=== PATIENT | male | born 1980 | race African-American/Black ===

== ENCOUNTER 2019-04-01 15:55 | Emergency (ER) | payer SELFPAY ==
[2019-04-01] MEDS ORDERED: DIPHENHYDRAMINE 50 MG/ML VIAL ONE (16:33)
[2019-04-01] MEDS ORDERED: NA CHLORIDE 0.9% 100 ML IV ONE (16:33)
[2019-04-01] MEDS ORDERED: KETOROLAC 30 MG/ML INJ ONE (16:33)
[2019-04-01] MEDS ORDERED: METOCLOPRAMIDE 10 MG/2mL INJ ONE (16:33)
[2019-04-01] MEDS ORDERED: NA CHLORIDE 0.9% 1,000 ML ONE (16:34)
--- NOTE | 2019-04-01 17:10 | RAD REPORT ---
EXAM DESCRIPTION: CT - Head Brain Wo Cont - 04/01/2019 5:02 pm CLINICAL HISTORY: HEADACHE Headache, drowsiness. COMPARISON: No comparisonsNo comparisons TECHNIQUE: All CT scans are performed using dose optimization technique as appropriate and may inclu de automated exposure control or mA/KV adjustment according to patient size. FINDINGS: The lateral ventricles, third ventricle and fourth ventricle appears enlarged with dilatat ion of the temporal horns compatible with moderate hydrocephalus.No acute hemorrhage or extra-axial f luid collection.No midline shift is evident. The paranasal sinuses and mastoids are clear. The calvarium is intact. IMPRESSION: Moderate hydrocephalus is suspected.
--- NOTE | 2019-04-01 17:37 | ER ---
Nurse's Notes [facility] Name: Gurpreet Davis Age: 38 yrs Sex: Male : 1980 Arrival Date: 04/01/2019 Time: 15:59 Bed 15 Private MD: Diagnosis: Hydrocephalus Presentation: 04/01 16:03 Presenting complaint: Presenting complaint: Patient states: Headache in frontal area ph and top of head this morning, also reports N/V and sweating while working outdoors in cold temp, reports taking Aleve which usually relieves his headaches but did not work today. 16:08 Transition of care: patient was not received from another setting of care. Onset of ph symptoms was April 01, 2019. Risk Assessment: Do you want to hurt yourself or someone else? Patient reports no desire to harm self or others. Initial Sepsis Screen: Does the patient meet any 2 criteria? No. Patient's initial sepsis screen is negative. Does the patient have a suspected source of infection? No. Patient's initial sepsis screen is negative. Care prior to arrival: Medication(s) given: Aleve at 1400. 16:08 Method Of Arrival: Ambulatory ph 16:08 Acuity: YURY 3 ph Historical: - Allergies: 16:11 No Known Allergies; ph - Home Meds: 16:11 None [Active]; ph - PMHx: 16:11 None; ph - PSHx: 16:11 None; ph - Immunization history:: Adult Immunizations unknown. - Social history:: Smoking status: Patient/guardian denies using tobacco. - Ebola Screening: : No symptoms or risks identified at this time. Screenin:40 Abuse screen: Denies threats or abuse. Denies injuries from another. Nutritional sg screening: No deficits noted. Tuberculosis screening: No symptoms or risk factors identified. Never had TB. Fall Risk None identified. Assessment: 16:40 General: Appears in no apparent distress. well groomed, well developed, well nourished, sg Behavior is calm, cooperative, appropriate for age. Pain: Complains of pain in forehead Quality of pain is described as aching, throbbing. Neuro: Level of Consciousness is awake, alert, obeys commands, Oriented to person, place, time, situation, Manager Of Corporate are equal bilaterally Moves all extremities. Full function Speech is normal, Facial symmetry appears normal, Reports headache in entire frontal area. Cardiovascular: Heart tones S1 S2 present Chest pain is denied. Respiratory: Airway is patent Respiratory effort is even, unlabored, Respiratory pattern is regular, symmetrical. GI: No signs and/or symptoms were reported involving the gastrointestinal system. : No signs and/or symptoms were reported regarding the genitourinary system. EENT: No signs and/or symptoms were reported regarding the EENT system. Derm: Skin is pink, warm \T\ dry. Musculoskeletal: Circulation, motion, and sensation intact. Range of motion: intact in all extremities. 17:59 Reassessment: Patient appears in no apparent distress at this time. Patient and/or sg family updated on plan of care and expected duration. Pain level reassessed. Patient is alert, oriented x 3, equal unlabored respirations, skin warm/dry/pink. Vital Signs: 16:10 BP 135 / 92; Pulse 88; Resp 18; Temp 98.3; Pulse Ox 97% on R/A; Weight 151.95 kg; Pain ph 4/10; ED Course: 15:59 Patient arrived in ED. mr 16:08 Mesfin Short, HALLEY is PHCP. pm1 16:08 Steve Garnica MD is Attending Physician. pm1 16:10 Triage completed. ph 16:11 Arm band placed on Patient placed in an exam room, on a stretcher. ph 16:13 Gee Salcedo, RN is Primary Nurse. sg 16:30 Patient has correct armband on for positive identification. Bed in low position. Call sg light in reach. Side rails up X2. deck hand on. Pulse ox on. NIBP on. Warm blanket given. Head of bed elevated. 16:38 Inserted saline lock: 20 gauge in right antecubital area, using aseptic technique. dh3 16:40 No provider procedures requiring assistance completed. sg 17:03 CT Head Brain wo Cont In Process Unspecified. EDMS 17:41 Chetan Shaffer MD is Referral Physician. pm1 18:00 IV discontinued, intact, bleeding controlled, No redness/swelling at site. Pressure sg dressing applied. Administered Medications: 16:40 Drug: Reglan 10 mg Route: IVP; Site: right antecubital; sg 17:42 Follow up: Response: No adverse reaction sg 16:40 Drug: TORadol - Ketorolac 15 mg Route: IVP; Site: right antecubital; sg 17:50 Follow up: Response: No adverse reaction sg 16:40 Drug: Benadryl 12.5 mg Route: IVP; Site: right antecubital; sg 18:05 Follow up: Response: No adverse reaction sg 16:40 Drug: NS 0.9% 1000 ml Route: IV; Rate: 1000 ml; Site: right antecubital; sg 17:45 Follow up: Response: No adverse reaction; IV Status: Completed infusion; IV Intake: sg 990ml 17:56 Drug: Diamox Sequels 500 mg Route: PO; jl7 18:15 Follow up: Response: No adverse reaction; Pain is unchanged, physician notified sg Intake: 17:45 IV: 990ml; Total: 990ml. sg Outcome: 17:36 Discharge ordered by MD. pm1 17:59 Discharged to home ambulatory, with friend. sg 17:59 Condition: good 17:59 Discharge instructions given to patient, Instructed on discharge instructions, follow up and referral plans. medication usage, safety practices, Demonstrated understanding of instructions, follow-up care, medications, Prescriptions given X 2. 18:27 Patient left the ED. sg Signatures: Dispatcher [employer] EDMS Gee Salcedo RN RN Cheikh, Sharmaine Ramos RN RN Mesfin Short, HALLEY ASSOCIATE DIRECTOR QA pm1 Diaz Holguin RN RN jl7 Nadege Verdin 3 Corrections: (The following items were deleted from the chart) 16:10 16:03 Presenting complaint: ph ph
--- NOTE | 2019-04-01 17:37 | EDPHYS ---
Physician Documentation [facility] Name: Gurpreet Davis Age: 38 yrs Sex: Male : 1980 Arrival Date: 04/01/2019 Time: 15:59 Bed 15 Private MD: ED Physician Steve Garnica HPI: 04/01 16:28 This 38 yrs old Black Male presents to ER via Ambulatory with complaints of Headache, pm1 Nausea. 16:28 The patient complains of pain to the forehead. The patient describes the headache as pm1 aching, constant. Onset: The symptoms/episode began/occurred this morning. Associated signs and symptoms: Pertinent positives: nausea, vomiting, Pertinent negatives: dizziness, fever, neck stiffness, Photophobia rash, sinus congestion, sinus tenderness, vision changes. Severity of symptoms: in the emergency department the pain has improved, mildly, a " 4" out of "10". Headache History: The patient has had previous headaches and this one is similar to previous episodes. The symptoms are alleviated by nothing. the symptoms are aggravated by nothing. The patient has experienced similar episodes in the past, a few times. The patient has not recently seen a physician. OTC NSAIDs typically work well for his headaches. Historical: - Allergies: 16:11 No Known Allergies; ph - Home Meds: 16:11 None [Active]; ph - PMHx: 16:11 None; ph - PSHx: 16:11 None; ph - Immunization history:: Adult Immunizations unknown. - Social history:: Smoking status: Patient/guardian denies using tobacco. - Ebola Screening: : No symptoms or risks identified at this time. ROS: 16:28 Constitutional: Negative for fever, chills, and weight loss, Eyes: Negative for injury, pm1 pain, redness, and discharge, ENT: Negative for injury, pain, and discharge, Neck: Negative for injury, pain, and swelling, Cardiovascular: Negative for chest pain, palpitations, and edema, Respiratory: Negative for shortness of breath, cough, wheezing, and pleuritic chest pain, Abdomen/GI: Negative for abdominal pain, nausea, vomiting, diarrhea, and constipation, Back: Negative for injury and pain, MS/Extremity: Negative for injury and deformity, Skin: Negative for injury, rash, and discoloration. 16:28 Neuro: Positive for headache, Negative for dizziness, numbness, tingling, weakness. Exam: 16:28 Constitutional: This is a well developed, well nourished patient who is awake, alert, pm1 and in no acute distress. Head/Face: Normocephalic, atraumatic. Eyes: Pupils equal round and reactive to light, extra-ocular motions intact. Lids and lashes normal. Conjunctiva and sclera are non-icteric and not injected. Cornea within normal limits. Periorbital areas with no swelling, redness, or edema. ENT: Nares patent. No nasal discharge, no septal abnormalities noted. Tympanic membranes are normal and external auditory canals are clear. Oropharynx with no redness, swelling, or masses, exudates, or evidence of obstruction, uvula midline. Mucous membranes moist. Neck: Trachea midline, no thyromegaly or masses palpated, and no cervical lymphadenopathy. Supple, full range of motion without nuchal rigidity, or vertebral point tenderness. No Meningismus. Chest/axilla: Normal chest wall appearance and motion. Nontender with no deformity. No lesions are appreciated. Cardiovascular: Regular rate and rhythm with a normal S1 and S2. No gallops, murmurs, or rubs. No pulse deficits. Respiratory: Lungs have equal breath sounds bilaterally, clear to auscultation and percussion. No rales, rhonchi or wheezes noted. No increased work of breathing, no retractions or nasal flaring. Abdomen/GI: Soft, non-tender, with normal bowel sounds. No distension or tympany. No guarding or rebound. No evidence of tenderness throughout. Back: No spinal tenderness. No costovertebral tenderness. Full range of motion. Skin: Warm, dry with normal turgor. Normal color with no rashes, no lesions, and no evidence of cellulitis. MS/ Extremity: Pulses equal, no cyanosis. Neurovascular intact. Full, normal range of motion. 16:28 Neuro: Orientation: is normal, Mentation: is normal, Cerebellar function: normal finger to nose testing, Motor: is normal, moves all fours, strength is normal, strength is 5/5 in all extremities, Sensation: is normal. Vital Signs: 16:10 BP 135 / 92; Pulse 88; Resp 18; Temp 98.3; Pulse Ox 97% on R/A; Weight 151.95 kg; Pain ph 4/10; MDM: 16:08 Patient medically screened. pm1 16:38 Data reviewed: vital signs. Data interpreted: Pulse oximetry: on room air is 97 %. pm1 Interpretation: normal. 17:25 Physician consultation: Stefan Schultz MD was called at 17:25, was contacted at 17:25, pm1 regarding consult, patient's condition, Patient needs a LAUNDRETTE OWNER Shunt but does not need it immediately or require transfer to hospital with neurosurgery. Will need to follow up with neurosurgery on outpatient basis. May discharge the patient home with Diamox 250-500 mg PO BID. Recommends contacting [facility] for patient follow up. 17:28 Physician consultation: Chetan Shaffer MD was contacted at 17:28, He is currently pm1 scrubbing up for surgery. Briefly discussed case with him and he said that he would call Dr. Schultz back. 17:31 Counseling: I had a detailed discussion with the patient and/or guardian regarding: the pm1 historical points, exam findings, and any diagnostic results supporting the discharge/admit diagnosis, radiology results, the need for outpatient follow up, for definitive care, a neurosurgeon, to return to the emergency department if symptoms worsen or persist or if there are any questions or concerns that arise at home. 18:35 Physician consultation: Chetan Shaffer MD Called back and informed me that he does not pm1 perform LAUNDRETTE OWNER shunts anymore. He refers the patient to other neurosurgeons in the [facility] or [facility]. 18:43 ED course: Gave the patient information for neurosurgeons at [facility] pm1 and [facility]. 04/01 16:27 Order name: CT Head Brain wo Cont; Complete Time: 17:14 pm1 Administered Medications: 16:40 Drug: Reglan 10 mg Route: IVP; Site: right antecubital; sg 17:42 Follow up: Response: No adverse reaction sg 16:40 Drug: TORadol - Ketorolac 15 mg Route: IVP; Site: right antecubital; sg 17:50 Follow up: Response: No adverse reaction sg 16:40 Drug: Benadryl 12.5 mg Route: IVP; Site: right antecubital; sg 18:05 Follow up: Response: No adverse reaction sg 16:40 Drug: NS 0.9% 1000 ml Route: IV; Rate: 1000 ml; Site: right antecubital; sg 17:45 Follow up: Response: No adverse reaction; IV Status: Completed infusion; IV Intake: sg 990ml 17:56 Drug: Diamox Sequels 500 mg Route: PO; jl7 18:15 Follow up: Response: No adverse reaction; Pain is unchanged, physician notified sg Disposition: 04/02 07:32 Co-signature as Attending Physician, Steve Garnica MD I agree with the assessment and kdr plan of care. Disposition: 04/01/19 17:36 Discharged to Home. Impression: Hydrocephalus. - Condition is Stable. - Discharge Instructions: General Headache Without Cause, Hydrocephalus, Pediatric. - Prescriptions for Diamox Sequels 500 mg Oral capsule, extended release - take 1 capsule by ORAL route 2 times per day; 30 capsule. Zofran 4 mg Oral Tablet - take 1 tablet by ORAL route every 12 hours As needed; 20 tablet. - Work release form, Medication Reconciliation Form, Thank You Letter, Antibiotic Education, Prescription Opioid Use form. - Follow up: Emergency Department; When: As needed; Reason: Worsening of condition. Follow up: Chetan Shaffer MD; When: 1 - 2 days; Reason: Recheck today's complaints, Continuance of care, Re-evaluation by your physician. - Problem is new. - Symptoms have improved. Signatures: Dispatcher [employer] EDMS Gee Salcedo, RN Steve Rodriguez MD MD [facility] Sharmaine Pacheco RN RN Mesfin Short, BEADING MACHINE OPERATOR BEADING MACHINE OPERATOR pm1 Diaz Holguin RN RN jl7 Corrections: (The following items were deleted from the chart) 04/01 17:41 17:36 04/01/2019 17:36 Discharged to Home. Impression: Hydrocephalus. Condition is pm1 Stable. Forms are Medication Reconciliation Form, Thank You Letter, Antibiotic Education, Prescription Opioid Use. Follow up: Emergency Department; When: As needed; Reason: Worsening of condition. Follow up: Private Physician; When: 2 - 3 days; Reason: Recheck today's complaints, Continuance of care, Re-evaluation by your physician. Problem is new. Symptoms have improved. pm1 18:27 17:41 04/01/2019 17:36 Discharged to Home. Impression: Hydrocephalus. Condition is sg Stable. Discharge Instructions: Hydrocephalus, Pediatric, General Headache Without Cause. Prescriptions for Diamox Sequels 500 mg Oral capsule, extended release - take 1 capsule by ORAL route 2 times per day; 30 capsule, Zofran 4 mg Oral Tablet - take 1 tablet by ORAL route every 12 hours As needed; 20 tablet. and Forms are Medication Reconciliation Form, Thank You Letter, Antibiotic Education, Prescription Opioid Use. Follow up: Emergency Department; When: As needed; Reason: Worsening of condition. Follow up: Chetan Shaffer; When: 1 - 2 days; Reason: Recheck today's complaints, Continuance of care, Re-evaluation by your physician. Problem is new. Symptoms have improved. pm1
[2019-04-01] MEDS ORDERED: acetaZOLAMIDE 250 MG TAB PO ONE (18:00)
[2019-04-01 18:58] VITALS: BP 135/92; TEMP 98.3; O2SAT 97
== END 2019-04-01 18:27 | disposition home or self-care (01) ==
LOC: ER 15:55
DX: G91.9 Hydrocephalus, unspecified (principal)
CPT/HCPCS: 70450; 96361; 96374; 96375; 99284; J1200; J2765; J7030

== ENCOUNTER 2020-03-22 13:27 | Emergency (ER) | payer OTHER, SELFPAY ==
[2020-03-22] MEDS ORDERED: CYCLOBENZAPRINE 10 MG TAB ONE (15:02)
--- NOTE | 2020-03-22 15:30 | RAD REPORT ---
EXAM DESCRIPTION: CT - Stone Protocol - 03/22/2020 3:15 pm CLINICAL HISTORY: Flank pain. ABD PAIN COMPARISON: No comparisons TECHNIQUE: Axial images were obtained without oral or IV contrast. Lack of contrast limits solid org an and vascular assessment. The [id number] spans the entirety of the system partially obscuring uppermost abdomen and lung bases. Coronal reformatted images were obtained and reviewed. All CT scans are performed using dose optimization technique as appropriate and may include automated exposure control or mA/KV adjustment according to patient size. FINDINGS: The lower lung [place] are clear. Imaged portions of the liver and spleen show no suspicious findings on non-contrast imaging. The panc reas and adrenal glands are normal. No pathologic lymphadenopathy in the abdomen or pelvis. No urinary tract stones or obstructive uropathy. No bowel obstruction, free air, free fluid or abscess. Normal appendix noted. No significant bony abnormality. IMPRESSION: No urinary tract stones or obstructive uropathy.
--- NOTE | 2020-03-22 15:39 | EDPHYS ---
Physician Documentation [facility] Name: Gurpreet Davis Age: 39 yrs Sex: Male : 1980 Arrival Date: 03/22/2020 Time: 13:33 Bed 14 Private MD: ED Physician Prateek Cast HPI: 03/22 15:36 This 39 yrs old Black Male presents to ER via Ambulatory with complaints of Abdominal kb Pain. 15:36 The patient presents with abdominal pain left lateral abd. Onset: The symptoms/episode kb began/occurred today. The symptoms do not radiate. Associated signs and symptoms: none. The symptoms are described as sore. Modifying factors: the symptoms are aggravated by movement. Severity of pain: At its worst the pain was mild in the emergency department the pain is unchanged. The patient has not experienced similar symptoms in the past. The patient has not recently seen a physician. Pt reports left lateral abd soreness, like he did crunches. States the pain is worse with stretching, twisted, lifting, moving.. Historical: - Allergies: 13:53 No Known Allergies; jd3 - Home Meds: 13:53 None [Active]; jd3 - PMHx: 13:53 None; jd3 - PSHx: 13:53 None; jd3 - Immunization history:: Adult Immunizations unknown. - Social history:: Smoking status: Patient denies any tobacco usage or history of. ROS: 15:36 Constitutional: Negative for fever, chills, and weight loss, Cardiovascular: Negative kb for chest pain, palpitations, and edema, Respiratory: Negative for shortness of breath, cough, wheezing, and pleuritic chest pain, Back: Negative for injury and pain, MS/Extremity: Negative for injury and deformity, Skin: Negative for injury, rash, and discoloration, Neuro: Negative for headache, weakness, numbness, tingling, and seizure. 15:36 Abdomen/GI: Positive for abdominal pain, Negative for nausea, vomiting, and diarrhea. Exam: 15:36 Constitutional: This is a well developed, well nourished patient who is awake, alert, kb and in no acute distress. Head/Face: Normocephalic, atraumatic. Chest/axilla: Normal chest wall appearance and motion. Nontender with no deformity. No lesions are appreciated. Cardiovascular: Regular rate and rhythm with a normal S1 and S2. No gallops, murmurs, or rubs. Normal PMI, no JVD. No pulse deficits. Respiratory: Lungs have equal breath sounds bilaterally, clear to auscultation and percussion. No rales, rhonchi or wheezes noted. No increased work of breathing, no retractions or nasal flaring. Abdomen/GI: Soft, non-tender, with normal bowel sounds. No distension or tympany. No guarding or rebound. No evidence of tenderness throughout. Back: No spinal tenderness. No costovertebral tenderness. Full range of motion. Skin: Warm, dry with normal turgor. Normal color with no rashes, no lesions, and no evidence of cellulitis. MS/ Extremity: Pulses equal, no cyanosis. Neurovascular intact. Full, normal range of motion. Neuro: Awake and alert, GCS 15, oriented to person, place, time, and situation. Cranial nerves II-XII grossly intact. Motor strength 5/5 in all extremities. Sensory grossly intact. Cerebellar exam normal. Normal gait. Vital Signs: 13:53 BP 153 / 95; Pulse 83; Resp 17 S; Temp 97.3(TE); Pulse Ox 97% on R/A; Weight 158.76 kg jd3 (R); Height 5 ft. 7 in. (170.18 cm) (R); Pain 10/10; 15:45 BP 139 / 77; Pulse 81; Resp 16 S; Pulse Ox 98% on R/A; ca1 13:53 Body Mass Index 54.82 (158.76 kg, 170.18 cm) jd3 MDM: 14:33 Patient medically screened. kb 15:35 Data reviewed: vital signs, nurses notes. Data interpreted: Pulse oximetry: on room air kb is 97 %. Interpretation: normal. Counseling: I had a detailed discussion with the patient and/or guardian regarding: the historical points, exam findings, and any diagnostic results supporting the discharge/admit diagnosis, radiology results, the need for outpatient follow up, a family practitioner, to return to the emergency department if symptoms worsen or persist or if there are any questions or concerns that arise at home. 03/22 14:42 Order name: CT Stone Protocol; Complete Time: 15:35 kb Administered Medications: 14:50 Drug: Flexeril 10 mg Route: PO; ca1 Disposition: 16:32 Co-signature as Attending Physician, Prateek Cast MD. rn Disposition: 03/22/20 15:38 Discharged to Home. Impression: Strain of muscle, fascia and tendon of abdomen. - Condition is Stable. - Discharge Instructions: Muscle Strain, [id number]. - Prescriptions for Ibuprofen 800 mg Oral Tablet - take 1 tablet by ORAL route every 8 hours As needed take with food; 30 tablet. Cyclobenzaprine 10 mg Oral Tablet - take 1 tablet by ORAL route every 8 hours As needed; 21 tablet. - Medication Reconciliation Form, Thank You Letter, Antibiotic Education, Prescription Opioid Use form. - Follow up: Emergency Department; When: As needed; Reason: Worsening of condition. Follow up: Private Physician; When: 2 - 3 days; Reason: Recheck today's complaints, Continuance of care, Re-evaluation by your physician. Signatures: Dispatcher [employer] EDMS Denisse Mota, PAINTER ROUGH-C PAINTER ROUGH-Ckb Prateek Cast MD MD rn Davies, Jonathon, RN RN jd3 Andra Maciel RN RN ca1 Corrections: (The following items were deleted from the chart) 16:12 15:38 03/22/2020 15:38 Discharged to Home. Impression: Strain of muscle, fascia and ca1 tendon of abdomen. Condition is Stable. Forms are Medication Reconciliation Form, Thank You Letter, Antibiotic Education, Prescription Opioid Use. Follow up: Emergency Department; When: As needed; Reason: Worsening of condition. Follow up: Private Physician; When: 2 - 3 days; Reason: Recheck today's complaints, Continuance of care, Re-evaluation by your physician. kb
--- NOTE | 2020-03-22 15:39 | ER ---
Nurse's Notes [facility] Name: Gurpreet Davis Age: 39 yrs Sex: Male : 1980 Arrival Date: 03/22/2020 Time: 13:33 Bed 14 Private MD: Diagnosis: Strain of muscle, fascia and tendon of abdomen Presentation: 03/22 13:52 Chief complaint: Patient states: "I got to work and I sneezed and seance then I feel jd3 like i have been doing crunches, but i haven't done anything.". Coronavirus screen: At this time, the client does not indicate any symptoms associated with coronavirus-19. Ebola Screen: Patient negative for fever greater than or equal to 101.5 degrees Fahrenheit, and additional compatible Ebola Virus Disease symptoms. Initial Sepsis Screen: Does the patient meet any 2 criteria? No. Patient's initial sepsis screen is negative. Does the patient have a suspected source of infection? No. Patient's initial sepsis screen is negative. Risk Assessment: Do you want to hurt yourself or someone else? Patient reports no desire to harm self or others. Onset of symptoms was March 22, 2020. 13:52 Method Of Arrival: Ambulatory jd3 13:52 Acuity: YURY 3 jd3 Historical: - Allergies: 13:53 No Known Allergies; jd3 - Home Meds: 13:53 None [Active]; jd3 - PMHx: 13:53 None; jd3 - PSHx: 13:53 None; jd3 - Immunization history:: Adult Immunizations unknown. - Social history:: Smoking status: Patient denies any tobacco usage or history of. Screenin:35 Abuse screen: Denies threats or abuse. Denies injuries from another. Nutritional ca1 screening: No deficits noted. Tuberculosis screening: No symptoms or risk factors identified. Fall Risk None identified. Assessment: 14:35 General: Appears in no apparent distress. uncomfortable, Behavior is calm, cooperative, ca1 appropriate for age. Pain: Complains of pain in anterior aspect of right lateral abdomen and left upper quadrant Pain does not radiate. Pain currently is 8 out of 10 on a pain scale. Pain began 4 hours ago. Neuro: Level of Consciousness is awake, alert, obeys commands, Oriented to person, place, time, situation. Cardiovascular: Heart tones S1 S2 present Capillary refill < 3 seconds Patient's skin is warm and dry. Respiratory: Airway is patent Respiratory effort is even, unlabored, Respiratory pattern is regular, symmetrical, Breath sounds are clear bilaterally. GI: Abdomen is round non-distended, Bowel sounds present X 4 quads. Abd is soft and non tender X 4 quads. : No signs and/or symptoms were reported regarding the genitourinary system. EENT: No signs and/or symptoms were reported regarding the EENT system. Derm: Skin is intact, is healthy with good turgor, Skin is pink, warm \\T\\ dry. Musculoskeletal: Circulation, motion, and sensation intact. Capillary refill < 3 seconds. 15:45 Reassessment: Patient appears in no apparent distress at this time. Patient and/or ca1 family updated on plan of care and expected duration. Pain level reassessed. Patient is alert, oriented x 3, equal unlabored respirations, skin warm/dry/pink. Vital Signs: 13:53 BP 153 / 95; Pulse 83; Resp 17 S; Temp 97.3(TE); Pulse Ox 97% on R/A; Weight 158.76 kg jd3 (R); Height 5 ft. 7 in. (170.18 cm) (R); Pain 10/10; 15:45 BP 139 / 77; Pulse 81; Resp 16 S; Pulse Ox 98% on R/A; ca1 13:53 Body Mass Index 54.82 (158.76 kg, 170.18 cm) jd3 ED Course: 13:33 Patient arrived in ED. ag5 13:53 Triage completed. jd3 13:55 Arm band placed on. jd3 13:58 Denisse Mota FNP-C is PHCP. kb 13:58 Prateek Cast MD is Attending Physician. kb 14:35 Patient has correct armband on for positive identification. Bed in low position. Call ca1 light in reach. Side rails up X 1. Pulse ox on. NIBP on. Warm blanket given. 14:47 Andra Maciel, RN is Primary Nurse. ca1 15:16 CT Stone Protocol In Process Unspecified. EDMS 16:12 No provider procedures requiring assistance completed. Patient did not have IV access ca1 during this emergency room visit. Administered Medications: 14:50 Drug: Flexeril 10 mg Route: PO; ca1 Outcome: 15:38 Discharge ordered by . jaxson 16:12 Discharged to home ambulatory, with significant other. ca1 16:12 Condition: stable 16:12 Discharge instructions given to patient, Instructed on discharge instructions, follow up and referral plans. medication usage, Demonstrated understanding of instructions, follow-up care, medications, Prescriptions given X 2. 16:12 Patient left the ED. ca1 Signatures: Dispatcher [employer] EDCO Denisse Mota, ALFREDO-C ALFREDO-Cj Gonzales RN RN jd3 Andra Maciel RN RN ca1 Florin Webster ag5
[2020-03-22 16:53] VITALS: TEMP 97.3
[2020-03-22 16:54] VITALS: BP 139/77; O2SAT 98
== END 2020-03-22 16:12 | disposition home or self-care (01) ==
LOC: ER 13:27
DX: S39.011A Strain of muscle, fascia and tendon of abdomen, initial encounter (principal); Y93.A9 Activity, other involving cardiorespiratory exercise; Y93.B2 Activity, push-ups, pull-ups, sit-ups; Y92.9 Unspecified place or not applicable
CPT/HCPCS: 74176; 76377; 99284

== ENCOUNTER 2022-12-22 11:38 | Emergency (ER) | payer OTHER ==
--- NOTE | 2022-12-22 12:27 | ER ---
Nurse's Notes [facility] Name: Gurpreet Davis Age: 42 yrs Sex: Male : 1980 Arrival Date: 12/22/2022 Time: 11:38 Bed IW1 Private MD: Diagnosis: Other conjunctivitis Presentation: 12/22 12:17 Chief complaint: Patient states: woke up and his right eye was itchy then he realized iw his vision was blurry, like there is a film over it , there was small amount of drainage but it;s gone now and the itching is gone. Coronavirus screen: At this time, the client does not indicate any symptoms associated with coronavirus-19. Ebola Screen: Patient negative for fever greater than or equal to 101.5 degrees Fahrenheit, and additional compatible Ebola Virus Disease symptoms Patient denies exposure to infectious person. Patient denies travel to an Ebola-affected area in the 21 days before illness onset. No symptoms or risks identified at this time. Initial Sepsis Screen: Does the patient meet any 2 criteria? No. Patient's initial sepsis screen is negative. Does the patient have a suspected source of infection? No. Patient's initial sepsis screen is negative. Risk Assessment: Do you want to hurt yourself or someone else? Patient reports no desire to harm self or others. Onset of symptoms was December 22, 2022. 12:17 Method Of Arrival: Ambulatory iw 12:17 Acuity: YURY 3 iw Historical: - Allergies: 12:19 No Known Allergies; iw - PMHx: 12:19 Hypertensive disorder; iw - PSHx: 12:19 None; iw - Social history:: Smoking status: Patient denies any tobacco usage or history of. - Family history:: not pertinent. Vital Signs: 12:17 BP 162 / 92; Pulse 75; Resp 16; Temp 97.6; Pulse Ox 97% on R/A; Weight 158.76 kg; iw Height 5 ft. 7 in. ; 12:17 Body Mass Index 54.82 (158.76 kg, 170.18 cm) iw ED Course: 11:41 Patient arrived in ED. im 11:42 Erik Narvaez MD is Attending Physician. rt 12:19 Triage completed. iw 12:20 Arm band placed on. iw 13:05 Viky Edge, RN is Primary Nurse. iw Administered Medications: No medications were administered Outcome: 12:26 Discharge ordered by . rt 13:05 Patient left the ED. iw Signatures: Viky Edge RN RN iw Erik Narvaez MD MD rt Louann Andre
--- NOTE | 2022-12-22 12:27 | EDPHYS ---
Physician Documentation [facility] Name: Gurpreet Davis Age: 42 yrs Sex: Male : 1980 Arrival Date: 12/22/2022 Time: 11:38 Bed IW1 Private MD: ED Physician Erik Narvaez HPI: 12/22 19:08 This 42 yrs old Black Male presents to ER via Ambulatory with complaints of Blurred rt Vision. 19:08 Patient woke up this morning, noted that he had crusting and some discharge to his rt right eye. Reports that it was itchy but not painful. Reports having a mildly blurred vision since then. Denies injury, foreign body, other acute complaints. Symptoms are very mild in severity, no other aggravating elevating factors. Historical: - Allergies: 12:19 No Known Allergies; iw - PMHx: 12:19 Hypertensive disorder; iw - PSHx: 12:19 None; iw - Social history:: Smoking status: Patient denies any tobacco usage or history of. - Family history:: not pertinent. ROS: 19:08 Constitutional: Negative for fever, chills, and weight loss, ENT: Negative for injury, rt pain, and discharge, Cardiovascular: Negative for chest pain, palpitations, and edema, Respiratory: Negative for shortness of breath, cough, wheezing, and pleuritic chest pain, Abdomen/GI: Negative for abdominal pain, nausea, vomiting, diarrhea, and constipation, Skin: Negative for injury, rash, and discoloration, Neuro: Negative for headache, weakness, numbness, tingling, and seizure, Psych: Negative for depression, anxiety, suicide ideation, homicidal ideation, and hallucinations. 19:08 Eyes: Positive for blurry vision, discharge. Exam: 19:08 Constitutional: This is a well developed, well nourished patient who is awake, alert, rt and in no acute distress. Head/Face: Normocephalic, atraumatic. Chest/axilla: Normal chest wall appearance and motion. Nontender with no deformity. No lesions are appreciated. Cardiovascular: Regular rate and rhythm with a normal S1 and S2. No gallops, murmurs, or rubs. Normal PMI, no JVD. No pulse deficits. Respiratory: Lungs have equal breath sounds bilaterally, clear to auscultation and percussion. No rales, rhonchi or wheezes noted. No increased work of breathing, no retractions or nasal flaring. Abdomen/GI: Soft, non-tender, with normal bowel sounds. No distension or tympany. No guarding or rebound. No evidence of tenderness throughout. 19:08 Eyes: Mild conjunctival injection on the right, no discharge noted, extraocular muscles are intact, pupils equal round and reactive to light. Vital Signs: 12:17 BP 162 / 92; Pulse 75; Resp 16; Temp 97.6; Pulse Ox 97% on R/A; Weight 158.76 kg; iw Height 5 ft. 7 in. ; 12:17 Body Mass Index 54.82 (158.76 kg, 170.18 cm) iw MDM: 12:26 Patient medically screened. rt 19:08 Differential diagnosis: Conjunctivitis, iritis. Data reviewed: vital signs, nurses rt notes. Test considered but Not performed: CT: No headache, with itchiness and discharge, was consistent with conjunctivitis, CT scan of the head not indicated. Counseling: I had a detailed discussion with the patient and/or guardian regarding: the historical points, exam findings, and any diagnostic results supporting the discharge/admit diagnosis, the need for outpatient follow up, to return to the emergency department if symptoms worsen or persist or if there are any questions or concerns that arise at home. Administered Medications: No medications were administered Disposition Summary: 12/22/22 12:26 Discharge Ordered Location: Home rt Problem: new rt Symptoms: have improved rt Condition: Stable rt Diagnosis - Other conjunctivitis rt Followup: rt - With: Private Physician - When: 2 - 3 days - Reason: Discharge Instructions: - Discharge Summary Sheet rt - Viral Conjunctivitis, Adult rt Forms: - Medication Reconciliation Form rt - Thank You Letter rt - Antibiotic Education rt - Prescription Opioid Use rt - Patient Portal Instructions rt Prescriptions: - Erythromycin 5 mg/gram (0.5 %) Ophthalmic Ointment - apply 1 ribbon by OPHTHALMIC route every 8 hours; 1 Each; Refills: 0, Product rt Selection Permitted Signatures: Viky Edge RN RN iw Erik Narvaez MD MD rt
[2022-12-22 13:08] VITALS: BP 162/92; TEMP 97.6; O2SAT 97
== END 2022-12-22 13:05 | disposition home or self-care (01) ==
LOC: ER 11:38
DX: H10.89 Other conjunctivitis (principal)
CPT/HCPCS: 99281

== ENCOUNTER 2022-12-25 13:05 | Emergency (ER) | payer OTHER ==
--- NOTE | 2022-12-25 14:20 | RAD REPORT ---
EXAM DESCRIPTION: CT - Head Brain Wo Cont - 12/25/2022 2:02 pm CLINICAL HISTORY: Hypertensive urgency headache COMPARISON: Head Brain Wo Cont dated 04/01/2019 TECHNIQUE: All CT scans are performed using dose optimization technique as appropriate and may inclu de automated exposure control or mA/KV adjustment according to patient size. FINDINGS: No acute intracranial hemorrhage. Ventriculomegaly which was also present on the prior CT. The severity of the ventriculomegaly is unchanged. The sulci are partially effaced.No areas of brain edema or evidence of midline shift. Mucous retention cyst left maxillary sinus. The calvarium is intact. IMPRESSION: Ventriculomegaly which is similar to 04/01/2019. No new acute intracranial process ident ified.
[2022-12-25] MEDS ORDERED: HYDROMORPHONE HCL 1 MG/ML INJ ONE (14:28)
[2022-12-25] MEDS ORDERED: ONDANSETRON 4 MG/2 ML VIAL ONE (14:28)
--- NOTE | 2022-12-25 14:33 | RAD REPORT ---
EXAM DESCRIPTION: RAD - Chest Single View - 12/25/2022 2:08 pm CLINICAL HISTORY: HTN urgency COMPARISON: No comparisons FINDINGS: Lines: None. Lungs: No evidence of edema or pneumonia. Pleural: No significant pleural effusions or pneumothorax. Cardiac: Cardiomegaly Mediastinum: Within normal limits. Bones: No acute fractures. Other: None IMPRESSION: No acute cardiopulmonary disease.
[2022-12-25 15:04] LABS: Absolute Lymphocytes (CBC) 0.8 K/uL (0.7-4.9); Hematocrit 43.2 % (39.6-49.0); Lymphocytes % 7.9 % (15.3-44.8); MCV 90.8 fL (80-100); MPV 9.9 fL (7.6-11.3); Platelets 254 thou/uL (152-406); RBC Red Blood Cell Count 4.77 M/uL (4.33-5.43)
[2022-12-25 15:21] LABS: Potassium 4.1 mEq/L (3.5-5.1)
--- NOTE | 2022-12-25 15:48 | ER ---
Nurse's Notes [facility] Name: Gurpreet Davis Age: 42 yrs Sex: Male : 1980 Arrival Date: 12/25/2022 Time: 13:05 Bed 4 Private MD: Diagnosis: Hypertensive urgency Presentation: 12/25 13:33 Chief complaint: Patient states: headache and high blood pressure onset this morning. cm10 Pt states that they took his BP at work and it was 181/126 and was told to come to the ED. Pt states vomiting X1. Coronavirus screen: Vaccine status: Patient reports receiving the 2nd dose of the covid vaccine. Ebola Screen: Patient denies travel to an Ebola-affected area in the 21 days before illness onset. No symptoms or risks identified at this time. Initial Sepsis Screen: Does the patient meet any 2 criteria? No. Patient's initial sepsis screen is negative. Does the patient have a suspected source of infection? No. Patient's initial sepsis screen is negative. Risk Assessment: Do you want to hurt yourself or someone else? Patient reports no desire to harm self or others. Onset of symptoms was December 25, 2022. 13:33 Method Of Arrival: Ambulatory cm10 13:33 Acuity: YURY 3 cm10 Triage Assessment: 14:35 General: Appears in no apparent distress. comfortable, Behavior is calm, cooperative. db Pain: Complains of pain in head. Neuro: Level of Consciousness is awake, alert, obeys commands, Oriented to person, place, time, situation. Cardiovascular: Reports diaphoresis, Denies chest pain, Capillary refill < 3 seconds Patient's skin is warm and dry. Respiratory: Airway is patent Respiratory effort is even, unlabored, Respiratory pattern is regular, symmetrical. GI: Abdomen is flat, non-distended, Reports nausea, vomiting. Historical: - Allergies: 13:35 No Known Allergies; cm10 - PMHx: 13:35 Hypertensive disorder; cm10 - Immunization history:: Adult Immunizations unknown. - Social history:: Smoking status: Patient denies any tobacco usage or history of. Screenin:35 [facility] ED Fall Risk Assessment (Adult) History of falling in the last 3 months, db including since admission No falls in past 3 months (0 pts) Confusion or Disorientation No (0 pts) Intoxicated or Sedated No (0 pts) Impaired Gait No (0 pts) Mobility Assist Device Used No (0 pt) Altered Elimination No (0 pt) Score/Fall Risk Level 0 - 2 = Low Risk Oriented to surroundings, Maintained a safe environment. Abuse screen: Denies threats or abuse. Denies injuries from another. Nutritional screening: No deficits noted. Tuberculosis screening: No symptoms or risk factors identified. Assessment: 14:05 Reassessment: PATIENT RETURNED TO ROOM FROM RADIOLOGY. ss 14:20 Reassessment: PATIENT AMBULATORY TO RESTROOM. ss 15:51 GI: No deficits noted. ko1 15:56 GI: Reports nausea, vomiting. ko1 15:56 GI: Abdomen is obese. ko1 Vital Signs: 13:33 BP 171 / 102; Pulse 91; Resp 18 S; Temp 98.4; Pulse Ox 100% on R/A; Weight 158.76 kg; cm10 Height 5 ft. 7 in. ; Pain 6/10; 13:53 BP 166 / 129; Pulse 88; Resp 20; Pulse Ox 99% ; ko1 14:35 BP 141 / 78; Pulse 82; Resp 18; Pulse Ox 99% on R/A; db 15:40 BP 135 / 75; Pulse 81; Resp 18; Pulse Ox 99% ; ko1 13:33 Body Mass Index 54.82 (158.76 kg, 170.18 cm) cm10 13:33 Pain Scale: Adult cm10 ED Course: 13:07 Patient arrived in ED. mg5 13:29 Reyes Fernandez MD is Attending Physician. sp3 13:35 Triage completed. cm10 13:36 Arm band placed on. cm10 13:45 Rosetta Pierce, RN is Primary Nurse. ko1 14:02 CT Head Brain wo Cont In Process Unspecified. EDMS 14:08 XRAY Chest (1 view) In Process Unspecified. EDMS 14:35 Patient has correct armband on for positive identification. Placed in gown. Bed in low db position. Call light in reach. Side rails up X 1. Client placed on continuous cardiac and pulse oximetry monitoring. NIBP monitoring applied. 14:35 Inserted saline lock: 20 gauge in right antecubital area, using aseptic technique. db Blood collected. 15:51 Provided Education on: NA. ko1 15:51 No provider procedures requiring assistance completed. IV discontinued, intact, ko1 bleeding controlled, No redness/swelling at site. Pressure dressing applied. Administered Medications: 14:35 Drug: HYDROmorphone IVP 1 mg Route: IVP; Site: right antecubital; db 14:35 Drug: Ondansetron IVP 4 mg Route: IVP; Site: right antecubital; db Medication: 14:35 VIS not applicable for this client. db Outcome: 15:47 Discharge ordered by . sp3 15:56 Discharged to home ambulatory, with family. ko1 15:56 Condition: good 15:56 Discharge instructions given to patient, family, Instructed on discharge instructions, follow up and referral plans. Demonstrated understanding of instructions, follow-up care. 15:58 Patient left the ED. ko1 Signatures: Dispatcher [employer] EDMeliza Orona RN RN Reyes Cope MD MD sp3 Rosetta Pierce RN RN ko1 Annika Spears RN RN db Martinez, Clarissa, RN RN 10 Feli Monterroso 5
--- NOTE | 2022-12-25 15:48 | EDPHYS ---
Physician Documentation [facility] Name: Gurpreet Davis Age: 42 yrs Sex: Male : 1980 Arrival Date: 12/25/2022 Time: 13:05 Bed 4 Private MD: ED Physician Reyes Fernandez HPI: 12/25 13:47 This 42 yrs old Black Male presents to ER via Ambulatory with complaints of High Blood sp3 Pressure, Vomiting, Headache. 13:47 42-year-old male with history of hypertension on longstanding medications presents to [facility] the ED with chief complaint headache and hypertension. 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 He went to the safety office and was found to have an elevated blood pressure in the 200 range systolically and was then referred here for further evaluation. Patient currently still has a headache approximately 5/10. Patient denies thunderclap headache any other associated symptoms including syncope, focal neurological deficit, neck pain, back pain, chest pain, shortness of breath, abdominal pain, vomiting, continued nausea, diarrhea, rash, known sick contacts, travel history, or any other signs or symptoms on ROS at this time.. Historical: - Allergies: 13:35 No Known Allergies; cm10 - PMHx: 13:35 Hypertensive disorder; cm10 - Immunization history:: Adult Immunizations unknown. - Social history:: Smoking status: Patient denies any tobacco usage or history of. ROS: 13:48 Constitutional: Negative for fever, chills, and weight loss, Eyes: Negative for injury, sp3 pain, redness, and discharge, ENT: Negative for injury, pain, and discharge, Neck: Negative for injury, pain, and swelling, Cardiovascular: Negative for chest pain, palpitations, and edema, Respiratory: Negative for shortness of breath, cough, wheezing, and pleuritic chest pain, Abdomen/GI: Negative for abdominal pain, nausea, vomiting, diarrhea, and constipation, Back: Negative for injury and pain, MS/Extremity: Negative for injury and deformity, Skin: Negative for injury, rash, and discoloration, Allergy/Immunology: Negative for hives, rash, and allergies, Endocrine: Negative for neck swelling, polydipsia, polyuria, polyphagia, and marked weight changes, Hematologic/Lymphatic: Negative for swollen nodes, abnormal bleeding, and unusual bruising. 13:48 All other systems are negative. Exam: 13:48 Constitutional: This is a well developed, well nourished patient who is awake, alert, sp3 and in no acute distress. Head/Face: Normocephalic, atraumatic. ENT: Nares patent. No nasal discharge, no septal abnormalities noted. External auditory canals are clear. Oropharynx with no redness, swelling, or masses, exudates, or evidence of obstruction, uvula midline. Mucous membranes moist. Neck: Trachea midline, no thyromegaly or masses palpated, and no cervical lymphadenopathy. Supple, full range of motion without nuchal rigidity, or vertebral point tenderness. No Meningismus. Chest/axilla: Normal chest wall appearance and motion. Nontender with no deformity. No lesions are appreciated. Cardiovascular: Regular rate and rhythm with a normal S1 and S2. No gallops, murmurs, or rubs. Normal PMI, no JVD. No pulse deficits. Respiratory: Lungs have equal breath sounds bilaterally, clear to auscultation and percussion. No rales, rhonchi or wheezes noted. No increased work of breathing, no retractions or nasal flaring. Abdomen/GI: Soft, non-tender, with normal bowel sounds. No distension or tympany. No guarding or rebound. No evidence of tenderness throughout. Back: No spinal tenderness. No costovertebral tenderness. Full range of motion. Skin: Warm, dry with normal turgor. Normal color with no rashes, no lesions, and no evidence of cellulitis. MS/ Extremity: Pulses equal, no cyanosis. Neurovascular intact. Full, normal range of motion. Neuro: Awake and alert, GCS 15, oriented to person, place, time, and situation. Cranial nerves II-XII grossly intact. Motor strength 5/5 in all extremities. Sensory grossly intact. Cerebellar exam normal. Normal gait. Psych: Awake, alert, with orientation to person, place and time. Behavior, mood, and affect are within normal limits. 15:02 ECG was reviewed by the Attending Physician. EKG demonstrates normal sinus rhythm at 81 sp3 bpm with normal intervals, normal QRS, normal axis, nonspecific diffuse ST/T changes no evidence of acute ischemia. Vital Signs: 13:33 BP 171 / 102; Pulse 91; Resp 18 S; Temp 98.4; Pulse Ox 100% on R/A; Weight 158.76 kg; cm10 Height 5 ft. 7 in. ; Pain 6/10; 13:53 BP 166 / 129; Pulse 88; Resp 20; Pulse Ox 99% ; ko1 14:35 BP 141 / 78; Pulse 82; Resp 18; Pulse Ox 99% on R/A; db 15:40 BP 135 / 75; Pulse 81; Resp 18; Pulse Ox 99% ; ko1 13:33 Body Mass Index 54.82 (158.76 kg, 170.18 cm) cm10 13:33 Pain Scale: Adult cm10 MDM: 13:40 Patient medically screened. sp3 13:49 Data reviewed: vital signs, nurses notes, lab test result(s), EKG, radiologic studies. sp3 ED course: 42-year-old male with hypertension and possible heat related illness. Will workup as hypertensive urgency looking for endorgan damage. Workup will include CT scan of the head, laboratory values including troponin and creatinine, and any antihypertensive medications as needed. Will treat pain with Dilaudid and Zofran IV.. 15:46 ED course: Blood pressure is down to 135/83. Patient has no further headache and is sp3 feeling much better. CT scan is normal and laboratory values are all normal with exception of creatinine at 1.4. No old creatinine values were found so I told patient that it is imperative that he follows up with his PCP regarding repeating this and ensuring that it is resolved. Blood pressure was resolved after pain medication and no antihypertensive tensive medication was needed. Will discharge patient home at this time and he understands that he needs to follow-up with his primary doctor in the [facility].. 12/25 13:46 Order name: Basic Metabolic Panel; Complete Time: 15:27 3 12/25 13:46 Order name: CBC with Diff; Complete Time: 15:27 3 12/25 13:46 Order name: Troponin HS; Complete Time: 15:27 3 12/25 13:46 Order name: XRAY Chest (1 view); Complete Time: 15:02 3 12/25 13:46 Order name: CT Head Brain wo Cont; Complete Time: 15:02 3 12/25 13:46 Order name: EKG; Complete Time: 13:46 sp3 12/25 13:46 Order name: Cardiac monitoring; Complete Time: 13:52 sp3 12/25 13:46 Order name: EKG - Nurse/Tech; Complete Time: 14:43 sp3 12/25 13:46 Order name: IV Saline Lock; Complete Time: 14:43 sp3 12/25 13:46 Order name: Labs collected and sent; Complete Time: 14:43 sp3 12/25 13:46 Order name: O2 Sat Monitoring; Complete Time: 13:51 sp3 Administered Medications: 14:35 Drug: HYDROmorphone IVP 1 mg Route: IVP; Site: right antecubital; db 14:35 Drug: Ondansetron IVP 4 mg Route: IVP; Site: right antecubital; db Disposition Summary: 12/25/22 15:47 Discharge Ordered Location: Home sp3 Condition: Stable sp3 Diagnosis - Hypertensive urgency sp3 Followup: sp3 - With: Private Physician - When: Upon discharge from the Emergency Department - Reason: Continuance of care Discharge Instructions: - Discharge Summary Sheet sp3 - Hypertension, Adult sp3 Forms: - Medication Reconciliation Form sp3 - Thank You Letter sp3 - Antibiotic Education sp3 - Prescription Opioid Use sp3 - Patient Portal Instructions sp3 Signatures: Dispatcher [employer] Reyes Bunch MD MD sp3 Annika Separs, RN RN db Cristina Stephens RN RN cm10
[2022-12-25 17:02] VITALS: TEMP 98.4
[2022-12-25 17:04] VITALS: O2SAT 99
[2022-12-25 17:07] VITALS: BP 135/75
== END 2022-12-25 15:58 | disposition home or self-care (01) ==
LOC: ER 13:05
DX: I16.0 Hypertensive urgency (principal); I10 Essential (primary) hypertension
CPT/HCPCS: 85025; 80048; 36415; 84484; 70450; 71045; J1170; J2405; 93005

== ENCOUNTER 2023-01-05 07:09 | Emergency (ER) | payer OTHER ==
--- OUTSIDE RECORDS SUMMARY | 2023-01-05 07:13 | XMS REPORT | Continuity of Care Document ---
:1980 Author Organization [facility] t Address [address] [place] [address] Care Team Providers Name Role Phone Pcp, Patient Does Not Have A Primary Care Physician [id number] GRISEL GILLETTE Attending Clinician Unavailable Grisel Camara Attending Clinician Pob, Adc Lab Main Attending Clinician Unavailable 2, Adc Lab Attending Clinician Unavailable Doctor Unassigned, [place] Attending Clinician Unavailable PAULA GONSALES Attending Clinician Unavailable Paula Gonsales DO Attending Clinician Carol FIELD, Mariza Arias Attending Clinician Unavailable Payers Payer Name Policy Type Policy Number Effective Date Expiration Date S elisabeth bitFlyer [id number] 2021 NON-CONTRACT 00:00:00 GENERIC Problems Condition Condition Condition Status Onset Resolution Last Treating Co mments Source Name Details Category Date Date Treatment Clinician Date No known No known Disease Unive rs active active ity of problems problems [facility] Allergies, Adverse Reactions, Alerts Allergy Allergy Status Severity Reaction(s) Onset Inactive Treating Comm ents Source Name Type Date Date Clinician NO KNOWN Drug Active Univers ALLERGIE Class ity of S [facility] Social History Social Habit Start Date Stop Date Quantity Comments Source Gender identity Universit y [facility] to 2022-06-17 2022-06-27 Not sure [facility]-CoV-2 (event) 00:00:00 14:15:00 [facility] Alcohol intake 2022-06-27 2022-06-27 Lifetime University of 00:00:00 00:00:00 non-drinker [facility] (finding) Branch History of Social 2022-06-27 2022-06-27 Univers ity of function 00:00:00 00:00:00 [facility] Sex Assigned At [birth year] Universit y of 00:00:00 00:00:00 [facility] Smoking Status Start Date Stop Date Source Tobacco smoking consumption Univ ersity of [facility] unknown Branch Medications Ordered Filled Start Stop Current Ordering Indication Dosage Frequency Signature Comments Components Source Medication Medication Date Date Medication? Clinician (SIG) Name Name carvediloL 0 Yes [id number] 6.25mg Take 1 Univers (COREG) 8-18 tablet by ity of 6.25 mg 00:00: mouth in [place] tablet 00 the Medical morning Branch and 1 tablet in the evening. Take with meals. amLODIPine 2022-0 Yes [id number] 10mg Take 1 Univers (NORVASC) 8-11 tablet by ity o f 10 mg 00:00: mouth in [place] tablet 00 the Medical morning. Branch hydroCHLORO 2022-0 Yes [id number] 25mg Take 1 Univers thiazide 25 8-11 tablet by [place] Branch amLODIPine 2022-0 Yes [id number] 10mg Take 1 Univers (NORVASC) 8-11 tablet by ity o f 10 mg 00:00: mouth in [place] tablet 00 the Medical morning. Branch hydroCHLORO 2022-0 Yes [id number] 25mg Take 1 Univers thiazide 25 8-11 tablet by [place] of mg [place] the [place] Branch amLODIPine 2022-0 Yes [id number] 10mg Take 1 Univers (NORVASC) 8-11 tablet by ity o f 10 mg 00:00: mouth in [place] tablet 00 the Medical morning. Branch hydroCHLORO 3-0 Yes [id number] 25mg Take 1 Univers thiazide 25 8-11 tablet by [place]y of mg [place] the [place] Branch amLODIPine 2022-0 Yes [id number] 10mg Take 1 Univers (NORVASC) 8-11 tablet by ity o f 10 mg 00:00: mouth in [place] tablet 00 the Medical morning. Branch hydroCHLORO 2022-0 Yes [id number] 25mg Take 1 Univers thiazide 25 8-11 tablet by [place]y of mg [place] the [place] Branch amLODIPine 2023-0 Yes [id number] 10mg Take 1 Univers (NORVASC) 8-11 tablet by ity o f 10 mg 00:00: mouth in [place] tablet 00 the Medical morning. Branch hydroCHLORO 2023-0 Yes [id number] 25mg Take 1 Univers thiazide 25 8-11 tablet by [place]y of mg tablet [place] the [place] Branch amLODIPine 2023-0 Yes [id number] 5mg Take 1 U nivers (NORVASC) 5 2-09 tablet by [place]y of mg tablet [place] the [place] Branch amLODIPine 2023-0 Yes [id number] 5mg Take 1 U nivers (NORVASC) 5 2-09 tablet by [place]y of mg tablet [place] the [place] Branch amLODIPine 2023-0 Yes [id number] 5mg Take 1 U nivers (NORVASC) 5 2-09 tablet by [place]y of mg tablet [place] the [place] Branch amLODIPine 2023-0 Yes [id number] 5mg Take 1 U nivers (NORVASC) 5 2-09 tablet by [place] of mg tablet [place] the [place] Branch amLODIPine 2023-0 Yes [id number] 5mg Take 1 U nivers (NORVASC) 5 2-09 tablet by [place] of mg [place] the [place] Branch amLODIPine 2023-0 2023- No [id number] 5mg Take 1 Univers (NORVASC) 5 2- 08-11 tablet by it y of mg tablet 00:00: 00:00 mouth in [place] 00 :00 the Medical morning. Branch amLODIPine 2023-0 2023- No [id number] 5mg Take 1 Univers (NORVASC) 5 2- 08-11 tablet by it y of mg tablet 00:00: 00:00 mouth in [place] 00 :00 the Medical morning. Branch amLODIPine 2023-0 2023- No 5mg 5 mg, Unive rs (NORVASC) -02 16-10 Oral, ity of tablet 5 mg 13:00: 12[place]20 [place], On Medical Tue Branch 05/28/22 at 0700, Routine amLODIPine 3-0 Yes [id number] 5mg Take 1 U nivers (NORVASC) 5 1-10 tablet by [place] of mg [place] the [place]. Branch amLODIPine 3-0 Yes [id number] 5mg Take 1 U nivers (NORVASC) 5 1-10 tablet by [place] of mg tablet [place] the [place] Branch amLODIPine 3-0 Yes [id number] 5mg Take 1 U nivers (NORVASC) 5 1-10 tablet by [place] of mg [place] Branch amLODIPine 3-0 2023- No [id number] 5mg Take 1 Univers (NORVASC) 5 -02 17- tablet by it y of mg tablet 00:00: 00:00 mouth in [place] 00 :00 the Medical morning. Branch amLODIPine 3-0 2023- No [id number] 5mg Take 1 Univers (NORVASC) 5 -02 17- tablet by it y of mg tablet 00:00: 00:00 mouth in [place] 00 :00 the Medical morning. Branch amLODIPine 3-0 2023- No [id number] 5mg Take 1 Univers (NORVASC) 5 -02 17- tablet by it y of mg tablet 00:00: 00:00 mouth in [place] 00 :00 the Medical morning. Branch Vital Signs Vital Name Observation Time Observation Value Comments Source Systolic blood 2022-12-27 21:21:00 141 mm[Hg] Univer sity of pressure [facility] Diastolic blood 2022-12-27 21:21:00 91 mm[Hg] Unive rsity [facility] Heart rate 2022-12-27 21:19:00 87 /min [facility] Body temperature 2022-12-27 21:19:00 36.44 Zenaida [facility] Respiratory rate 2022-12-27 21:19:00 16 /min [facility] Body weight 2022-12-27 21:19:00 176.767 kg [facility] [place] [facility] BMI 2022-12-27 21:19:00 62.90 kg/m2 [facility] Oxygen saturation in 2022-12-27 21:19:00 97 /min University of Arterial blood by [place] [employer] Pulse oximetry Branch Systolic blood 2022-06-27 20:36:00 130 mm[Hg] Univer sity of pressure [facility] Diastolic blood 2022-06-27 20:36:00 78 mm[Hg] Unive rsity of pressure [facility] Heart rate 2022-06-27 20:36:00 82 /min [facility] Body height 2022-06-27 20:36:00 167.6 cm [facility] Body weight 2022-06-27 20:36:00 175.542 kg [facility] BMI 2022-06-27 20:36:00 62.46 kg/m2 [facility] Oxygen saturation in 2022-06-27 20:36:00 97 /min University of Arterial blood by [place] [employer] alexa Pulse oximetry Branch Systolic blood 2022-05-28 12:10:00 166 mm[Hg] Univer sity of pressure [facility] Diastolic blood 2022-05-28 12:10:00 104 mm[Hg] Unive rsity of pressure [facility] Heart rate 2022-05-28 12:10:00 67 /min [facility] Body temperature 2022-05-28 12:10:00 36.5 Zenaida [facility] [place] [facility] Respiratory rate 2022-05-28 12:10:00 22 /min [facility] [place] [facility] Body height 2022-05-28 12:10:00 167.6 cm [facility] Body weight 2022-05-28 12:10:00 174.635 kg [facility] [place] [facility] BMI 2022-05-28 12:10:00 62.14 kg/m2 [facility] Oxygen saturation in 2022-05-28 12:10:00 99 /min University of Arterial blood by [employer] alexa Pulse oximetry Branch Procedures Procedure Date / Time Performing Clinician Source Performed FREE T4 2022-12-27 22:07:00 Nain Grisel [facility] THYROID STIMULATING 2022-12-27 22:07:00 Grisel Gillette [facility] HORMONE [facility] COMP. METABOLIC PANEL 2022-12-27 22:07:00 Grisel Gillette [facility] ([id number]) Medical [place] CBC WITH DIFF 2022-12-27 22:07:00 Nain Grisel [facility] GLYCOSYLATED HEMOGLOBIN 2022-12-27 22:07:00 Nain Grisel [facility] (A1C) [facility] URINALYSIS 2022-12-27 22:07:00 [place] [facility] ASSIGNMENT OF BENEFITS 2022-06-27 20:16:49 Doctor Unassigned, No [facility] NOTICE OF PRIVACY 2022-05-28 12:04:25 Doctor Unassigned, No [facility] PRACTICES Name Medical Branch CONSENT/REFUSAL FOR 2022-05-28 12:00:20 Doctor Unassigned, No [facility] DIAGNOSIS AND TREATMENT [facility] Encounters Start End Encounter Admission Attending Care Care Encounter Source Date/Time Date/Time Type Type Clinicians Facility Department ID 2023-01-10 2023-01-10 Outpatient R NAIN [facility] [id number] Univers 13:00:00 13:00:[address] [facility] 2023-01-03 2023-01-03 Telephone Nain [facility] [id number] Univers 00:00:00 00:00:00 Grisel PASCUAL 350.1.13.10 i ty [facility] [place] [phone] Ar dical NAL 044 [facility] 2023-01-02 2023-01-02 Water Inspector Gabriel Rodriguez Lab Main [facility] 1.2.8 [id number] [id number] Univers 09:15:00 09:30:00 Visit Grisel Gillette 350.1.13.10 ity [facility] [place] [phone] Ar dical NAL 353 [facility] 2023-01-02 2023-01-02 [id number] Univers 09:15:00 09:15:[address] [facility] 2022-12-27 2022-12-27 Water Inspector Jennifer, Adc Lab Main [facility] 1.2.8 [id number] [id number] Univers 17:00:00 17:15:00 Visit Grisel Gillette ANKUR 350.1.13.10 ity [facility] [place] [id number] Ar dical [facility] 353 [facility] 2022-12-27 2022-12-27 [facility] [id number] Univers 16:00:00 16:31:[address] [facility] 2022-12-27 2022-12-27 [facility] [id number] Univers 16:00:00 16:31:18 Visit Grisel PASCUAL 350.1.13.10 i ty of [place] 4[place] [id number] Ar dical NAL 044 [facility] 2022-09-24 2022-09-24 [facility] [id number] Univers 15:00:00 15:00:[address] [facility] 2022-06-27 2022-06-27 Water Inspector 2, Adc Lab [facility] [id number] Univers 15:30:00 15:45:00 Visit Grisel Gillette ANKUR 350.1.13.10 ity of [place] [phone] Ar dical NAL [address] [place] [address] 2022-06-27 2022-06-27 [facility] [id number] Univers 14:30:00 15:17:[address] [facility] 2022-06-27 2022-06-27 Office [facility] [id number] Univers 14:30:00 15:17:17 Visit Grisel PASCUAL 350.1.13.10 i ty of [facility] [place] [id number] Ar dicca NAL 044 [facility] 2022-06-27 2022-06-27 Orders Doctor MIKAYLA 1.2.840.114 [id number] Univers 00:00:00 00:00:00 Only Unassigned, ALBERT 350.1.13.10 ity of [place] [facility] 4.2.7.2.686 [place] [id number] [facility] [address] [place] 2022-06-27 2022-06-27 [facility] 1.2.840.114 [id number] Univers 00:00:00 00:00:00 (Out) Grisel PASCUAL 350.1.13.10 i ty [place] [phone] [address] 2022-05-28 2022-05-28 Emergency X [facility] ERT [id number] Univers 06:16:00 06:27:00 [facility] 2022-05-28 2022-05-28 Emergency [facility] [id number] Univers 06:16:00 06:27:00 Paula PASCUAL 350.1.13.10 ity of [place] [facility] [id number] [facility] [address] [place] 2022-05-28 2022-05-28 Letter MIKAYLA [place] 1.2.840.114 [id number] Univers 00:00:00 00:00:00 (Out) Mariza PRICE 350.1.13.10 it y of [facility] 4.2.7.2.686 [place] [id number] [facility] 019 Branch 2006-01-21 2006-01-21 Outpatient [facility] [id number] Univers 00:00:00 14:20:11 9 [facility] Results Test Description Test Time Test Comments Results Result Comments Source GLYCOSYLATED HEMOGLOBIN (A1C) 2022-12-28 00:47:03 Test Item Value Reference Range Interpretation Comme nts HGB A1C (test code = 4548-4) 6.1 % 4.0-5.7 H CARLOS (test code = CARLOS) Reference RangesNormal: <5.7%Prediabetes: 5.7 - 6.4%Diabetes: > 6.5% Lab Interpretation (test code = Abnormal 15744-4) [facility]2022-12-28 00:47:03 Test Item Value Reference Range Interpretation Comments HGB A1C (test code = 6.1 % 4.0-5.7 H 4548-4) CARLOS (test code = CARLOS) Reference RangesNormal: <5.7%Prediabetes: 5.7 - 6.4%Diabetes: > 6.5% Lab Interpretation (test Abnormal code = 28269-0) [facility] [id number] 00:45:22 Test Item Value Reference Range Interpretation Comments TSH (test code = 5.01 See_Comment H [Automated message] [id number]) The system zerobound generated this result transmitted ref erence range: 0.45 - 4 .70 mIU/L. The refe rence range was not u sed to interpret this result as normal/abnor mal. Lab Interpretation (test Abnormal code = 94659-6) [facility] [id number] 00:45:22 Test Item Value Reference Range Interpretation Comments TSH (test code = 5.01 See_Comment H [Automated message] [id number]) The system zerobound generated this result transmitted ref erence range: 0.45 - 4 .70 mIU/L. The refe rence range was not u sed to interpret this result as normal/abnor mal. Lab Interpretation (test Abnormal code = 75163-8) [facility] [id number] 00:31:42 Test Item Value Reference Range Interpretation Comments FREE T4 (test code = 0.83 See_Comment [Autom ated message] [id number]) The system zerobound generated this result transmitted ref erence range: 0.78 - 2 .20 ng/dL:. The ref erence range was not u sed to interpret this result as normal/abnor mal. Lab Interpretation (test Normal code = 81686-7) [facility] [id number] 00:31:42 Test Item Value Reference Range Interpretation Comments FREE T4 (test code = 0.83 See_Comment [Autom ated message] [id number]) The system zerobound generated this result transmitted ref erence range: 0.78 - 2 .20 ng/dL:. The ref erence range was not u sed to interpret this result as normal/abnor mal. Lab Interpretation (test Normal code = 79215-4) [facility]. METABOLIC PANEL ([id number])2022-12-28 00:15:44 Test Item Value Reference Range Interpretation Comments NA (test code = 144 mmol/L 135-145 3776914590) K (test code = 4.9 mmol/L 3.5-5.0 5537010432) CL (test code = 101 mmol/L 98-108 7184498309) CO2 TOTAL (test code = 32 mmol/L 23-31 H 9795422566) AGAP (test code = 11 2-16 4952611731) BUN (test code = 14 mg/dL 7-23 1866570313) GLUCOSE (test code = 94 mg/dL 70-110 2554274063) CREATININE (test code = 1.16 mg/dL 0.60-1.25 7112623744) TOTAL BILI (test code = 0.4 mg/dL 0.1-1.5 0434422551) CALCIUM (test code = 9.4 mg/dL 8.6-10.6 3634973739) T PROTEIN (test code = 7.7 g/dL 6.3-8.2 8945000676) ALBUMIN (test code = 4.5 g/dL 3.5-5.0 6829976231) ALK PHOS (test code = 105 U/L 34-122 9283173260) ALTv (test code = 44 U/L 5-50 1742-6) AST(SGOT) (test code = 48 U/L 13-40 H 9213405986) eGFR (test code = 69.0 mL/min/1.73m2 7807359297) CARLOS (test code = CARLOS) Association of Glomerular Filtration Rate (GFR) and Staging of Kidney Disease* + --+ --+ ------+| GFR (mL/min/1.73 m2) ?| With Kidney Damage ?| ?Without Kidney Damage+ --------+ --------+ +| ?>90 ?| ?Stage one ?| ? Normal ?+ ---+ ---+ -------+| ?60-89 ?| ?Stage two ?| ? Decreased GFR ? + --+ --+ ------+| ?30-59 ?| ?Stage three ?| ? Stage three ? + --+ --+ ------+| ?15-29 ?| ?Stage four ? | ? Stage four ?+ ---+ ---+ -------+| ?<15 (or dialysis) ? ?| ?Stage five ? | ? Stage five ?+ ---+ ---+ -------+ *Each stage assumes the associated GFR level has been in effect for at least three months. ?Stages 1 to 5, with or without kidney disease, indicate chronic kidney disease. Notes: Determination of stages one and two (with eGFR >59mL/min/1.73 m2) requires estimation of kidney damage for at least three months as defined by structural or functional abnormalities of the kidney, manifested by either:Pathological abnormalities or Markers of kidney damage (including abnormalities in the composition of the blood or urine or abnormalities in imaging tests). Lab Interpretation Abnormal (test code = 77253-8) [facility]. METABOLIC PANEL ([id number])2022-12-28 00:15:44 Test Item Value Reference Range Interpretation Comments NA (test code = 144 mmol/L 135-145 8870211128) K (test code = 4.9 mmol/L 3.5-5.0 0277517472) CL (test code = 101 mmol/L 98-108 2683568648) CO2 TOTAL (test code = 32 mmol/L 23-31 H 5821193759) AGAP (test code = 11 2-16 4557748020) BUN (test code = 14 mg/dL 7-23 3606518882) GLUCOSE (test code = 94 mg/dL 70-110 3643264616) CREATININE (test code = 1.16 mg/dL 0.60-1.25 8717486147) TOTAL BILI (test code = 0.4 mg/dL 0.1-1.8 0883953864) CALCIUM (test code = 9.4 mg/dL 8.6-10.6 7759827023) T PROTEIN (test code = 7.7 g/dL 6.3-8.2 5321889418) ALBUMIN (test code = 4.5 g/dL 3.5-5.0 8304534757) ALK PHOS (test code = 105 U/L 34-122 9845801025) ALTv (test code = 44 U/L 5-50 2-6) AST(SGOT) (test code = 48 U/L 13-40 H 9637713817) eGFR (test code = 69.0 mL/min/1.73m2 6131452365) CARLOS (test code = CARLOS) Association of Glomerular Filtration Rate (GFR) and Staging of Kidney Disease* + --+ --+ ------+| GFR (mL/min/1.73 m2) ?| With Kidney Damage ?| ?Without Kidney Damage+ --------+ --------+ +| ?>90 ?| ?Stage one ?| ? Normal ?+ ---+ ---+ -------+| ?60-89 ?| ?Stage two ?| ? Decreased GFR ? + --+ --+ ------+| ?30-59 ?| ?Stage three ?| ? Stage three ? + --+ --+ ------+| ?15-29 ?| ?Stage four ? | ? Stage four ?+ ---+ ---+ -------+| ?<15 (or dialysis) ? ?| ?Stage five ? | ? Stage five ?+ ---+ ---+ -------+ *Each stage assumes the associated GFR level has been in effect for at least three months. ?Stages 1 to 5, with or without kidney disease, indicate chronic kidney disease. Notes: Determination of stages one and two (with eGFR >59mL/min/1.73 m2) requires estimation of kidney damage for at least three months as defined by structural or functional abnormalities of the kidney, manifested by either:Pathological abnormalities or Markers of kidney damage (including abnormalities in the composition of the blood or urine or abnormalities in imaging tests). Lab Interpretation Abnormal (test code = 54783-1) [facility] WITH [id number] 22:30:50 Test Item Value Reference Range Interpretation Comments WBC (test code = 8.71 See_Comment [Automated message] 2390-2) The system zerobound generated this result transmitted ref erence range: 4.20 - 1 0.70 10*3/?L. The re ference range was not u sed to interpret this result as normal/abnor mal. RBC (test code = 4.61 See_Comment [Automated message] 929-8) The system zerobound generated this result transmitted ref erence range: 4.26 - 5 .52 10*6/?L. The re ference range was not u sed to interpret this result as normal/abnor mal. HGB (test code = 13.8 g/dL 12.2-16.4 718-7) HCT (test code = 43.0 % 38.4-49.3 4544-3) MCV (test code = 93.3 fL 81.7-95.6 787-2) MCH (test code = 29.9 pg 26.1-32.7 785-6) MCHC (test code = 32.1 g/dL 31.2-35.0 786-4) RDW-SD (test code 42.8 fL 38.5-51.6 = 73861-1) RDW-CV (test code 12.4 % 12.1-15.4 = 788-0) PLT (test code = 254 See_Comment [Automated message] 357-3) The system zerobound generated this result transmitted ref erence range: 150 - 32 8 10*3/?L. The re ference range was not u sed to interpret this result as normal/abnor mal. MPV (test code = 11.5 fL 9.8-13.0 30265-2) NRBC/100 WBC (test 0.0 See_Comment [Automat ed message] code = 0568088975) The syste m which generated this result transmitted ref erence range: 0.0 - 10 .0 /100 WBCs. The refer ence range was not u sed to interpret this result as normal/abnor mal. NRBC x10^3 (test See_Comment [Automated message] code = 4732924527) The syste m which generated this result transmitted ref erence range: 10*3/?L. The reference range was not used to interpr et this result as normal/abnormal . GRAN MAT (NEUT) % 58.7 % (test code = 770-8) IMM GRAN % (test 0.50 % code = 3514785606) LYMPH % (test code 27.9 % = 736-9) MONO % (test code 10.0 % = 5905-5) EOS % (test code = 2.2 % 713-8) BASO % (test code 0.7 % = 706-2) GRAN MAT 5.12 10*3/uL 1.99-6.95 x10^3(ANC) (test code = 5061961733) IMM GRAN x10^3 0.04 10*3/uL 0.00-0.06 (test code = 3700284115) LYMPH x10^3 (test 2.43 10*3/uL 1.09-3.23 code = 731-0) MONO x10^3 (test 0.87 10*3/uL 0.36-1.02 code = 742-7) EOS x10^3 (test 0.19 10*3/uL 0.06-0.53 code = 711-2) BASO x10^3 (test 0.06 10*3/uL 0.01-0.09 code = 704-7) [facility] WITH [id number] 22:30:50 Test Item Value Reference Range Interpretation Comments WBC (test code = 8.71 See_Comment [Automated message] 5102-2) The system zerobound generated this result transmitted ref erence range: 4.20 - 1 0.70 10*3/?L. The re ference range was not u sed to interpret this result as normal/abnor mal. RBC (test code = 4.61 See_Comment [Automated message] 619-8) The system zerobound generated this result transmitted ref erence range: 4.26 - 5 .52 10*6/?L. The re ference range was not u sed to interpret this result as normal/abnor mal. HGB (test code = 13.8 g/dL 12.2-16.4 658-7) HCT (test code = 43.0 % 38.4-49.3 4544-3) MCV (test code = 93.3 fL 81.7-95.6 787-2) MCH (test code = 29.9 pg 26.1-32.7 785-6) MCHC (test code = 32.1 g/dL 31.2-35.0 786-4) RDW-SD (test code 42.8 fL 38.5-51.6 = 50412-7) RDW-CV (test code 12.4 % 12.1-15.4 = 788-0) PLT (test code = 254 See_Comment [Automated message] 777-3) The system whic h generated this result transmitted ref erence range: 150 - 32 8 10*3/?L. The re ference range was not u sed to interpret this result as normal/abnor mal. MPV (test code = 11.5 fL 9.8-13.0 41738-7) NRBC/100 WBC (test 0.0 See_Comment [Automat ed message] code = 1083922411) The syste m which generated this result transmitted ref erence range: 0.0 - 10 .0 /100 WBCs. The refer ence range was not u sed to interpret this result as normal/abnor mal. NRBC x10^3 (test See_Comment [Automated message] code = 5650985863) The syste m which generated this result transmitted ref erence range: 10*3/?L. The reference range was not used to interpr et this result as normal/abnormal . GRAN MAT (NEUT) % 58.7 % (test code = 770-8) IMM GRAN % (test 0.50 % code = 1123633967) LYMPH % (test code 27.9 % = 736-9) MONO % (test code 10.0 % = 5905-5) EOS % (test code = 2.2 % 713-8) BASO % (test code 0.7 % = 706-2) GRAN MAT 5.12 10*3/uL 1.99-6.95 x10^3(ANC) (test code = 3554460223) IMM GRAN x10^3 0.04 10*3/uL 0.00-0.06 (test code = 5313400523) LYMPH x10^3 (test 2.43 10*3/uL 1.09-3.23 code = 731-0) MONO x10^3 (test 0.87 10*3/uL 0.36-1.02 code = 742-7) EOS x10^3 (test 0.19 10*3/uL 0.06-0.53 code = 711-2) BASO x10^3 (test 0.06 10*3/uL 0.01-0.09 code = 704-7) [facility] Notes Date/Time Note Provider Source 2023-01-03 [facility] 12:57:43-00:00 Spoke with patient He denies any chest pain, weakness, shortness of breath Given ER warnings to go if he does experience th consuelo symptoms Will start Coreg twice a day To continue other medications Keep BP log and keep follow up to review Patient verbalizes understanding 2023-01-03 Formatting of this note might be differe nt from the original. Zunilda Bass [facility] 12:46:40-00:00 Patient states he checked hi s blood pressure 3 times. It was 169/105, 179/115 and the last time at 1244 pm it was 144/91. He is feeling dizzy and light headed. Nurse notified. Electronically signed by Zunilda Bass at 0 01/03/2023 12:50 PM CDT 2023-01-02 Formatting of this note is different from the or iginal. [facility] 09:15:00-00:00 Images from the original note were not included. Per pt he is here to complet e orders by Grisel Glilette FNP .Efren Liriano 01/02/2023 9:22 AM Venipuncture collection perf ormed by clean technique on the left anticubitus. Total of 2 attempts were made. Slight pressure and a bandage/dressing were applied to the site(s). The patient experienced n o complications. The followi ng specimens were processed according to instructions and sent to [facility] laboratories per lab order on 01/02/2023 : LT BLUE SST 1 RED LAV PPT DK GREEN (LiHep) DK GREEN (SodH) HERRERA DK BLUE (K2) DK BLUE (S) ACD Blood Culture NIPT/NTD Electronically signed by Efren Liriano at 9:33 AM CDT 2022-12-27 Formatting of this note is different from the or iginal. [facility] 17:00:00-00:00 Images from the original note were not included. Pt will be returning for his Lipid Blood Draw. He would like to continue with all other labs. Efren Liriano 12/27/2022 4:56 PM Venipuncture collection perf ormed by clean technique on the right anticubitus. Total of 2 attempts were made (Efren 1-no collection )(Shelly 2-blood draw collected). Slight pressure and a bandage/dres sing were applied to the sit e(s). The patient experienced no complications. The following specimens were processed according to instructions and sent to [facility] laboratories per lab order on 12/27/2022 : LT BLUE SST 1 RED LAV 2 PPT DK GREEN (LiHep) DK GREEN (SodH) HERRERA DK BLUE (K2) DK BLUE (S) ACD Blood Culture NIPT/NTD Patient has been identified by and name and was provided with cup, antiseptic towelette, and clean catch instructions. 1 urine specimen(s) sent. Unpreserved 1 Urine Culture Aptima tube Other urine Electronically signed by Efren Liriano at 5:12 PM CDT"
--- NOTE | 2023-01-05 07:32 | EDPHYS ---
Physician Documentation [facility] Name: Gurpreet Davis Age: 42 yrs Sex: Male : 1980 Arrival Date: 01/05/2023 Time: 07:09 Bed 6 Private MD: ED Physician Reyes Fernandez HPI: 01/05 07:29 This 42 yrs old Black Male presents to ER via Ambulatory with complaints of High Blood sp3 Pressure. 07:29 42-year-old male with history of hypertension presents to the ED with chief complaint sp3 high-pressure bleeding this morning. Patient is known to me as I have seen him before with similar symptoms. Last time his creatinine was 1.3 and he states he followed up with his PCP who altered his medications and also told he was prediabetic. His creatinine had returned to normal values. Today he currently has no complaints and denies headache, neck pain, chest pain, shortness of breath, abdominal pain, syncope, near syncope, weakness, any other signs or symptoms on ROS at this time. He came in solely for the hyper pressure reading.. Historical: - Allergies: 07:26 No Known Allergies; hb - Home Meds: 07:26 unknown HTN med [Active]; hb - PMHx: 07:26 Hypertensive disorder; hb - PSHx: 07:26 None; hb - Immunization history:: Adult Immunizations up to date. - Social history:: Smoking status: Patient denies any tobacco usage or history of. ROS: 07:31 Constitutional: Negative for fever, chills, and weight loss, Eyes: Negative for injury, sp3 pain, redness, and discharge, ENT: Negative for injury, pain, and discharge, Neck: Negative for injury, pain, and swelling, Cardiovascular: Negative for chest pain, palpitations, and edema, Respiratory: Negative for shortness of breath, cough, wheezing, and pleuritic chest pain, Abdomen/GI: Negative for abdominal pain, nausea, vomiting, diarrhea, and constipation, Back: Negative for injury and pain, MS/Extremity: Negative for injury and deformity, Skin: Negative for injury, rash, and discoloration, Neuro: Negative for headache, weakness, numbness, tingling, and seizure, Psych: Negative for depression, anxiety, suicide ideation, homicidal ideation, and hallucinations, Allergy/Immunology: Negative for hives, rash, and allergies, Endocrine: Negative for neck swelling, polydipsia, polyuria, polyphagia, and marked weight changes, Hematologic/Lymphatic: Negative for swollen nodes, abnormal bleeding, and unusual bruising. 07:31 All other systems are negative. Exam: 07:31 Constitutional: This is a well developed, well nourished patient who is awake, alert, sp3 and in no acute distress. Head/Face: Normocephalic, atraumatic. Eyes: Pupils equal round and reactive to light, extra-ocular motions intact. Lids and lashes normal. Conjunctiva and sclera are non-icteric and not injected. Cornea within normal limits. Periorbital areas with no swelling, redness, or edema. ENT: Nares patent. No nasal discharge, no septal abnormalities noted. External auditory canals are clear. Oropharynx with no redness, swelling, or masses, exudates, or evidence of obstruction, uvula midline. Mucous membranes moist. Neck: Trachea midline, no thyromegaly or masses palpated, and no cervical lymphadenopathy. Supple, full range of motion without nuchal rigidity, or vertebral point tenderness. No Meningismus. Chest/axilla: Normal chest wall appearance and motion. Nontender with no deformity. No lesions are appreciated. Cardiovascular: Regular rate and rhythm with a normal S1 and S2. No gallops, murmurs, or rubs. Normal PMI, no JVD. No pulse deficits. Respiratory: Lungs have equal breath sounds bilaterally, clear to auscultation and percussion. No rales, rhonchi or wheezes noted. No increased work of breathing, no retractions or nasal flaring. Abdomen/GI: Soft, non-tender, with normal bowel sounds. No distension or tympany. No guarding or rebound. No evidence of tenderness throughout. Back: No spinal tenderness. No costovertebral tenderness. Full range of motion. Skin: Warm, dry with normal turgor. Normal color with no rashes, no lesions, and no evidence of cellulitis. MS/ Extremity: Pulses equal, no cyanosis. Neurovascular intact. Full, normal range of motion. Neuro: Awake and alert, GCS 15, oriented to person, place, time, and situation. Cranial nerves II-XII grossly intact. Motor strength 5/5 in all extremities. Sensory grossly intact. Cerebellar exam normal. Normal gait. Psych: Awake, alert, with orientation to person, place and time. Behavior, mood, and affect are within normal limits. Vital Signs: 07:25 BP 131 / 84; Pulse 66; Resp 18; Temp 98.2(O); Pulse Ox 100% on R/A; Weight 158.76 kg; hb Height 5 ft. 8 in. ; Pain 0/10; 07:40 BP 132 / 81; Pulse 72; Resp 18; Pulse Ox 99% ; ko1 07:25 Body Mass Index 53.22 (158.76 kg, 172.72 cm) hb 07:25 Pain Scale: Adult hb MDM: 07:29 Patient medically screened. sp3 07:31 Data reviewed: vital signs, nurses notes, old medical records. ED course: Multiple sp3 readings of blood pressure normal here in the ED. He has no symptoms and does not want any further work-up. I have counseled him extensively on blood pressure readings and use of the appropriate cuff. He will follow back up with his PCP at the scheduled date and will return here for any further symptoms or concerns or significant elevated blood pressure readings.. Administered Medications: No medications were administered Disposition Summary: 01/05/23 07:32 Discharge Ordered Location: Home sp3 Condition: Stable sp3 Diagnosis - Hypertension sp3 Followup: sp3 - With: Private Physician - When: Upon discharge from the Emergency Department - Reason: Continuance of care Discharge Instructions: - Discharge Summary Sheet sp3 - Hypertension, Adult sp3 Forms: - Medication Reconciliation Form sp3 - Thank You Letter sp3 - Antibiotic Education sp3 - Prescription Opioid Use sp3 - Patient Portal Instructions sp3 - Leadership Thank You Letter sp3 Signatures: nIgris Parish, RN RN Reyes Fernandez MD MD sp3
--- NOTE | 2023-01-05 07:32 | ER ---
Nurse's Notes [facility] Name: Gurpreet Davis Age: 42 yrs Sex: Male : 1980 Arrival Date: 01/05/2023 Time: 07:09 Bed 6 Private MD: Diagnosis: Hypertension Presentation: 01/05 07:25 Chief complaint: BP 175-115 upon walking today, took unknown blood pressure med at hb 0500. Denies headache/dizziness/chest pain. Coronavirus screen: At this time, the client does not indicate any symptoms associated with coronavirus-19. Ebola Screen: No symptoms or risks identified at this time. Initial Sepsis Screen: Does the patient meet any 2 criteria? No. Patient's initial sepsis screen is negative. Does the patient have a suspected source of infection? No. Patient's initial sepsis screen is negative. Risk Assessment: Do you want to hurt yourself or someone else? Patient reports no desire to harm self or others. Onset of symptoms was January 05, 2023. 07:25 Method Of Arrival: Ambulatory hb 07:25 Acuity: YURY 4 hb Historical: - Allergies: 07:26 No Known Allergies; hb - Home Meds: 07:26 unknown HTN med [Active]; hb - PMHx: 07:26 Hypertensive disorder; hb - PSHx: 07:26 None; hb - Immunization history:: Adult Immunizations up to date. - Social history:: Smoking status: Patient denies any tobacco usage or history of. Screenin:40 [facility] ED Fall Risk Assessment (Adult) History of falling in the last 3 months, ko1 including since admission No falls in past 3 months (0 pts) Confusion or Disorientation No (0 pts) Intoxicated or Sedated No (0 pts) Impaired Gait No (0 pts) Mobility Assist Device Used No (0 pt) Altered Elimination No (0 pt) Score/Fall Risk Level 0 - 2 = Low Risk Oriented to surroundings, Maintained a safe environment, Educated pt \T\ family on fall prevention, incl call for assistance when getting out of bed, Assessed \T\ reinforced patient's understanding of fall precautions, Provided non-skid footwear, Hourly rounding (assess needs \T\ fall precautionary measures) done, Used ambulatory aids as needed (educated on \T\ assisted with), Used gait belt as appropriate. Abuse screen: Denies threats or abuse. Denies injuries from another. Nutritional screening: No deficits noted. Tuberculosis screening: No symptoms or risk factors identified. Assessment: 07:35 General: Appears in no apparent distress. comfortable, Behavior is calm, cooperative, ko1 appropriate for age. Pain: Denies pain. Neuro: No deficits noted. Cardiovascular: No deficits noted. Respiratory: No deficits noted. GI: No deficits noted. : No deficits noted. EENT: No deficits noted. Derm: No deficits noted. Musculoskeletal: No deficits noted. Vital Signs: 07:25 BP 131 / 84; Pulse 66; Resp 18; Temp 98.2(O); Pulse Ox 100% on R/A; Weight 158.76 kg; hb Height 5 ft. 8 in. ; Pain 0/10; 07:40 BP 132 / 81; Pulse 72; Resp 18; Pulse Ox 99% ; ko1 07:25 Body Mass Index 53.22 (158.76 kg, 172.72 cm) hb 07:25 Pain Scale: Adult hb ED Course: 07:15 Patient arrived in ED. im 07:20 Reyes Fernandez MD is Attending Physician. sp3 07:26 Triage completed. hb 07:26 Arm band placed on. hb 07:40 Rosetta Pierce, RN is Primary Nurse. ko1 07:40 Patient has correct armband on for positive identification. Bed in low position. Call ko1 light in reach. Provided Education on: NA. Pulse ox on. NIBP on. Door closed. Noise minimized. 07:40 No provider procedures requiring assistance completed. Patient did not have IV access ko1 during this emergency room visit. Administered Medications: No medications were administered Medication: 07:42 VIS not applicable for this client. ko1 Outcome: 07:32 Discharge ordered by . sp3 07:46 Patient left the ED. ko1 Signatures: Ingris Parish RN RN Reyes Fernandez MD MD sp3 Rosetta Pierce, RN RN ko1 Louann Andre im
[2023-01-05 07:50] VITALS: TEMP 98.2
[2023-01-05 07:52] VITALS: BP 132/81; O2SAT 99
== END 2023-01-05 07:46 | disposition home or self-care (01) ==
LOC: ER 07:09
DX: I10 Essential (primary) hypertension (principal)
CPT/HCPCS: 99282

== ENCOUNTER 2023-03-07 22:44 | Emergency (ER) | payer OTHER ==
--- OUTSIDE RECORDS SUMMARY | 2023-03-07 22:47 | XMS REPORT | Continuity of Care Document ---
:1980 Author Organization [facility] t Address [address] [place] [id number] Care Team Providers Name Role Phone GRISEL GILLETTE Primary Care Physician Unavailable GRISEL GILLETTE Attending Clinician Unavailable MONIQUE GUILLEN Attending Clinician Unavailable 2, [facility] Attending Clinician Unavailable Grisel Camara Attending Clinician Doctor Unassigned, [place] Attending Clinician Unavailable Pob, [facility] Main Attending Clinician Unavailable PAULA GONSALES Attending Clinician Unavailable Paula Gonsales DO Attending Clinician Carol RN, Mariza Arias Attending Clinician Unavailable Payers Payer Name Policy Type Policy Number Effective Date Expiration Date S elisabeth YouScribe [id number] 2021 2023 NON-CONTRACT 00:00:00 00:00:00 GENERIC Problems Condition Condition Condition Status Onset Resolution Last Treating Co mments Source Name Details Category Date Date Treatment Clinician Date No known No known Disease Unive rs active active ity of problems problems [facility] Allergies, Adverse Reactions, Alerts Allergy Allergy Status Severity Reaction(s) Onset Inactive Treating Comm ents Source Name Type Date Date Clinician NO KNOWN Drug Active Univers ALLERGIE Class ity of [facility] Social History Social Habit Start Date Stop Date Quantity Comments Source Gender identity Universit y [facility] Sexual [facility] [place] Exposure to 2022-06-17 2022-06-27 Not sure [facility]-CoV-2 (event) 00:00:00 14:15:00 [facility] Alcohol intake 2022-06-27 2022-06-27 Lifetime University of 00:00:00 00:00:00 non-drinker [facility] (finding) Branch History of Social 2022-06-27 2022-06-27 Univers ity of function 00:00:00 00:00:00 [facility] Sex Assigned At [birth year] Universit y of 00:00:00 00:00:00 [facility] Smoking Status Start Date Stop Date Source Tobacco smoking consumption Univ ersity of [facility] unknown Branch Medications Ordered Filled Start Stop Current Ordering Indication Dosage Frequency Signature Comments Components Source Medication Medication Date Date Medication? Clinician (SIG) Name Name carvediloL 2022-05 Yes [id number] 25mg Take 1 U nivers (COREG) 25 0-09 tablet by ity of [place] Branch and 1 tablet in the evening. Take with meals. amLODIPine 2022-05 Yes [id number] 10mg Take 1 Univers (NORVASC) 0-09 tablet by ity o f 10 mg 00:00: mouth in [place] tablet 00 the Medical morning. Branch hydroCHLORO 2022-05 Yes [id number] 25mg Take 1 Univers thiazide 25 0-09 tablet by ity of mg [place] Branch carvediloL 2022-05 Yes [id number] 25mg Take 1 U nivers (COREG) 25 0-09 tablet by ity of mg tablet [place] the [place] Branch and 1 tablet in the evening. Take with meals. amLODIPine 2022-05 Yes [id number] 10mg Take 1 Univers (NORVASC) 0-09 tablet by ity o f 10 mg 00:00: mouth in [place] tablet 00 the Medical morning. Branch hydroCHLORO 2022-05 Yes [id number] 25mg Take 1 Univers thiazide 25 0-09 tablet by ity of mg tablet 00:[place]: [place] the Medical morning. Branch carvediloL 2022-05 Yes [id number] 25mg Take 1 U nivers (COREG) 25 0-09 tablet by ity of mg tablet 00:[place]: [place] the Medical morning Branch and 1 tablet in the evening. Take with meals. amLODIPine 2022-05 Yes [id number] 10mg Take 1 Univers (NORVASC) 0-09 tablet by ity o f 10 mg 00:00: mouth in [place] tablet 00 the Medical morning. Branch hydroCHLORO 2022-05 Yes [id number] 25mg Take 1 Univers thiazide 25 0-09 tablet by ity of mg tablet 00:00: [place] the Medical morning. Branch carvediloL 2022-05 Yes [id number] 25mg Take 1 U nivers (COREG) 25 0-09 tablet by ity of mg tablet 00[place]00: [place] the [place] morning Branch and 1 tablet in the evening. Take with meals. amLODIPine 2022-05 Yes [id number] 10mg Take 1 Univers (NORVASC) 0-09 tablet by ity o f 10 mg 00:00: mouth in [place] tablet 00 the morning. Branch hydroCHLORO 2022-05 Yes [id number] 25mg Take 1 Univers thiazide 25 0-09 tablet by ity of mg tablet 00:00: [place] the Medical morning. Branch carvediloL Yes [id number] 12.5mg Take 1 Univers (COREG) 8-25 tablet by ity of 12.5 mg 00:00: mouth in [place] tablet 00 the Medical morning Branch and 1 tablet in the evening. Take with meals. carvediloL Yes [id number] 12.5mg Take 1 Univers (COREG) 8-25 tablet by ity of 12.5 mg 00:00: mouth in [place] tablet 00 the Medical morning Branch and 1 tablet in the evening. Take with meals. carvediloL 0 Yes [id number] 12.5mg Take 1 Univers (COREG) 8-25 tablet by ity of 12.5 mg 00:00: mouth in [place] tablet 00 the Medical morning Branch and 1 tablet in the evening. Take with meals. carvediloL 0 Yes [id number] 12.5mg Take 1 Univers (COREG) 8-25 tablet by ity of 12.5 mg 00:00: mouth in [place] tablet 00 the Medical morning Branch and 1 tablet in the evening. Take with meals. carvediloL 2022- No [id number] 12.5mg Take 1 Univers (COREG) 8-25 10-09 tablet by ity of 12.5 mg 00:00: 00:00 mouth in [place] tablet 00 :00 the Medical morning Branch and 1 tablet in the evening. Take with meals. carvediloL 2022-0 3- No [id number] 12.5mg Take 1 Univers (COREG) 8-25 10-09 tablet by ity of 12.5 mg 00:00: 00:00 mouth in [place] tablet 00 :00 the Medical morning Branch and 1 tablet in the evening. Take with meals. carvediloL 2022-0 Yes [id number] 6.25mg Take 1 Univers (COREG) 8-18 tablet by ity of 6.25 mg 00:00: mouth in [place] tablet 00 the Medical morning Branch and 1 tablet in the evening. Take with meals. carvediloL 2022-0 3- No [id number] 6.25mg Take 1 Univers (COREG) 8-18 08-25 tablet by ity of 6.25 mg 00:00: 00:00 mouth in [place] tablet 00 :00 the Medical morning Branch and 1 tablet in the evening. Take with meals. carvediloL 2022-0 2022- No [id number] 6.25mg Take 1 Univers (COREG) 8-18 08-25 tablet by ity of 6.25 mg 00:00: 00:00 mouth in [place] tablet 00 :00 the Medical morning Branch and 1 tablet in the evening. Take with meals. amLODIPine 3-0 Yes [id number] 10mg Take 1 Univers (NORVASC) 8-11 tablet by ity o f 10 mg 00:00: mouth in [place] tablet 00 the Medical morning. Branch hydroCHLORO 2023-0 Yes [id number] 25mg Take 1 Univers thiazide 25 8-11 tablet by ity of mg tablet 00:00: [place] 00 the Medical morning. Branch amLODIPine 3-0 Yes [id number] 10mg Take 1 Univers (NORVASC) 8-11 tablet by ity o f 10 mg 00:00: mouth in [place] tablet 00 the Medical morning. Branch hydroCHLORO 2023-0 Yes [id number] 25mg Take 1 Univers thiazide 25 8-11 tablet by ity of mg tablet 00:00: [place] 00 the Medical morning. Branch amLODIPine 2023-0 Yes [id number] 10mg Take 1 Univers (NORVASC) 8-11 tablet by ity o f 10 mg 00:00: mouth in [place] tablet 00 the Medical morning. Branch hydroCHLORO 2023-0 Yes [id number] 25mg Take 1 Univers thiazide 25 8-11 tablet by ity of mg tablet 00:00: [place] 00 the Medical morning. Branch amLODIPine 2023-0 Yes [id number] 10mg Take 1 Univers (NORVASC) 8-11 tablet by ity o f 10 mg 00:00: mouth in [place] tablet 00 the Medical morning. Branch hydroCHLORO 2023-0 Yes [id number] 25mg Take 1 Univers thiazide 25 8-11 tablet by ity of mg tablet 00:00: [place] 00 the Medical morning. Branch amLODIPine 2023-0 Yes [id number] 10mg Take 1 Univers (NORVASC) 8-11 tablet by ity o f 10 mg 00:00: mouth in [place] tablet 00 the Medical morning. Branch hydroCHLORO 2023-0 Yes [id number] 25mg Take 1 Univers thiazide 25 8-11 tablet by ity of mg tablet 00:00: [place] 00 the Medical morning. Branch amLODIPine 2023-0 Yes [id number] 10mg Take 1 Univers (NORVASC) 8-11 tablet by ity o f 10 mg 00:00: mouth in [place] tablet 00 the Medical morning. Branch hydroCHLORO 2023-0 Yes [id number] 25mg Take 1 Univers thiazide 25 8-11 tablet by ity of mg tablet 00:00: [place] 00 the Medical morning. Branch amLODIPine 2023-0 Yes [id number] 10mg Take 1 Univers (NORVASC) 8-11 tablet by ity o f 10 mg 00:00: mouth in [place] tablet 00 the Medical morning. Branch hydroCHLORO 2023-0 Yes [id number] 25mg Take 1 Univers thiazide 25 8-11 tablet by ity of mg tablet 00:00: [place] 00 the Medical morning. Branch amLODIPine 2023-0 Yes [id number] 10mg Take 1 Univers (NORVASC) 8-11 tablet by ity o f 10 mg 00:00: mouth in [place] tablet 00 the Medical morning. Branch hydroCHLORO 2023-0 Yes [id number] 25mg Take 1 Univers thiazide 25 8-11 tablet by ity of mg tablet 00:00: [place] 00 the Medical morning. Branch amLODIPine 2023-0 Yes [id number] 10mg Take 1 Univers (NORVASC) 8-11 tablet by ity o f 10 mg 00:00: mouth in [place] tablet 00 the Medical morning. Branch hydroCHLORO 2023-0 Yes [id number] 25mg Take 1 Univers thiazide 25 8-11 tablet by ity of mg tablet 00:00: [place] 00 the Medical morning. Branch amLODIPine 2023-0 2023- No [id number] 10mg Take 1 Univers (NORVASC) 8-11 10-09 tablet by ity of 10 mg 00:00: 00:00 mouth in [place] tablet 00 :00 the Medical morning. Branch hydroCHLORO 2023-0 2023- No [id number] 25mg Take 1 Univers thiazide 25 8-11 10-09 tablet by it y of mg tablet 00:00: 00:00 mouth in [place] 00 :00 the Medical morning. Branch amLODIPine 2023-0 3- No [id number] 10mg Take 1 Univers (NORVASC) 8-11 10-09 tablet by ity of 10 mg 00:00: 00:00 mouth in [place] tablet 00 :00 the Medical morning. Branch hydroCHLORO 2023-0 3- No [id number] 25mg Take 1 Univers thiazide 25 8-11 10-09 tablet by it y of mg tablet 00:00: 00:00 mouth in [place] 00 :00 the Medical morning. Branch amLODIPine 2023-0 Yes [id number] 5mg Take 1 U nivers (NORVASC) 5 2-09 tablet by ity of mg tablet 00:[place] the Medical morning. Branch amLODIPine 2023-0 Yes [id number] 5mg Take 1 U nivers (NORVASC) 5 2-09 tablet by ity of mg tablet 00:00: [place] 00 the Medical morning. Branch amLODIPine 2023-0 Yes [id number] 5mg Take 1 U nivers (NORVASC) 5 2-09 tablet by [place]y of mg tablet 00:00: [place] 00 the Medical morning. Branch amLODIPine 2023-0 Yes [id number] 5mg Take 1 U nivers (NORVASC) 5 2-09 tablet by ity of mg tablet 00:00: [place] 00 the Medical morning. Branch amLODIPine 2023-0 Yes [id number] 5mg Take 1 U nivers (NORVASC) 5 2-09 tablet by ity of mg tablet 00:[place]: [place] the [place] morning. Branch amLODIPine 2023-0 2023- No [id number] 5mg Take 1 Univers (NORVASC) 5 2-01 24- tablet by it y of mg tablet 00:00: 00:00 mouth in [place] 00 :00 the Medical morning. Branch amLODIPine 2023-0 2023- No [id number] 5mg Take 1 Univers (NORVASC) 5 06-27- tablet by it y of mg tablet 00:00: 00:00 mouth in [place] 00 :00 the Medical morning. Branch amLODIPine 3-0 3- No 5mg 5 mg, Unive rs (NORVASC) 1-02 16-10 Oral, ity of tablet 5 mg 13:00: 12:20 [place] dose, On Medical Tue Branch 05/28/22 at 0700, Routine amLODIPine 3-0 Yes [id number] 5mg Take 1 U nivers (NORVASC) 5 1-10 tablet by ity of mg tablet 00:[place]: [place] the Medical morning. Branch amLODIPine 2023-0 Yes [id number] 5mg Take 1 U nivers (NORVASC) 5 1-10 tablet by [place]y of mg tablet 00:00: [place] 00 the Medical morning. Branch amLODIPine 2023-0 Yes [id number] 5mg Take 1 U nivers (NORVASC) 5 1-10 tablet by ity of mg tablet 00:[place]: [place] 00 the Medical morning. Branch amLODIPine 2023-0 2023- No [id number] 5mg Take 1 Univers (NORVASC) 5 -02 17-09 tablet by it y of mg tablet 00:00: 00:00 mouth in [place] 00 :00 the Medical morning. Branch amLODIPine 2023-0 2023- No [id number] 5mg Take 1 Univers (NORVASC) 5 -02 17-09 tablet by it y of mg tablet 00:00: 00:00 mouth in [place] 00 :00 the Medical morning. Branch amLODIPine 2023-0 2023- No [id number] 5mg Take 1 Univers (NORVASC) 5 05-28 tablet by it y of mg tablet 00:00: 00:00 mouth in [place] 00 :00 the Medical morning. Branch Vital Signs Vital Name Observation Time Observation Value Comments Source Systolic blood 2023-02-24 13:22:00 171 mm[Hg] Univer sity of pressure [facility] Diastolic blood 2023-02-24 13:22:00 82 mm[Hg] Unive rsity of [facility] Heart rate 2023-02-24 13:22:00 71 /min Universi ty of [facility] Body height 2023-02-24 13:22:00 167.6 cm Universi ty of [facility] Body weight 2023-02-24 13:22:00 177.13 kg Universi ty of [facility] BMI 2023-02-24 13:22:00 63.03 kg/m2 Universi ty of [facility] Oxygen saturation in 2023-02-24 13:20:00 97 /min University of Arterial blood by [place] [facility] Pulse oximetry Branch Systolic blood 2023-01-10 18:18:00 136 mm[Hg] Univer sity of pressure [facility] Diastolic blood 2023-01-10 18:18:00 72 mm[Hg] Unive rsity of [facility] Heart rate 2023-01-10 18:17:00 72 /min Universi ty of [facility] Body temperature 2023-01-10 18:17:00 36.11 Zenaida [facility] ersity [facility] Respiratory rate 2023-01-10 18:17:00 18 /min [facility] ersity [facility] Body height 2023-01-10 18:17:00 170.2 cm Universi ty of [facility] Body weight 2023-01-10 18:17:00 178.899 kg Universi ty of [facility] BMI 2023-01-10 18:17:00 61.77 kg/m2 Universi ty of [facility] Oxygen saturation in 2023-01-10 18:17:00 96 /min University of Arterial blood by [email or web address] [facility] Pulse oximetry Branch Systolic blood 2022-12-27 21:21:00 141 mm[Hg] Univer sity of pressure [facility] Diastolic blood 2022-12-27 21:21:00 91 mm[Hg] Unive rsity of [facility] [place] [facility] Heart rate 2022-12-27 21:19:00 87 /min Universi ty of [place] [facility] Body temperature 2022-12-27 21:19:00 36.44 Zenaida Univ ersity of [place] [facility] Respiratory rate 2022-12-27 21:19:00 16 /min Univ ersity of [place] [facility] Body weight 2022-12-27 21:19:00 176.767 kg Universi ty of [place] [facility] BMI 2022-12-27 21:19:00 62.90 kg/m2 Universi ty of [place] [facility] Oxygen saturation in 2022-12-27 21:19:00 97 /min University of Arterial blood by [facility] Pulse oximetry Branch Systolic blood 2022-06-27 20:36:00 130 mm[Hg] Univer sity of pressure [facility] [place] [facility] Diastolic blood 2022-06-27 20:36:00 78 mm[Hg] Unive rsity of pressure [facility] [place] [facility] Heart rate 2022-06-27 20:36:00 82 /min Universi ty of [place] [facility] Body height 2022-06-27 20:36:00 167.6 cm Universi ty of [place] [facility] Body weight 2022-06-27 20:36:00 175.542 kg [facility]i ty [facility] [place] [facility] BMI 2022-06-27 20:36:00 62.46 kg/m2 Universi ty [facility] [place] [facility] Oxygen saturation in 2022-06-27 20:36:00 97 /min University of Arterial blood by [facility] Pulse oximetry Branch Systolic blood 2022-05-28 12:10:00 166 mm[Hg] Univer sity of pressure [facility] [place] [facility] Diastolic blood 2022-05-28 12:10:00 104 mm[Hg] Unive rsity of pressure [facility] [place] [facility] Heart rate 2022-05-28 12:10:00 67 /min Universi ty of [place] [facility] Body temperature 2022-05-28 12:10:00 36.5 Zenaida Univ ersity of [place] [facility] Respiratory rate 2022-05-28 12:10:00 22 /min Univ ersity of [place] [facility] Body height 2022-05-28 12:10:00 167.6 cm Universi ty of [place] [facility] Body weight 2022-05-28 12:10:00 174.635 kg [facility] BMI 2022-05-28 12:10:00 62.14 kg/m2 [facility] Oxygen saturation in 2022-05-28 12:10:00 99 /min University Arterial blood by [facility] Pulse oximetry Branch Procedures Procedure Date / Time Performing Clinician Source Performed PATIENT QUESTIONNAIRE 2023-02-18 05:01:00 Doctor Unassigned, No [facility] FREE T4 2022-12-27 22:07:00 [facility] THYROID STIMULATING 2022-12-27 22:07:00 Grisel Gillette [facility] COMP. METABOLIC PANEL 2022-12-27 22:07:00 Grisel Gillette [facility] ([id number]) [facility] CBC WITH DIFF 2022-12-27 22:07:00 [facility] GLYCOSYLATED HEMOGLOBIN 2022-12-27 22:07:00 Baker Grisel [facility] (A1C) [facility] URINALYSIS 2022-12-27 22:07:00 [facility] ASSIGNMENT OF BENEFITS 2022-06-27 20:16:49 Doctor Unassigned, No [facility] NOTICE OF PRIVACY 2022-05-28 12:04:25 Doctor Unassigned, No [facility] PRACTICES [facility] CONSENT/REFUSAL FOR 2022-05-28 12:00:20 Doctor Unassigned, No [facility] DIAGNOSIS AND TREATMENT [facility] Encounters Start End Encounter Admission Attending Care Care Encounter Source Date/Time Date/Time Type Type Clinicians Facility Department ID 2023-03-04 2023-03-04 Outpatient R MINDY, [facility] [id number] Univers 09:20:00 09:20:00 MONIQUE ryan [facility] 2023-02-24 2023-02-24 Rod Filler 2, Adc Lab [facility] 1.2.840.114 [id number] Univers 13:30:00 13:45:00 [facility] [place] [id number] Sc dical NAL 353 [facility] 2023-02-24 2023-02-24 [facility] [id number] Univers 13:30:00 12:57:30 GRISEL ity of [facility] 2023-02-24 2023-02-24 Office [facility] [id number] [id number] Univers 08:00:00 08:50:08 Visit Grisel PASCUAL 350.1.13.10 i ty of [place] [id number] Sc dicoralia NAL 044 [facility] 2023-02-24 2023-02-24 Telephone [facility] [id number] Univers 00:00:00 00:00:00 Grisel PASCUAL 350.1.13.10 i ty of [place] [id number] [facility] 2023-02-20 2023-02-20 Telephone [facility] [id number] Univers 00:00:00 00:00:00 [facility] 350.1.13.10 it y of [place] 4.2.7.2.686 [place] KAYE?BLEA [id number] [facility] SHAHRIAR [address] [place] [address] OFFICE [facility] 2023-02-18 2023-02-18 Orders Doctor MIKAYLA 1.2.840.114 [id number] Univers 00:00:00 00:00:00 Only Unassigned, ALBERT 350.1.13.10 ity of [place] [facility] 4.2.7.2.686 [place] [id number] [address] 2023-02-17 2023-02-17 Telephone [facility] [id number] Univers 00:00:00 00:00:00 Grisel PASCUAL 350.1.13.10 i ty [place] [id number] Sc dical N[place] 044 [facility] 2023-01-10 2023-01-10 [facility] [id number] Univers 13:00:00 13:30:35 GRISEL ryan of [facility] 2023-01-10 2023-01-10 Office [facility] [id number] [id number] Univers 13:00:00 13:30:35 Visit Grisel PASCUAL 350.1.13.10 i ty of [place] 4[place]2.[place] [id number] Sc dical N[place] 044 [facility] 2023-01-03 2023-01-03 Telephone [facility] [id number] Univers 00:00:00 00:00:00 Griselbeau PASCUAL 350.1.13.10 i ty of [place] 4[place]7.[place] [id number] Sc dical N[place] 044 [facility] 2023-01-02 2023-01-02 Rod Filler Jennifer, Adc Lab Main [facility] 1.2.8 40.114 [id number] Univers 09:15:00 09:30:00 Visit Grisel Gillette 350.1.13.10 ity of [place] [id number] Sc dical NAL 353 [facility] 2023-01-02 2023-01-02 [facility] [id number] Univers 09:15:00 09:15:00 GRISEL ryan of [facility] 2022-12-27 2022-12-27 Rod Filler Jennifer, Adc Lab Main [facility] 1.2.8 40.114 [id number] [facility] 17:00:00 17:15:00 Visit Grisel Gillette 350.1.13.10 ity of [place] [id number] Sc dical N[place] 353 [facility] 2022-12-27 2022-12-27 Outpatient R [facility] [id number] Univers 16:00:00 16:31:18 GRISEL ity [facility] 2022-12-27 2022-12-27 Office [facility] 1.2.840.114 [id number] Univers 16:00:00 16:31:18 Visit Grsiel PASCU[place] 350.1.13.10 i ty [place] [id number] Sc dical [facility] 044 [facility] 2022-09-24 2022-09-24 Outpatient [facility] [id number] Univers 15:00:00 15:00:00 GRISEL shelby [facility] 2022-06-27 2022-06-27 Rod Filler 2, Adc Lab [facility] 1.2.840.114 [id number] Univers 15:30:00 15:45:00 Visit Grisel [place] 350.1.13.10 ity of [place] [id number] [facility] 353 [facility] 2022-06-27 2022-06-27 Outpatient [facility] [id number] Univers 14:30:00 15:17:17 GRISEL ryan [facility] 2022-06-27 2022-06-27 Office [facility] 1.2.840.114 [id number] Univers 14:30:00 15:17:17 Visit Grisel PASCUAL 350.1.13.10 i ty of [place] [id number] [address] 2022-06-27 2022-06-27 Orders Doctor MIKAYLA 1.2.840.114 [id number] Univers 00:00:00 00:00:00 Only Unassigned, ALBERT 350.1.13.10 ity of [place] [facility] 4.2.7.2.686 [place] [id number] [address] 2022-06-27 2022-06-27 Letter [facility] 1.2.840.114 [id number] Univers 00:00:00 00:00:00 (Out) Grisel PASCUAL 350.1.13.10 i ty [place] [id number] Sc dical NAL 044 [facility] 2022-05-28 2022-05-28 Emergency X [facility] E[facility] [id number] Univers 06:16:00 06:27:00 PAULA [facility] 2022-05-28 2022-05-28 Emergency [facility] 1.2.840.114 [id number] Univers 06:16:00 06:27:00 Paula [place] 350.1.13.10 [facility] 4.2.7.2.686 [facility] [id number] [facility] [address] [place] 2022-05-28 2022-05-28 Letter CarolMIKAYLA esteban 1.2.840.114 [id number] Univers 00:00:00 00:00:00 (Out) Mariza Arias ALB[place] 350.1.13.10 it [facility] 4.2.7.2.686 [facility] [id number] [facility] [address] [place] 2006-01-21 2006-01-21 Outpatient [facility] [id number] Univers 00:00:00 14:20:11 9 [facility] Results Test Description Test Time Test Comments Results Result Comments Source GLYCOSYLATED HEMOGLOBIN (A1C) 2022-12-28 00:47:03 Test Item Value Reference Range Interpretation Comme nts HGB A1C (test code = 4548-4) 6.1 % 4.0-5.7 H CARLOS (test code = CARLOS) Reference RangesNormal: <5.7%Prediabetes: 5.7 - 6.4%Diabetes: > 6.5% Lab Interpretation (test code = Abnormal 11481-3) [facility]A1C)2022-12-28 00:47:03 Test Item Value Reference Range Interpretation Comments HGB A1C (test code = 6.1 % 4.0-5.7 H 4548-4) CARLOS (test code = CARLOS) Reference RangesNormal: <5.7%Prediabetes: 5.7 - 6.4%Diabetes: > 6.5% Lab Interpretation (test Abnormal code = 91383-1) [facility] [id number] 00:45:22 Test Item Value Reference Range Interpretation Comments TSH (test code = 5.01 See_Comment H [Automated message] [id number]) The system [employer] generated this result transmitted ref erence range: 0.45 - 4 .70 mIU/L. The refe rence range was not u sed to interpret this result as normal/abnor mal. Lab Interpretation (test Abnormal code = 83183-1) [facility] [id number] 00:45:22 Test Item Value Reference Range Interpretation Comments TSH (test code = 5.01 See_Comment H [Automated message] [id number]) The system [employer] generated this result transmitted ref erence range: 0.45 - 4 .70 mIU/L. The refe rence range was not u sed to interpret this result as normal/abnor mal. Lab Interpretation (test Abnormal code = 23893-4) [facility] [id number] 00:31:42 Test Item Value Reference Range Interpretation Comments FREE T4 (test code = 0.83 See_Comment [Autom ated message] [id number]) The system [employer] generated this result transmitted ref erence range: 0.78 - 2 .20 ng/dL:. The ref erence range was not u sed to interpret this result as normal/abnor mal. Lab Interpretation (test Normal code = 73163-4) [facility] [id number] 00:31:42 Test Item Value Reference Range Interpretation Comments FREE T4 (test code = 0.83 See_Comment [Autom ated message] [id number]) The system [employer] generated this result transmitted ref erence range: 0.78 - 2 .20 ng/dL:. The ref erence range was not u sed to interpret this result as normal/abnor mal. Lab Interpretation (test Normal code = 49689-9) [facility]. METABOLIC PANEL ([id number])2022-12-28 00:15:44 Test Item Value Reference Range Interpretation Comments NA (test code = 144 mmol/L 135-145 5388970875) K (test code = 4.9 mmol/L 3.5-5.0 2958761721) CL (test code = 101 mmol/L 98-108 9292810056) CO2 TOTAL (test code = 32 mmol/L 23-31 H 2295899365) AGAP (test code = 11 2-16 7553319164) BUN (test code = 14 mg/dL 7-23 7723034030) GLUCOSE (test code = 94 mg/dL 70-110 7004485402) CREATININE (test code = 1.16 mg/dL 0.60-1.25 2562094830) TOTAL BILI (test code = 0.4 mg/dL 0.1-1.4 3576643160) CALCIUM (test code = 9.4 mg/dL 8.6-10.6 0403847394) T PROTEIN (test code = 7.7 g/dL 6.3-8.2 2645833784) ALBUMIN (test code = 4.5 g/dL 3.5-5.0 5547917184) ALK PHOS (test code = 105 U/L 34-122 1790874215) ALTv (test code = 44 U/L 5-50 2-6) AST(SGOT) (test code = 48 U/L 13-40 H 0440408346) eGFR (test code = 69.0 mL/min/1.73m2 7893127292) CARLOS (test code = CARLOS) Association of [...] tests). Lab Interpretation Abnormal (test code = 75394-7) [facility]. METABOLIC PANEL ([id number])2022-12-28 00:15:44 Test Item Value Reference Range Interpretation Comments NA (test code = 144 mmol/L 135-145 1261304358) K (test code = 4.9 mmol/L 3.5-5.0 1098809472) CL (test code = 101 mmol/L 98-108 5160130137) CO2 TOTAL (test code = 32 mmol/L 23-31 H 0921388194) AGAP (test code = 11 2-16 2615131999) BUN (test code = 14 mg/dL 7-23 1050057848) GLUCOSE (test code = 94 mg/dL 70-110 0556947596) CREATININE (test code = 1.16 mg/dL 0.60-1.25 1773786517) TOTAL BILI (test code = 0.4 mg/dL 0.1-1.4 6504069404) CALCIUM (test code = 9.4 mg/dL 8.6-10.6 2154139274) T PROTEIN (test code = 7.7 g/dL 6.3-8.2 0481051000) ALBUMIN (test code = 4.5 g/dL 3.5-5.0 9042238766) ALK PHOS (test code = 105 U/L 34-122 8344240794) ALTv (test code = 44 U/L 5-50 1742-6) AST(SGOT) (test code = 48 U/L 13-40 H 4573864580) eGFR (test code = 69.0 mL/min/1.73m2 4921533697) CARLOS (test code = CARLOS) Association of [...] tests). Lab Interpretation Abnormal (test code = 68937-6) [facility] WITH [id number] 22:30:50 Test Item Value Reference Range Interpretation Comments WBC (test code = 8.71 See_Comment [Automated message] 9565-2) The system [employer] generated this result transmitted ref erence range: 4.20 - 1 0.70 10*3/?L. The re ference range was not u sed to interpret this result as normal/abnor mal. RBC (test code = 4.61 See_Comment [Automated message] 791-8) The system [employer] generated this result transmitted ref erence range: 4.26 - 5 .52 10*6/?L. The re ference range was not u sed to interpret this result as normal/abnor mal. HGB (test code = 13.8 g/dL 12.2-16.4 318-7) HCT (test code = 43.0 % 38.4-49.3 4544-3) MCV (test code = 93.3 fL 81.7-95.6 787-2) MCH (test code = 29.9 pg 26.1-32.7 785-6) MCHC (test code = 32.1 g/dL 31.2-35.0 786-4) RDW-SD (test code 42.8 fL 38.5-51.6 = 63226-0) RDW-CV (test code 12.4 % 12.1-15.4 = 788-0) PLT (test code = 254 See_Comment [Automated message] 777-3) The system whic h generated this result transmitted ref erence range: 150 - 32 8 10*3/?L. The re ference range was not u sed to interpret this result as normal/abnor mal. MPV (test code = 11.5 fL 9.8-13.0 87981-4) NRBC/100 WBC (test 0.0 See_Comment [Automat ed message] code = 7727402482) The syste m which generated this result transmitted ref erence range: 0.0 - 10 .0 /100 WBCs. The refer ence range was not u sed to interpret this result as normal/abnor mal. NRBC x10^3 (test See_Comment [Automated message] code = 3126349791) The syste m which generated this result transmitted ref erence range: 10*3/?L. The reference range was not used to interpr et this result as normal/abnormal . GRAN MAT (NEUT) % 58.7 % (test code = 770-8) IMM GRAN % (test 0.50 % code = 2627812673) LYMPH % (test code 27.9 % = 736-9) MONO % (test code 10.0 % = 5905-5) EOS % (test code = 2.2 % 713-8) BASO % (test code 0.7 % = 706-2) GRAN MAT 5.12 10*3/uL 1.99-6.95 x10^3(ANC) (test code = 1899350157) IMM GRAN x10^3 0.04 10*3/uL 0.00-0.06 (test code = 2263784660) LYMPH x10^3 (test 2.43 10*3/uL 1.09-3.23 code = 731-0) MONO x10^3 (test 0.87 10*3/uL 0.36-1.02 code = 742-7) EOS x10^3 (test 0.19 10*3/uL 0.06-0.53 code = 711-2) BASO x10^3 (test 0.06 10*3/uL 0.01-0.09 code = 704-7) [facility] WITH [id number] 22:30:50 Test Item Value Reference Range Interpretation Comments WBC (test code = 8.71 See_Comment [Automated message] 1590-2) The system [employer] generated this result transmitted ref erence range: 4.20 - 1 0.70 10*3/?L. The re ference range was not u sed to interpret this result as normal/abnor mal. RBC (test code = 4.61 See_Comment [Automated message] 869-8) The system [employer] generated this result transmitted ref erence range: [...] RDW-SD (test code 42.8 fL 38.5-51.6 = 05247-5) RDW-CV (test code 12.4 % 12.1-15.4 = 788-0) PLT (test code = 254 See_Comment [Automated message] 277-3) The system [employer] generated this result transmitted ref erence range: 150 - 32 8 10*3/?L. The re ference range was not u sed to interpret this result as normal/abnor mal. MPV (test code = 11.5 fL 9.8-13.0 76597-1) NRBC/100 WBC (test 0.0 See_Comment [Automat ed message] code = 0222149806) The [employer] m which generated this result transmitted ref erence range: 0.0 - 10 .0 /100 WBCs. The refer ence range was not u sed to interpret this result as normal/abnor mal. NRBC x10^3 (test See_Comment [Automated message] code = 2019804047) The syste m which generated this result transmitted ref erence range: 10*3/?L. The reference range was not used to interpr et this result as normal/abnormal . GRAN MAT (NEUT) % 58.7 % (test code = 770-8) IMM GRAN % (test 0.50 % code = 7710837681) LYMPH % (test code 27.9 % = 736-9) MONO % (test code 10.0 % = 5905-5) EOS % (test code = 2.2 % 713-8) BASO % (test code 0.7 % = 706-2) GRAN MAT 5.12 10*3/uL 1.99-6.95 x10^3(ANC) (test code = 0146024776) IMM GRAN x10^3 0.04 10*3/uL 0.00-0.06 (test code = 0370031699) LYMPH x10^3 (test 2.43 10*3/uL 1.09-3.23 code = 731-0) MONO x10^3 (test 0.87 10*3/uL 0.36-1.02 code = 742-7) EOS x10^3 (test 0.19 10*3/uL 0.06-0.53 code = 711-2) BASO x10^3 (test 0.06 10*3/uL 0.01-0.09 code = 704-7) [facility]"
--- NOTE | 2023-03-07 23:12 | ER ---
Nurse's Notes [facility] Name: Gurpreet Davis Age: 42 yrs Sex: Male : 1980 Arrival Date: 03/07/2023 Time: 22:44 Bed 8 Private MD: Diagnosis: Sciatica, left side Presentation: 03/07 23:05 Chief complaint: Patient states: "I was cleaning my car out today and feel like I mb9 pulled something. My left lower back hurts and the pain shoots down my left leg". Coronavirus screen: Vaccine status: Patient reports receiving the 2nd dose of the covid vaccine. Ebola Screen: No symptoms or risks identified at this time. Initial Sepsis Screen: Does the patient meet any 2 criteria? No. Patient's initial sepsis screen is negative. Does the patient have a suspected source of infection? No. Patient's initial sepsis screen is negative. Risk Assessment: Do you want to hurt yourself or someone else? Patient reports no desire to harm self or others. Onset of symptoms was March 07, 2023. 23:05 Method Of Arrival: Ambulatory mb9 23:05 Acuity: YURY 4 mb9 Triage Assessment: 23:07 General: Appears in no apparent distress. Behavior is cooperative. Pain: Complains of mb9 pain in back Pain radiates to right leg Quality of pain is described as sharp, shooting, Pain began suddenly, Is continuous, Aggravated by increased activity, repositioning. EENT: No signs and/or symptoms were reported regarding the EENT system. Neuro: Hansen Agitation-Sedation Scale (RASS): 0 - Alert and Calm Level of Consciousness is awake, alert, obeys commands, Oriented to person, place, time, situation, Appropriate for age. Cardiovascular: Patient's skin is warm and dry. Respiratory: Airway is patent Respiratory effort is even, unlabored, Respiratory pattern is regular, symmetrical. GI: No signs and/or symptoms were reported involving the gastrointestinal system. : No signs and/or symptoms were reported regarding the genitourinary system. Derm: Skin is pink, warm \\T\\ dry. Musculoskeletal: Range of motion: intact in all extremities. Historical: - Allergies: 23:06 No Known Allergies; mb9 - Home Meds: 23:06 Hydrochlorothiazide Oral [Active]; Labetalol Oral [Active]; mb9 - PMHx: 23:06 Hypertensive disorder; mb9 - PSHx: 23:06 None; mb9 - Immunization history:: Adult Immunizations up to date. - Social history:: Smoking status: Patient denies any tobacco usage or history of. Screenin:20 [facility] ED Fall Risk Assessment (Adult) History of falling in the last 3 months, lg3 including since admission No falls in past 3 months (0 pts). Abuse screen: Denies threats or abuse. Denies injuries from another. Nutritional screening: No deficits noted. Tuberculosis screening: No symptoms or risk factors identified. Assessment: 23:20 General: Appears in no apparent distress. uncomfortable, Behavior is calm, cooperative. lg3 Pain: Complains of pain in left low back Pain radiates to left leg. Neuro: No deficits noted. Hansen Agitation-Sedation Scale (RASS): 0 - Alert and Calm Level of Consciousness is awake, alert, obeys commands, Oriented to person, place, time, situation. Cardiovascular: No deficits noted. Denies chest pain, shortness of breath, Capillary refill < 3 seconds Clubbing of nail beds is absent JVD is absent Patient's skin is warm and dry. Respiratory: No deficits noted. Airway is patent Respiratory effort is even, unlabored, Respiratory pattern is regular, symmetrical. GI: No deficits noted. No signs and/or symptoms were reported involving the gastrointestinal system. : No deficits noted. No signs and/or symptoms were reported regarding the genitourinary system. EENT: No deficits noted. No signs and/or symptoms were reported regarding the EENT system. Derm: No deficits noted. No signs and/or symptoms reported regarding the dermatologic system. Skin is intact, is healthy with good turgor, Skin is dry, Skin is normal, Skin temperature is warm. Musculoskeletal: Circulation, motion, and sensation intact. Range of motion: intact in all extremities, Reports pain in back. Vital Signs: 23:05 BP 129 / 66; Pulse 79; Resp 20; Temp 97.9(T); Pulse Ox 98% on R/A; Weight 158.76 kg; mb9 Height 5 ft. 5 in. ; 23:05 Body Mass Index 58.24 (158.76 kg, 165.1 cm) 9 ED Course: 22:58 Patient arrived in ED. ag3 23:00 oRmmel Pierre MD is Attending Physician. ec2 23:06 Triage completed. mb9 23:06 Arm band placed on. mb9 23:20 Patient has correct armband on for positive identification. Bed in low position. Call lg3 light in reach. Side rails up X 1. Client placed on continuous cardiac and pulse oximetry monitoring. NIBP monitoring applied. Door closed. Noise minimized. Family accompanied patient. 23:20 No provider procedures requiring assistance completed. Patient did not have IV access lg3 during this emergency room visit. Administered Medications: 23:19 Drug: Ketorolac IM 60 mg IM once Route: IM; Site: left deltoid; lg3 23:23 Follow up: Response: No adverse reaction lg3 23:19 Drug: predniSONE PO 40 mg PO once Route: PO; lg3 23:23 Follow up: Response: No adverse reaction lg3 23:20 Drug: Methocarbamol PO 1000 mg PO once Route: PO; lg3 23:23 Follow up: Response: No adverse reaction lg3 Medication: 23:20 VIS not applicable for this client. lg3 Outcome: 23:12 Discharge ordered by . ec2 23:24 Discharged to home ambulatory, with significant other, lg3 23:24 Condition: stable 23:24 Discharge instructions given to patient, Instructed on discharge instructions, follow up and referral plans. medication usage, Demonstrated understanding of instructions, follow-up care, medications, Prescriptions given X 2, 23:25 Patient left the ED. lg3 Signatures: Leona Villalobos 3 Katelynn Mon RN RN lg3 Maya Tillman RN RN mb9 Rommel Pierre MD MD ec2 Corrections: (The following items were deleted from the chart) 23:07 23:06 Home Meds: carvedilol oral; singh mb9
--- NOTE | 2023-03-07 23:13 | EDPHYS ---
Physician Documentation [facility] Name: Gurpreet Davis Age: 42 yrs Sex: Male : 1980 Arrival Date: 03/07/2023 Time: 22:44 Bed 8 Private MD: ED Physician Rommel Pierre HPI: 03/07 23:13 This 42 yrs old Black Male presents to ER via Ambulatory with complaints of Back Pain. ec2 23:13 Patient arrives today due to concern for left-sided back pain. States that he was bent ec2 over cleaning his car and subsequently started having some sharp pain in his left lower lateral back going into the left leg. Patient reports no falls or injuries, denies any red flag symptoms such as bowel or bladder incontinence. No history of previous spinal cord surgery. Denies any other concerns.. Historical: - Allergies: 23:06 No Known Allergies; mb9 - Home Meds: 23:06 Hydrochlorothiazide Oral [Active]; Labetalol Oral [Active]; mb9 - PMHx: 23:06 Hypertensive disorder; mb9 - PSHx: 23:06 None; mb9 - Immunization history:: Adult Immunizations up to date. - Social history:: Smoking status: Patient denies any tobacco usage or history of. ROS: 23:13 Constitutional: back pain ec2 Exam: 23:13 Constitutional: GEN: NAD Head: atraumatic Eyes: EOMI Ears: External ears are ec2 normal. CV: regular rate LUNGS: no respiratory distress ABD: non-distended SKIN: no evidence of rashes MSK: Left lower lateral back with tenderness palpation without deformities or crepitus, no midline tenderness to palpation. Positive straight leg raise test on the left side. NEURO: moves all extremities equally, strength intact in bilateral lower extremities, sensation intact. Vital Signs: 23:05 BP 129 / 66; Pulse 79; Resp 20; Temp 97.9(T); Pulse Ox 98% on R/A; Weight 158.76 kg; mb9 Height 5 ft. 5 in. ; 23:05 Body Mass Index 58.24 (158.76 kg, 165.1 cm) mb9 MDM: 23:00 Patient medically screened. ec2 23:13 Data reviewed: vital signs. ED course: Patient arrives today due to concern for left ec2 lateral low back pain. Examination remarkable for MSK findings as noted above, most pointedly positive straight leg raise test as well as left lateral low back tenderness palpation. Will give the patient Robaxin, Toradol as well as prednisone. Presentation consistent with sciatica. Given lack of red flag symptoms I have a low clinical suspicion for acute spinal cord injury, accordingly will defer any advanced imaging such as CT MRI. Additionally low suspicion for bony fracture given lack of traumatic pathology. Will discharge home with prescription for Robaxin and prednisone, return precautions given.. Administered Medications: 23:19 Drug: Ketorolac IM 60 mg IM once Route: IM; Site: left deltoid; lg3 23:23 Follow up: Response: No adverse reaction lg3 23:19 Drug: predniSONE PO 40 mg PO once Route: PO; lg3 23:23 Follow up: Response: No adverse reaction lg3 23:20 Drug: Methocarbamol PO 1000 mg PO once Route: PO; lg3 23:23 Follow up: Response: No adverse reaction lg3 Disposition Summary: 03/07/23 23:12 Discharge Ordered Notes: Location: Home ec2 Condition: Stable ec2 Diagnosis - Sciatica, left side ec2 Discharge Instructions: - Discharge Summary Sheet ec2 - Sciatica ec2 Forms: - Medication Reconciliation Form ec2 - Thank You Letter ec2 - Antibiotic Education ec2 - Prescription Opioid Use ec2 - Patient Portal Instructions ec2 - Leadership Thank You Letter ec2 Prescriptions: - Prednisone 20 mg Oral Tablet - take 2 tablets ORAL route once daily for 5 days; 10 tablet; Refills: 0, Product ec2 Selection Permitted - methocarbamol 500 mg Oral tablet - take 2 tablets ORAL route 4 times per day; 30 tablet; Refills: 0, Product ec2 Selection Permitted Signatures: Katelynn Mon RN RN lg3 Maya Tillman RN RN mb9 Rommel Pierre MD MD ec2 Corrections: (The following items were deleted from the chart) 23:07 23:06 Home Meds: carvedilol oral; singh winters
[2023-03-07] MEDS ORDERED: KETOROLAC 30 MG/ML INJ ONE (23:27)
[2023-03-07] MEDS ORDERED: predniSONE 20 MG TAB ONE (23:27)
[2023-03-07] MEDS ORDERED: methocarbamoL 500 MG TAB ONE (23:27)
[2023-03-08 00:43] VITALS: BP 129/66; TEMP 97.9; O2SAT 98
== END 2023-03-07 23:25 | disposition home or self-care (01) ==
LOC: ER 22:44
DX: M54.32 Sciatica, left side (principal)
CPT/HCPCS: 96372; 99284; J7512

== ENCOUNTER → 2023-08-02 | Emergency (ER) | payer OTHER ==
[~2023-08-02] MED LIST: DICYCLOMINE HCL 10 MG CAP ONE; FAMOTIDINE 20 MG/2 ML VIAL IV ONE; NA CHLORIDE 0.9% 1,000 ML ONE; ONDANSETRON 4 MG/2 ML VIAL ONE
--- OUTSIDE RECORDS SUMMARY | 2023-08-02 19:52 | XMS REPORT | Continuity of Care Document ---
Author Name Unknown Address [address] [facility] [address] [place] [address] [facility] thconnect Address [address] [facility] [address] [place] [address] Care Team Providers Care Painter Airbrush Name Role Phone GRISEL GILLETTE Primary Care Physician UnavailGRISEL Jovel Attending Clinician Unavailable RICKY OCHOA Attending Clinician Unavailable Grisel Camara Attending Clinician [phone], [facility] Attending Clinician Unavailable ANTHONY DOVER Attending Clinician UnavailAnthony Waite MD Attending Clinician [phone] [phone], [facility] Main Attending Clinician UnavailRosa Maria Broderick Attending Clinician ROSA MARIA LAND Attending Clinician Unavaila sandi Doctor Unassigned, Marie Attending Clinician MONIQUE Romero Attending Clinician Unavailable PAULA GONSALES Attending Clinician UnavailPaula Morales DO Attending Clinician [phone] Carol FIELD, Mariza Arias Attending Clinician Unavailab skelton Payers Payer Name Policy Type Policy Number Effective Date Expirati on Date Source [employer] GENERIC [id number] 2023 00:00:00 Problems Condition Name Condition Details Condition Category Status Onset Date Resolution Date Last Treatment Date Treating Clinician Comments Source No known active problems No known active problems Disease [facility] Allergies, Adverse Reactions, Alerts Allergy Name Allergy Type Status Severity Reaction(s) Onset Date Inactive Date Treating Clinician Comments Source NO KNOWN ALLERGIE S Drug Class Active Univers [facility] Social History Social Habit Start Date Stop Date Quantity Comments Source Gender [facility] Sexual orientation U niversity [facility] Exposure to SARS-CoV-2 (event) 2022-06-17 00:00:00 2022-06-27 14:15:00 Not sure [facility] Alcohol intake 2022-06-27 00:00:00 2022-06-27 00:00:00 Lifetime non-drinker (finding) [facility] History of Social function 2022-06-27 00:00:00 2022-06-27 00:00:00 [facility] Sex Assigned At 1980 00:00:00 1980 00:00:00 [facility] Smoking Status Start Date Stop Date Source Tobacco smoking consumption unknown [facility] Medications Ordered Medication Name Filled Medication Name Start Date Stop Date Current Medication? Ordering Clinician Indication Dosage Frequency Signature (SIG) Comments Components Source tadalafiL (CIALIS) 20 mg tablet 07-30 00:00: 00 Yes [id number] 20mg Take 1 tablet by mouth as needed for Erectile dysfunctio n. [facility] tadalafiL (CIALIS) 20 mg tablet 07-30 00:00: 00 Yes [id number] 20mg Take 1 tablet by mouth as needed for Erectile dysfunctio n. [facility] levothyroxi ne 25 mcg tablet 07-24 00:00: 00 Yes [id number] 25ug Take 1 tablet by mouth every morning. [facility] metFORMIN 500 mg tablet 07-24 00:00: 00 Yes [id number] 500mg Take 1 tablet by mouth in the morning and 1 tablet in the evening. Take with meals. [facility] levothyroxi ne 25 mcg tablet 07-24 00:00: 00 Yes [id number] 25ug Take 1 tablet by mouth every morning. [facility] metFORMIN 500 mg tablet 07-24 00:00: 00 Yes [id number] 500mg Take 1 tablet by mouth in the morning and 1 tablet in the evening. Take with meals. [facility] levothyroxi ne 25 mcg tablet 2023-0 3- 00:00: 00 Yes [id number] 25ug Take 1 tablet by mouth every morning. [facility] metFORMIN 500 mg tablet 2023-0 - 00:00: 00 Yes [id number] 500mg Take 1 tablet by mouth in the morning and 1 tablet in the evening. Take with meals. [facility] levothyroxi ne 25 mcg tablet 2023-0 3- 00:00: 00 Yes [id number] 25ug Take 1 tablet by mouth every morning. [facility] metFORMIN 500 mg tablet 0 - 00:00: 00 Yes [id number] 500mg Take 1 tablet by mouth in the morning and 1 tablet in the evening. Take with meals. [facility] levothyroxi ne 25 mcg tablet 2023-07-24 00:00: 00 Yes [id number] 25ug Take 1 tablet by mouth every morning. [facility] metFORMIN 500 mg tablet 07-24 00:00: 00 Yes [id number] 500mg Take 1 tablet by mouth in the morning and 1 tablet in the evening. Take with meals. [facility] amLODIPine (NORVASC) 10 mg tablet 2023-0 2- 00:00: 00 Yes [id number] 10mg Take 1 tablet by mouth in the morning. [facility] carvediloL (COREG) 25 mg tablet 0 - 00:00: 00 Yes [id number] 25mg Take 1 tablet by mouth in the morning and 1 tablet in the evening. Take with meals. [facility] hydroCHLORO thiazide 25 mg tablet 2023-0 2- 00:00: 00 Yes [id number] 25mg Take 1 tablet by mouth in the morning. [facility] amLODIPine (NORVASC) 10 mg tablet 2023-0 - 00:00: 00 Yes [id number] 10mg Take 1 tablet by mouth in the morning. [facility] carvediloL (COREG) 25 mg tablet 2023-0 2- 00:00: 00 Yes [id number] 25mg Take 1 tablet by mouth in the morning and 1 tablet in the evening. Take with meals. [facility] hydroCHLORO thiazide 25 mg tablet 0 - 00:00: 00 Yes [id number] 25mg Take 1 tablet by mouth in the morning. [facility] amLODIPine (NORVASC) 10 mg tablet 06-27 00:00: 00 Yes [id number] 10mg Take 1 tablet by mouth in the morning. [facility] carvediloL (COREG) 25 mg tablet - 00:00: 00 Yes [id number] 25mg Take 1 tablet by mouth in the morning and 1 tablet in the evening. Take with meals. [facility] hydroCHLORO thiazide 25 mg tablet 06-27 00:00: 00 Yes [id number] 25mg Take 1 tablet by mouth in the morning. [facility] amLODIPine (NORVASC) 10 mg tablet 06-27 00:00: 00 Yes [id number] 10mg Take 1 tablet by mouth in the morning. [facility] carvediloL (COREG) 25 mg tablet 0 06-27 00:00: 00 Yes [id number] 25mg Take 1 tablet by mouth in the morning and 1 tablet in the evening. Take with meals. [facility] hydroCHLORO thiazide 25 mg tablet 06-27 00:00: 00 Yes [id number] 25mg Take 1 tablet by mouth in the morning. [facility] amLODIPine (NORVASC) 10 mg tablet 0 06-27 00:00: 00 Yes [id number] 10mg Take 1 tablet by mouth in the morning. [facility] carvediloL (COREG) 25 mg tablet 0 06-27 00:00: 00 Yes [id number] 25mg Take 1 tablet by mouth in the morning and 1 tablet in the evening. Take with meals. [facility] hydroCHLORO thiazide 25 mg tablet 2023-0 - 00:00: 00 Yes [id number] 25mg Take 1 tablet by mouth in the morning. [facility] amLODIPine (NORVASC) 10 mg tablet 2023-0 - 00:00: 00 Yes [id number] 10mg Take 1 tablet by mouth in the morning. [facility] carvediloL (COREG) 25 mg tablet 2023-0 - 00:00: 00 Yes [id number] 25mg Take 1 tablet by mouth in the morning and 1 tablet in the evening. Take with meals. [facility] hydroCHLORO thiazide 25 mg tablet 2023-0 - 00:00: 00 Yes [id number] 25mg Take 1 tablet by mouth in the morning. [facility] amLODIPine (NORVASC) 10 mg tablet 2023-0 - 00:00: 00 Yes [id number] 10mg Take 1 tablet by mouth in the morning. [facility] carvediloL (COREG) 25 mg tablet 2023-0 - 00:00: 00 Yes [id number] 25mg Take 1 tablet by mouth in the morning and 1 tablet in the evening. Take with meals. [facility] hydroCHLORO thiazide 25 mg tablet 2023-0 - 00:00: 00 Yes [id number] 25mg Take 1 tablet by mouth in the morning. [facility] amLODIPine (NORVASC) 10 mg tablet 2023-0 - 00:00: 00 Yes [id number] 10mg Take 1 tablet by mouth in the morning. [facility] carvediloL (COREG) 25 mg tablet 2023-0 - 00:00: 00 Yes [id number] 25mg Take 1 tablet by mouth in the morning and 1 tablet in the evening. Take with meals. [facility] hydroCHLORO thiazide 25 mg tablet 2023-0 - 00:00: 00 Yes [id number] 25mg Take 1 tablet by mouth in the morning. [facility] amLODIPine (NORVASC) 10 mg tablet 2023-0 - 00:00: 00 Yes [id number] 10mg Take 1 tablet by mouth in the morning. [facility] carvediloL (COREG) 25 mg tablet 2023-0 - 00:00: 00 Yes [id number] 25mg Take 1 tablet by mouth in the morning and 1 tablet in the evening. Take with meals. [facility] hydroCHLORO thiazide 25 mg tablet 2023-0 - 00:00: 00 Yes [id number] 25mg Take 1 tablet by mouth in the morning. [facility] amLODIPine (NORVASC) 10 mg tablet - 00:00: 00 Yes [id number] 10mg Take 1 tablet by mouth in the morning. [facility] carvediloL (COREG) 25 mg tablet - 00:00: 00 Yes [id number] 25mg Take 1 tablet by mouth in the morning and 1 tablet in the evening. Take with meals. [facility] hydroCHLORO thiazide 25 mg tablet - 00:00: 00 Yes [id number] 25mg Take 1 tablet by mouth in the morning. [facility] amLODIPine (NORVASC) 10 mg tablet 06-27 00:00: 00 Yes [id number] 10mg Take 1 tablet by mouth in the morning. [facility] carvediloL (COREG) 25 mg tablet - 00:00: 00 Yes [id number] 25mg Take 1 tablet by mouth in the morning and 1 tablet in the evening. Take with meals. [facility] hydroCHLORO thiazide 25 mg tablet 06-27 00:00: 00 Yes [id number] 25mg Take 1 tablet by mouth in the morning. [facility] amLODIPine (NORVASC) 10 mg tablet 2023-0 06-27 00:00: 00 Yes [id number] 10mg Take 1 tablet by mouth in the morning. [facility] carvediloL (COREG) 25 mg tablet 06-27 00:00: 00 Yes [id number] 25mg Take 1 tablet by mouth in the morning and 1 tablet in the evening. Take with meals. [facility] hydroCHLORO thiazide 25 mg tablet 2023-- 00:00: 00 Yes [id number] 25mg Take 1 tablet by mouth in the morning. [facility] carvediloL (COREG) 25 mg tablet 2022-05 0- 00:00: 00 Yes [id number] 25mg Take 1 tablet by mouth in the morning and 1 tablet in the evening. Take with meals. [facility] amLODIPine (NORVASC) 10 mg tablet 2022-05 0- 00:00: 00 Yes [id number] 10mg Take 1 tablet by mouth in the morning. [facility] hydroCHLORO thiazide 25 mg tablet 2022-05 0- 00:00: 00 Yes [id number] 25mg Take 1 tablet by mouth in the morning. [facility] carvediloL (COREG) 25 mg tablet 2022-05 0- 00:00: 00 Yes [id number] 25mg Take 1 tablet by mouth in the morning and 1 tablet in the evening. Take with meals. [facility] amLODIPine (NORVASC) 10 mg tablet 2022-05 0 00:00: 00 Yes [id number] 10mg Take 1 tablet by mouth in the morning. [facility] hydroCHLORO thiazide 25 mg tablet 2022-05 0 00:00: 00 Yes [id number] 25mg Take 1 tablet by mouth in the morning. [facility] carvediloL (COREG) 25 mg tablet 2022-05 0 00:00: 00 Yes [id number] 25mg Take 1 tablet by mouth in the morning and 1 tablet in the evening. Take with meals. [facility] amLODIPine (NORVASC) 10 mg tablet 2022-05 0 00:00: 00 Yes [id number] 10mg Take 1 tablet by mouth in the morning. [facility] hydroCHLORO thiazide 25 mg tablet 2022-05 0 00:00: 00 Yes [id number] 25mg Take 1 tablet by mouth in the morning. [facility] carvediloL (COREG) 25 mg tablet 2022-05 0- 00:00: 00 Yes [id number] 25mg Take 1 tablet by mouth in the morning and 1 tablet in the evening. Take with meals. [facility] amLODIPine (NORVASC) 10 mg tablet 2022-05 0- 00:00: 00 Yes [id number] 10mg Take 1 tablet by mouth in the morning. [facility] hydroCHLORO thiazide 25 mg tablet 2022-05 0- 00:00: 00 Yes [id number] 25mg Take 1 tablet by mouth in the morning. [facility] carvediloL (COREG) 25 mg tablet 2022-05 0- 00:00: 00 Yes [id number] 25mg Take 1 tablet by mouth in the morning and 1 tablet in the evening. Take with meals. [facility] amLODIPine (NORVASC) 10 mg tablet 2022-05 0 00:00: 00 Yes [id number] 10mg Take 1 tablet by mouth in the morning. [facility] hydroCHLORO thiazide 25 mg tablet 2022-05 0 00:00: 00 Yes [id number] 25mg Take 1 tablet by mouth in the morning. [facility] carvediloL (COREG) 25 mg tablet 2022-05 0 00:00: 00 Yes [id number] 25mg Take 1 tablet by mouth in the morning and 1 tablet in the evening. Take with meals. [facility] amLODIPine (NORVASC) 10 mg tablet 2022-05 0 00:00: 00 Yes [id number] 10mg Take 1 tablet by mouth in the morning. [facility] hydroCHLORO thiazide 25 mg tablet 2022-05 0 00:00: 00 Yes [id number] 25mg Take 1 tablet by mouth in the morning. [facility] carvediloL (COREG) 25 mg tablet 2022-05 0 00:00: 00 06-27 00:00 :00 No [id number] 25mg Take 1 tablet by mouth in the morning and 1 tablet in the evening. Take with meals. [facility] amLODIPine (NORVASC) 10 mg tablet 2022-05 0 00:00: 00 06-27 00:00 :00 No [id number] 10mg Take 1 tablet by mouth in the morning. [facility] hydroCHLORO thiazide 25 mg tablet 2022-05 0 00:00: 00 06-27 00:00 :00 No [id number] 25mg Take 1 tablet by mouth in the morning. [facility] carvediloL (COREG) 25 mg tablet 2022-05 0 00:00: 00 06-27 00:00 :00 No [id number] 25mg Take 1 tablet by mouth in the morning and 1 tablet in the evening. Take with meals. [facility] amLODIPine (NORVASC) 10 mg tablet 2022-05 0 00:00: 00 06-27 00:00 :00 No [id number] 10mg Take 1 tablet by mouth in the morning. [facility] hydroCHLORO thiazide 25 mg tablet 2022-05 0 00:00: 00 06-27 00:00 :00 No [id number] 25mg Take 1 tablet by mouth in the morning. [facility] carvediloL (COREG) 12.5 mg tablet 01-10 00:00: 00 Yes [id number] 12.5mg Take 1 tablet by mouth in the morning and 1 tablet in the evening. Take with meals. [facility] carvediloL (COREG) 12.5 mg tablet 01-10 00:00: 00 Yes [id number] 12.5mg Take 1 tablet by mouth in the morning and 1 tablet in the evening. Take with meals. [facility] carvediloL (COREG) 12.5 mg tablet 01-10 00:00: 00 Yes [id number] 12.5mg Take 1 tablet by mouth in the morning and 1 tablet in the evening. Take with meals. [facility] carvediloL (COREG) 12.5 mg tablet 01-10 00:00: 00 Yes [id number] 12.5mg Take 1 tablet by mouth in the morning and 1 tablet in the evening. Take with meals. [facility] carvediloL (COREG) 12.5 mg tablet 01-10 00:00: 00 02-24 00:00 :00 No [id number] 12.5mg Take 1 tablet by mouth in the morning and 1 tablet in the evening. Take with meals. [facility] carvediloL (COREG) 12.5 mg tablet 01-10 00:00: 00 02-24 00:00 :00 No [id number] 12.5mg Take 1 tablet by mouth in the morning and 1 tablet in the evening. Take with meals. [facility] carvediloL (COREG) 6.25 mg tablet 2022-0 01-03 00:00: 00 Yes [id number] 6.25mg Take 1 tablet by mouth in the morning and 1 tablet in the evening. Take with meals. [facility] carvediloL (COREG) 6.25 mg tablet 2022-01-03 00:00: 00 01-10 00:00 :00 No [id number] 6.25mg Take 1 tablet by mouth in the morning and 1 tablet in the evening. Take with meals. [facility] carvediloL (COREG) 6.25 mg tablet 2022-01-03 00:00: 00 01-10 00:00 :00 No [id number] 6.25mg Take 1 tablet by mouth in the morning and 1 tablet in the evening. Take with meals. [facility] amLODIPine (NORVASC) 10 mg tablet 2022-0 12-27 00:00: 00 Yes [id number] 10mg Take 1 tablet by mouth in the morning. [facility] hydroCHLORO thiazide 25 mg tablet 2022-0 8 00:00: 00 Yes [id number] 25mg Take 1 tablet by mouth in the morning. [facility] amLODIPine (NORVASC) 10 mg tablet 2022-0 8 00:00: 00 Yes [id number] 10mg Take 1 tablet by mouth in the morning. [facility] hydroCHLORO thiazide 25 mg tablet 2022-0 8 00:00: 00 Yes [id number] 25mg Take 1 tablet by mouth in the morning. [facility] amLODIPine (NORVASC) 10 mg tablet 2022-0 8- 00:00: 00 Yes [id number] 10mg Take 1 tablet by mouth in the morning. [facility] hydroCHLORO thiazide 25 mg tablet 3-0 8- 00:00: 00 Yes [id number] 25mg Take 1 tablet by mouth in the morning. [facility] amLODIPine (NORVASC) 10 mg tablet 2023-0 8-11 00:00: 00 Yes [id number] 10mg Take 1 tablet by mouth in the morning. [facility] hydroCHLORO thiazide 25 mg tablet 3-0 8-11 00:00: 00 Yes [id number] 25mg Take 1 tablet by mouth in the morning. [facility] amLODIPine (NORVASC) 10 mg tablet 3-0 8-11 00:00: 00 Yes [id number] 10mg Take 1 tablet by mouth in the morning. [facility] hydroCHLORO thiazide 25 mg tablet 3-0 8-11 00:00: 00 Yes [id number] 25mg Take 1 tablet by mouth in the morning. [facility] amLODIPine (NORVASC) 10 mg tablet 3-0 8-11 00:00: 00 Yes [id number] 10mg Take 1 tablet by mouth in the morning. [facility] hydroCHLORO thiazide 25 mg tablet 3-0 8-11 00:00: 00 Yes [id number] 25mg Take 1 tablet by mouth in the morning. [facility] amLODIPine (NORVASC) 10 mg tablet 3-0 8-11 00:00: 00 Yes [id number] 10mg Take 1 tablet by mouth in the morning. [facility] hydroCHLORO thiazide 25 mg tablet 3-0 8-11 00:00: 00 Yes [id number] 25mg Take 1 tablet by mouth in the morning. [facility] amLODIPine (NORVASC) 10 mg tablet 3-0 8-11 00:00: 00 Yes [id number] 10mg Take 1 tablet by mouth in the morning. [facility] hydroCHLORO thiazide 25 mg tablet 3-0 8-11 00:00: 00 Yes [id number] 25mg Take 1 tablet by mouth in the morning. [facility] amLODIPine (NORVASC) 10 mg tablet 3-0 8-11 00:00: 00 Yes [id number] 10mg Take 1 tablet by mouth in the morning. [facility] hydroCHLORO thiazide 25 mg tablet 3-0 8-11 00:00: 00 Yes [id number] 25mg Take 1 tablet by mouth in the morning. [facility] amLODIPine (NORVASC) 10 mg tablet 2022-0 8-11 00:00: 00 02-24 00:00 :00 No [id number] 10mg Take 1 tablet by mouth in the morning. [facility] hydroCHLORO thiazide 25 mg tablet 2022-0 8-11 00:00: 00 02-24 00:00 :00 No [id number] 25mg Take 1 tablet by mouth in the morning. [facility] amLODIPine (NORVASC) 10 mg tablet 2022-0 8-11 00:00: 00 02-24 00:00 :00 No [id number] 10mg Take 1 tablet by mouth in the morning. [facility] hydroCHLORO thiazide 25 mg tablet 2022-0 8-11 00:00: 00 02-24 00:00 :00 No [id number] 25mg Take 1 tablet by mouth in the morning. [facility] amLODIPine (NORVASC) 5 mg tablet 2022-0 2- 00:00: 00 Yes [id number] 5mg Take 1 tablet by mouth in the morning. [facility] amLODIPine (NORVASC) 5 mg tablet 2022-0 2 00:00: 00 Yes [id number] 5mg Take 1 tablet by mouth in the morning. [facility] amLODIPine (NORVASC) 5 mg tablet 2022-0 2 00:00: 00 Yes [id number] 5mg Take 1 tablet by mouth in the morning. [facility] amLODIPine (NORVASC) 5 mg tablet 2022-0 2- 00:00: 00 Yes [id number] 5mg Take 1 tablet by mouth in the morning. [facility] amLODIPine (NORVASC) 5 mg tablet 2022-0 2- 00:00: 00 Yes [id number] 5mg Take 1 tablet by mouth in the morning. [facility] amLODIPine (NORVASC) 5 mg tablet 2022-0 2- 00:00: 00 12-27 00:00 :00 No [id number] 5mg Take 1 tablet by mouth in the morning. [facility] amLODIPine (NORVASC) 5 mg tablet 0 09 00:00: 00 12-27 00:00 :00 No [id number] 5mg Take 1 tablet by mouth in the morning. [facility] amLODIPine (NORVASC) tablet 5 mg 2022-0 1-10 13:00: 00 05-28 12:20 :00 No 5mg 5 mg, Oral, ONCE, 1 dose, On Fri05/28/22 at 0700, Routine [facility] amLODIPine (NORVASC) 5 mg tablet 2022-0 1-10 00:00: 00 Yes [id number] 5mg Take 1 tablet by mouth in the morning. [facility] amLODIPine (NORVASC) 5 mg tablet 2022-0 1-10 00:00: 00 Yes [id number] 5mg Take 1 tablet by mouth in the morning. [facility] amLODIPine (NORVASC) 5 mg tablet 2022-0 1-10 00:00: 00 Yes [id number] 5mg Take 1 tablet by mouth in the morning. [facility] amLODIPine (NORVASC) 5 mg tablet 2022-0 1-10 00:00: 00 06-27 00:00 :00 No [id number] 5mg Take 1 tablet by mouth in the morning. [facility] amLODIPine (NORVASC) 5 mg tablet 2022-0 1-10 00:00: 00 06-27 00:00 :00 No [id number] 5mg Take 1 tablet by mouth in the morning. [facility] amLODIPine (NORVASC) 5 mg tablet 2022-0 1-10 00:00: 00 06-27 00:00 :00 No [id number] 5mg Take 1 tablet by mouth in the morning. [facility] Vital Signs Vital Name Observation Time Observation Value Comments S ourmick Systolic blood pressure 2023-07-31 14:51:00 141 mm[Hg] [facility] Diastolic blood pressure 2023-07-31 14:51:00 89 mm[Hg] [facility] Heart rate 2023-07-31 14:50:00 75 /min [facility] Body temperature 2023-07-31 14:50:00 36.67 Zenaida [facility] Respiratory rate 2023-07-31 14:50:00 18 /min [facility] Body height 2023-07-31 14:50:00 172.7 cm [facility] Body weight 2023-07-31 14:50:00 188.56 kg [facility] BMI 2023-07-31 14:50:00 63.21 kg/m2 [facility] Oxygen saturation in Arterial blood by Pulse oximetry 2023-07-31 14:50:00 94 /min [facility] Systolic blood pressure 2023-07-25 14:50:00 141 mm[Hg] has not taken bp meds this morning. [facility] Diastolic blood pressure 2023-07-25 14:50:00 81 mm[Hg] has not taken bp meds this morning. [facility] Heart rate 2023-07-25 14:50:00 77 /min [facility] Body temperature 2023-07-25 14:50:00 36.89 Zenaida [facility] Respiratory rate 2023-07-25 14:50:00 19 /min [facility] Body height 2023-07-25 14:50:00 167.6 cm [facility] Body weight 2023-07-25 14:50:00 188.606 kg [facility] BMI 2023-07-25 14:50:00 67.11 kg/m2 [facility] Oxygen saturation in Arterial blood by Pulse oximetry 2023-07-25 14:50:00 98 /min [facility] Systolic blood pressure 2023-06-27 20:50:00 138 mm[Hg] [facility] Diastolic blood pressure 2023-06-27 20:50:00 88 mm[Hg] [facility] Heart rate 2023-06-27 20:50:00 81 /min [facility] Body height 2023-06-27 20:50:00 167.6 cm [facility] Body weight 2023-06-27 20:50:00 184.75 kg [facility] BMI 2023-06-27 20:50:00 65.74 kg/m2 [facility] Oxygen saturation in Arterial blood by Pulse oximetry 2023-06-27 20:50:00 96 /min [facility] Systolic blood pressure 2023-02-24 13:22:00 171 mm[Hg] [facility] Diastolic blood pressure 2023-02-24 13:22:00 82 mm[Hg] [facility] Heart rate 2023-02-24 13:22:00 71 /min [facility] Body height 2023-02-24 13:22:00 167.6 cm [facility] Body weight 2023-02-24 13:22:00 177.13 kg [facility] BMI 2023-02-24 13:22:00 63.03 kg/m2 [facility] Oxygen saturation in Arterial blood by Pulse oximetry 2023-02-24 13:20:00 97 /min [facility] Systolic blood pressure 2023-01-10 18:18:00 136 mm[Hg] [facility] Diastolic blood pressure 2023-01-10 18:18:00 72 mm[Hg] [facility] Heart rate 2023-01-10 18:17:00 72 /min [facility] Body temperature 2023-01-10 18:17:00 36.11 Zenaida [facility] Respiratory rate 2023-01-10 18:17:00 18 /min [facility] Body height 2023-01-10 18:17:00 170.2 cm [facility] Body weight 2023-01-10 18:17:00 178.899 kg [facility] BMI 2023-01-10 18:17:00 61.77 kg/m2 [facility] Oxygen saturation in Arterial blood by Pulse oximetry 2023-01-10 18:17:00 96 /min [facility] Systolic blood pressure 2022-12-27 21:21:00 141 mm[Hg] [facility] Diastolic blood pressure 2022-12-27 21:21:00 91 mm[Hg] [facility] Heart rate 2022-12-27 21:19:00 87 /min [facility] Body temperature 2022-12-27 21:19:00 36.44 Zenaida [facility] Respiratory rate 2022-12-27 21:19:00 16 /min [facility] Body weight 2022-12-27 21:19:00 176.767 kg [facility] BMI 2022-12-27 21:19:00 62.90 kg/m2 [facility] Oxygen saturation in Arterial blood by Pulse oximetry 2022-12-27 21:19:00 97 /min [facility] Systolic blood pressure 2022-06-27 20:36:00 130 mm[Hg] [facility] Diastolic blood pressure 2022-06-27 20:36:00 78 mm[Hg] [facility] Heart rate 2022-06-27 20:36:00 82 /min [facility] Body height 2022-06-27 20:36:00 167.6 cm [facility] Body weight 2022-06-27 20:36:00 175.542 kg [facility] BMI 2022-06-27 20:36:00 62.46 kg/m2 [facility] Oxygen saturation in Arterial blood by Pulse oximetry 2022-06-27 20:36:00 97 /min [facility] Systolic blood pressure 2022-05-28 12:10:00 166 mm[Hg] [facility] Diastolic blood pressure 2022-05-28 12:10:00 104 mm[Hg] [facility] Heart rate 2022-05-28 12:10:00 67 /min [facility] Body temperature 2022-05-28 12:10:00 36.5 Zenaida [facility] Respiratory rate 2022-05-28 12:10:00 22 /min [facility] Body height 2022-05-28 12:10:00 167.6 cm [facility] Body weight 2022-05-28 12:10:00 174.635 kg [facility] BMI 2022-05-28 12:10:00 62.14 kg/m2 [facility] Oxygen saturation in Arterial blood by Pulse oximetry 2022-05-28 12:10:00 99 /min [facility] Procedures Procedure Date / Time Performed Performing Clinician Source CONSENT/REFUSAL FOR DIAGNOSIS AND TREATMENT 2023-06-27 20:31:49 Doctor Unassigned, Marie [facility] PATIENT QUESTIONNAIRE 2023-02-18 05:01:00 Doctor Unassigned, Marie [facility] FREE T4 2022-12-27 22:07:00 Grisel Gillette [facility] THYROID STIMULATING HORMONE 2022-12-27 22:07:00 Grisel Gillette [facility] COMP. METABOLIC PANEL ([id number]) 2022-12-27 22:07:00 Grisel Gillette [facility] CBC WITH DIFF 2022-12-27 22:07:00 Grisel Gillette [facility] GLYCOSYLATED HEMOGLOBIN (A1C) 2022-12-27 22:07:00 Rusty Gillettessica [facility] URINALYSIS 2022-12-27 22:07:00 Grisel Gillette [facility] ASSIGNMENT OF BENEFITS 2022-06-27 20:16:49 Docto r Unassigned, Marie [facility] NOTICE OF PRIVACY PRACTICES 2022-05-28 12:04:25 Doctor Unassigned, Marie [facility] CONSENT/REFUSAL FOR DIAGNOSIS AND TREATMENT 2022-05-28 12:00:20 Doctor Unassigned, Marie [facility] Encounters Start Date/Time End Date/Time Encounter Type Admission Type Attending Clinicians Care Facility Care Department Encounter ID Source 2023-10-24 10:00:00 2023-10-24 10:00:00 Outpatient GRISEL ZHOU [facility] [id number] [facility] 2023-09-25 08:00:00 2023-09-25 08:00:00 Outpatient GRISEL ZHOU [facility] [id number] [facility] 2023-08-04 00:00:00 2023-08-04 00:00:00 Outpatient GRISEL ZHOU [facility] [id number] [facility] 2023-07-31 10:00:00 2023-07-31 10:06:37 Office Visit Grisel Gillette [facility] 1.2.840.114 350.1.13.10 4.2.7.2.686 [id number] [id number] [facility] 2023-07-31 10:00:00 2023-07-31 10:06:37 Outpatient R GRISEL GILLETTE [facility] [id number] [facility] 2023-07-25 09:45:00 2023-07-25 10:00:00 Transition Rn Visit 2[facility] 1..[facility].114 350.1.13.10 4.2.7.2.686 [id number] [facility] 2023-07-25 09:00:00 2023-07-25 09:06:18 Outpatient R GRISEL GILLETTE [facility] [id number] [facility] 2023-07-25 09:00:00 2023-07-25 09:06:[address] [facility] 1..840.114 350.1.13.10 4.2.7.2.686 [id number] [facility] 2023-07-21 08:30:00 2023-07-21 08:30:00 Outpatient R JAZZMINE ANTHONY [facility] [id number] [facility] 2023-07-18 00:00:00 2023-07-18 00:00:00 Telephone Jazzmine Anthony [facility] 1..840.114 350.1.13.10 4.2.7.2.686 [id number] [facility] 2023-07-15 00:00:00 2023-07-15 00:00:00 Telephone Grisel Gillette [facility] 1..840.114 350.1.13.10 4.2.7.2.686 [id number] 044 [id number] [facility] 2023-06-28 10:45:00 2023-06-28 11:00:00 Transition [facility] Visit Pob[facility] 1.2.840.114 350.1.13.10 4.2.7.2.686 [id number] [facility] 2023-06-28 10:45:00 2023-06-28 10:45:00 [facility] [id number] [facility] 2023-06-27 15:30:00 2023-06-27 15:30:00 Office Visit Grisel Gillette [facility] 1.2.840.114 350.1.13.10 4.2.7.2.686 [id number] [facility] 2023-06-27 15:15:00 2023-06-27 15:30:00 Transition Rn Visit 2, [facility] 1.2.840.114 350.1.13.10 4.2.7.2.686 [id number] [facility] 2023-06-27 15:30:00 2023-06-27 15:08:17 Outpatient R RUSTY GILLETTESSICA [facility] [id number] [facility] 2023-06-27 00:00:00 2023-06-27 00:00:00 Orders Only Doctor Unassigned, Marie [facility] 1.2840.114 350.1.13.10 4.2.7.2.686 [id number] [facility] 2023-03-11 00:00:00 2023-03-11 00:00:00 Patient Secure Msg Doctor Unassigned, Marie [facility] 1.2.840.114 350.1.13.10 4.2.7.2.686 [id number] [facility] 2023-03-04 09:20:00 2023-03-04 09:20:00 Outpatient R MONIQUE GUILLEN [facility] [id number] [facility] 2023-02-24 13:30:00 2023-02-24 13:45:00 Transition Rn Visit 2, Adc Lab Rusty Gillettessica [facility] 1.2.840.114 350.1.13.10 4.2.7.2.686 [id number] [facility] 2023-02-24 13:30:00 2023-02-24 12:57:30 Outpatient R GRISEL GILLETTE [facility] [id number] [facility] 2023-02-24 08:00:00 2023-02-24 08:50:08 Office Visit Rusty Gillettessica [facility] 1.2.840.114 350.1.13.10 4.2.7.2.686 [id number] 044 [id number] [facility] 2023-02-24 00:00:00 2023-02-24 00:00:00 Telephone Rusty Gillettessica [facility] 1.2.840.114 350.1.13.10 4.2.7.2.686 [id number] 044 [id number] [facility] 2023-02-20 00:00:00 2023-02-20 00:00:00 Telephone [facility] 1.2.840.114 350.1.13.10 4.2.7.2.686 [id number] 044 [id number] [facility] 2023-02-18 00:00:00 2023-02-18 00:00:00 Orders Only Doctor Unassigned, Marie [facility] 1.2840.114 350.1.13.10 4.2.7.2.686 [id number] [facility] 2023-02-17 00:00:00 2023-02-17 00:00:00 Telephone Grisel Gillette [facility] 1.2.840.114 350.1.13.10 4.2.7.2.686 [id number] 044 [id number] [facility] 2023-01-10 13:00:00 2023-01-10 13:30:35 Outpatient R GRISEL GILLETTE [facility] [id number] [facility] 2023-01-10 13:00:00 2023-01-10 13:30:35 Office Visit Grisel Gillette [facility] 1.2.840.114 350.1.13.10 4.2.7.2.686 [id number] 044 [id number] [facility] 2023-01-03 00:00:00 2023-01-03 00:00:00 Telephone Grisel Gillette [facility] 1.2.840.114 350.1.13.10 4.2.7.2.686 [id number] 044 [id number] [facility] 2023-01-02 09:15:00 2023-01-02 09:30:00 Transition Rn Visit Jennifer, Adc Lab Main Grisel Gillette [facility] 1.2.840.114 350.1.13.10 4.2.7.2.686 [id number] [facility] 2023-01-02 09:15:00 2023-01-02 09:15:00 Outpatient R GRISEL GILLETTE [facility] [id number] [facility] 2022-12-27 17:00:00 2022-12-27 17:15:00 Transition Rn Visit Jennifer, Adc Lab Grisel Masters [facility] 1.2.840.114 350.1.13.10 4.2.7.2.686 [id number] 353 [id number] [facility] 2022-12-27 16:00:00 2022-12-27 16:31:18 Outpatient R GRISEL GILLETTE [facility] [id number] [facility] 2022-12-27 16:00:00 2022-12-27 16:31:18 Office Visit Grisel Gillette [facility] 1..840.114 350.1.13.10 4.2.7.2.686 [id number] [facility] 2022-09-24 15:00:00 2022-09-24 15:00:00 Outpatient R GRISEL GILLETTE [facility] [id number] [facility] 2022-06-27 15:30:00 2022-06-27 15:45:00 Transition Rn Visit 2, Adc Lab Grisel Gillette [facility] 1..840.114 350.1.13.10 4.2.7.2.686 [id number] [facility] 2022-06-27 14:30:00 2022-06-27 15:17:17 Outpatient R GRISEL GILLETTE [facility] [id number] [facility] 2022-06-27 14:30:00 2022-06-27 15:17:17 Office Visit Grisel Gillette [facility] 1..840.114 350.1.13.10 4.2.7.2.686 [id number] [id number] [facility] 2022-06-27 00:00:00 2022-06-27 00:00:00 Orders Only Doctor Unassigned, Marie [facility] 1..840.114 350.1.13.10 4.2.7.2.686 [id number] [facility] 2022-06-27 00:00:00 2022-06-27 00:00:00 [facility] 1.840.114 350.1.13.10 4.2.7.2.686 [id number] [facility] 2022-05-28 06:16:00 2022-05-28 06:27:00 Emergency X PAULA [facility]ES [facility] E[facility] [id number] [facility] 2022-05-28 06:16:00 2022-05-28 06:27:00 Emergency Paula [facility] 1.2840.114 350.1.13.10 4.2.7.2.686 [id number] [facility] 2022-05-28 00:00:00 2022-05-28 00:00:00 Letter (Out) Mariza Medina [facility] 1.2.840.114 350.1.13.10 4.2.7.2.686 [id number] [facility] 2006-01-21 00:00:00 2006-01-21 14:20:11 Outpatient [facility] [id number] [facility] Results Test Description Test Time Test Comments Results Result Co mments Source [facility]2022-12-28 00:47:03* Test Item Value Reference Range Interpretation Comme nts HGB A1C (test code = 4548-4) 6.1 % 4.0-5.7 H CARLOS (test code = CARLOS) Reference RangesNormal: <5.7%Prediabetes: 5.7 - 6.4%Diabetes: > 6.5% Lab Interpretation (test code = 03953-8) [facility]normal [facility] [id number] 00:45:22 * Test Item Value Reference Range Interpretation Comme nts TSH (test code = 3097819842) 5.01 See_Comment H [Automated messa ge] The system which generated this result transmitted reference range: 0.45 - 4.70 mIU/L. The reference range was not used to interpret this result as normal/abnormal. Lab Interpretation (test code = 84021-6) [facility]normal [facility] [id number] 00:45:22 * Test Item Value Reference Range Interpretation Comme nts TSH (test code = 8853056917) 5.01 See_Comment H [Automated messa ge] The system which generated this result transmitted reference range: 0.45 - 4.70 mIU/L. The reference range was not used to interpret this result as normal/abnormal. Lab Interpretation (test code = 59159-6) Abnormal [facility] [id number] 00:31:42* Test Item Value Reference Range Interpretation Comme nts FREE T4 (test code = 4281664150) 0.83 See_Comment [Automated messa ge] The system which generated this result transmitted reference range: 0.78 - 2.20 ng/dL:. The reference range was not used to interpret this result as normal/abnormal. Lab Interpretation (test code = 94615-7) Normal [facility] [id number] 00:31:42* Test Item Value Reference Range Interpretation Comme nts FREE T4 (test code = 9912497375) 0.83 See_Comment [Automated messa ge] The system which generated this result transmitted reference range: 0.78 - 2.20 ng/dL:. The reference range was not used to interpret this result as normal/abnormal. Lab Interpretation (test code = 92115-2) Normal [facility]. METABOLIC PANEL ([id number])2022-12-28 00:15:44* Test Item Value Reference Range Interpretation Comme nts NA (test code = 2158456859) 144 mmol/L 135-145 K (test code = 8903804284) 4.9 mmol/L 3.5-5.0 CL (test code = 1826597545) 101 mmol/L 98-108 CO2 TOTAL (test code = 4938410150) 32 mmol/L 23-31 H AGAP (test code = 8103753318) 11 2-16 BUN (test code = 9190561106) 14 mg/dL 7-23 GLUCOSE (test code = 5030131934) 94 mg/dL 70-110 CREATININE (test code = 0014515624) 1.16 mg/dL 0.60-1.25 TOTAL BILI (test code = 2845712045) 0.4 mg/dL 0.1-1.1 CALCIUM (test code = 8401156089) 9.4 mg/dL 8.6-10.6 T PROTEIN (test code = 8967910897) 7.7 g/dL 6.3-8.2 ALBUMIN (test code = 5218895634) 4.5 g/dL 3.5-5.0 ALK PHOS (test code = 5622533962) 105 U/L 34-122 ALTv (test code = 1742-6) 44 U/L 5-50 AST(SGOT) (test code = 5859269233) 48 U/L 13-40 H eGFR (test code = 1972027897) 69.0 mL/min/1.73m2 CARLOS (test code = CARLOS) Association of [...] or abnormalities in imaging tests). Lab Interpretation (test code = 95107-6) Abnormal [facility] METABOLIC PANEL (19722)2022-12-28 00:15:44* Test Item Value Reference Range Interpretation Comme nts NA (test code = 3342492302) 144 mmol/L 135-145 K (test code = 8092291094) 4.9 mmol/L 3.5-5.0 CL (test code = 9154109063) 101 mmol/L 98-108 CO2 TOTAL (test code = 4331066360) 32 mmol/L 23-31 H AGAP (test code = 0526552217) 11 2-16 BUN (test code = 5902599973) 14 mg/dL 7-23 GLUCOSE (test code = 2886884703) 94 mg/dL 70-110 CREATININE (test code = 2537324044) 1.16 mg/dL 0.60-1.25 TOTAL BILI (test code = 8873727724) 0.4 mg/dL 0.1-1.1 CALCIUM (test code = 1813958176) 9.4 mg/dL 8.6-10.6 T PROTEIN (test code = 4789930288) 7.7 g/dL 6.3-8.2 ALBUMIN (test code = 5610559359) 4.5 g/dL 3.5-5.0 ALK PHOS (test code = 8366569226) 105 U/L 34-122 ALTv (test code = 1742-6) 44 U/L 5-50 AST(SGOT) (test code = 2305673987) 48 U/L 13-40 H eGFR (test code = 5085498275) 69.0 mL/min/1.73m2 CARLOS (test code = CARLOS) Association of [...] or abnormalities in imaging tests). Lab Interpretation (test code = 88621-6) Abnormal [facility] WITH [id number] 22:30:50* Test Item Value Reference Range Interpretation Comme nts WBC (test code = 6690-2) 8.71 See_Comment [Automated [employer]] The system which generated this result transmitted reference range: 4.20 - 10.70 10*3/?L. The reference range was not used to interpret this result as normal/abnormal. RBC (test code = 789-8) 4.61 See_Comment [[employer]] The system which generated this result transmitted reference range: 4.26 - 5.52 10*6/?L. The reference range was not used to interpret this result as normal/abnormal. HGB (test code = 718-7) 13.8 g/dL 12.2-16.4 HCT (test code = 4544-3) 43.0 % 38.4-49.3 MCV (test code = 787-2) 93.3 fL 81.7-95.6 MCH (test code = 785-6) 29.9 pg 26.1-32.7 MCHC (test code = 786-4) 32.1 g/dL 31.2-35.0 RDW-SD (test code = 77008-6) 42.8 fL 38.5-51.6 RDW-CV (test code = 788-0) 12.4 % 12.1-15.4 PLT (test code = 777-3) 254 See_Comment [[employer]] The system which generated this result transmitted reference range: 150 - 328 10*3/?L. The reference range was not used to interpret this result as normal/abnormal. MPV (test code = 31041-6) 11.5 fL 9.8-13.0 NRBC/100 WBC (test code = 4864939583) 0.0 See_Comment [Automated me ssage] The system which generated this result transmitted reference range: 0.0 - 10.0 /100 WBCs. The reference range was not used to interpret this result as normal/abnormal. NRBC x10^3 (test code = 4817305834) See_Comment [Automated me ssage] The system which generated this result transmitted reference range: 10*3/?L. The reference range was not used to interpret this result as normal/abnormal. GRAN MAT (NEUT) % (test code = 770-8) 58.7 % IMM GRAN % (test code = 1480468369) 0.50 % LYMPH % (test code = 736-9) 27.9 % MONO % (test code = 5905-5) 10.0 % EOS % (test code = 713-8) 2.2 % BASO % (test code = 706-2) 0.7 % GRAN MAT x10^3(ANC) (test code = 2087414886) 5.12 10*3/uL 1.99-6.95 IMM GRAN x10^3 (test code = 0210929994) 0.04 10*3/uL 0.00-0.06 LYMPH x10^3 (test code = 731-0) 2.43 10*3/uL 1.09-3.23 MONO x10^3 (test code = 742-7) 0.87 10*3/uL 0.36-1.02 EOS x10^3 (test code = 711-2) 0.19 10*3/uL 0.06-0.53 BASO x10^3 (test code = 704-7) 0.06 10*3/uL 0.01-0.09 [facility] WITH [id number] 22:30:50* Test Item Value Reference Range Interpretation Comme nts WBC (test code = 6690-2) 8.71 See_Comment [Automated messa ge] The system which generated this result transmitted reference range: 4.20 - 10.70 10*3/?L. The reference range was not used to interpret this result as normal/abnormal. RBC (test code = 789-8) 4.61 See_Comment [Automated [employer]] The system which generated this result transmitted reference range: 4.26 - 5.52 10*6/?L. The reference range was not used to interpret this result as normal/abnormal. HGB (test code = 718-7) 13.8 g/dL 12.2-16.4 HCT (test code = 4544-3) 43.0 % 38.4-49.3 MCV (test code = 787-2) 93.3 fL 81.7-95.6 MCH (test code = 785-6) 29.9 pg 26.1-32.7 MCHC (test code = 786-4) 32.1 g/dL 31.2-35.0 RDW-SD (test code = 74157-5) 42.8 fL 38.5-51.6 RDW-CV (test code = 788-0) 12.4 % 12.1-15.4 PLT (test code = 777-3) 254 See_Comment [Automated [employer]] The system which generated this result transmitted reference range: 150 - 328 10*3/?L. The reference range was not used to interpret this result as normal/abnormal. MPV (test code = 17509-1) 11.5 fL 9.8-13.0 NRBC/100 WBC (test code = 6527325085) 0.0 See_Comment [Automated me ssage] The system which generated this result transmitted reference range: 0.0 - 10.0 /100 WBCs. The reference range was not used to interpret this result as normal/abnormal. NRBC x10^3 (test code = 8736649127) See_Comment [Automated me ssage] The system which generated this result transmitted reference range: 10*3/?L. The reference range was not used to interpret this result as normal/abnormal. GRAN MAT (NEUT) % (test code = 770-8) 58.7 % IMM GRAN % (test code = 4450866024) 0.50 % LYMPH % (test code = 736-9) 27.9 % MONO % (test code = 5905-5) 10.0 % EOS % (test code = 713-8) 2.2 % BASO % (test code = 706-2) 0.7 % GRAN MAT x10^3(ANC) (test code = 4692879052) 5.12 10*3/uL 1.99-6.95 IMM GRAN x10^3 (test code = 8597917990) 0.04 10*3/uL 0.00-0.06 LYMPH x10^3 (test code = 731-0) 2.43 10*3/uL 1.09-3.23 MONO x10^3 (test code = 742-7) 0.87 10*3/uL 0.36-1.02 EOS x10^3 (test code = 711-2) 0.19 10*3/uL 0.06-0.53 BASO x10^3 (test code = 704-7) 0.06 10*3/uL 0.01-0.09 [facility] Notes Date/Time Note Provider Source 2023-07-25 09:45:00 4EUHIP9bNFsTjZfrsBQ0 ohvsYF1s9+slN0 E5EE/rnBuS6iIJaeHdGSgXaS0waaSE7249 -03-08T09:45:00 Images from the original note were not included.Patient has been identified by and name and was provided with cup, antiseptic towelette, and clean catch instructions. 2 urine specimen(s) sent.Unpreserved 1Urine Culture 1Aptima tubeOther urine 25505-6Emano MnblXO0257-35-06E23:31:24Nurse NoteTXT1.2.840.052942.1.13.104.2.7 .2.552363|[id number] for patient qxva59436-2Djhww NoteLNNARRATIVEFormatted C-CDA narrative text[address] IysgPnhmgempqTprdmviohFSFL07944943 01AMSZPSMTYNGWUOKMPKAXRW7380-58-30 T09:31:241.2.840.410642.1.72.3.15| 1.2.840.948729.1.13.104.2.7.2.7278 79_[id number] [facility] 2023-07-18 14:54:16 deYvqrQFnZwsG6mWbyuF lytUwQDA29vvEv fdYPftCWfe4Dmk6YOMN85zrzDgO2824431 -03-01T14:54:16 Patient requesting to get SELF PAY estimate for CPT 85808. 29073-6Vhxesykys encounter AnehHK0098-62-31Q34:55:18Telephone encounter NoteTXT1.2.840.122441.1.13.104.2.7 .2.509294|[id number] for patient zavp20464-7JrizTGICKWMCOGDYodgzpid d C-CDA narrative [id number] L [address] Ue[id number] 17IHKHGWSLJYBEZVWGTCIRAB1960-00-01 T14:55:181.2.840.734323.1.72.3.15| 1.2.840.925503.1.13.104.2.7.2.7278 79_[id number] Claudine Tolentino Falcon [facility] 2023-07-18 14:51:25 opntLoIPtXU4edYu+zUf yieCJvr1A7cPOB ZG81s3Qe1bH5E9b8UR5oPeyciPR66l5455 -03-01T14:51:25 Bariatric Surgery Benefits VerificationDr. Jessa Portillo NPI [id number]. Anthony Dover NPI [id number] Providers Individual Tax ID: [id number] Tax ID: [id number] [facility] [address]3812Qf. [phone] Djpxunp Name: Gurpreet Davis : 1980 Carrier: [facility] Insurance #: [id number] ID: [id number] Ins Group#: [id number] need to verify benefits for bariatric surgery.CPT: 77403 - Laparoscopic Procedures on the StomachDiagnosis Code: E66.01 - Morbid (severe) obesity due to excess caloriesDate of New Patient Appt: CANCELEDBMI: ?4035-39 At least one comorbidity:30-35: Diabetes onlyName of security representative: Juhi Call reference number: [id number] does the patients insurance plan year start: 05/19/2023Is this a covered benefit under this patient's policy? NoCompleted by: CLAUDINE FALCON07/18/23 53355-1Yznoapbtk encounter VtwoKO9098-04-39S63:55:18Telephone encounter NoteTXT1.2.840.455281.1.13.104.2.7 .2.781424|[id number] for patient bgto41432-6GwolJKBPVFODBCVBjafpxob d C-CDA narrative text[address] CxuuNvncqidsjKxpbpgqikHZQB64202049 92BVIEJYDIHMXLQQWZMWBNXG0893-10-93 T14:55:181.2.840.559159.1.72.3.15| 1.2.840.440435.1.13.104.2.7.2.7278 79_[id number] [facility] 2023-07-15 13:17:48 ImjQMYNXLCtJaOtiaOvI ZW1U1fUrl65gt4 nuy0VQQKNiYKWG5Lr+JS6axXvHGMVw2274 -02-27T13:17:48 Pt has a scheduled appointment on 07/24. 14080-6Orhjsajvy encounter JfreFC2169-09-95D17:18:06Telephone encounter NoteTXT1.2.840.301438.1.13.104.2.7 .2.883432|[id number] for patient koag74551-8HujbNGDBBQEEQVNIhyihguz d C-CDA narrative scqq240102832Wfcxmsh Lc [id number] 80ESPKFYUXNJNQQQLUYGJDXL8807-13-78 T13:18:061.2.840.184157.1.72.3.15| 1.2.840.804014.1.13.104.2.7.2.7278 79_[id number] Dinora Diaz [facility] 2023-07-15 08:42:16 vN5K9SAojZ7bKyCqM6P1 wuNBuUpZpqsRq9 SDr1K0V8WyrpVv+tJ60q3U1BzC3PE+2023T08:42:16 Please schedule follow up next weekNeed to discuss abnormal labs and treatment 51971-0Gozjuphpm encounter NstiEC9008-81-08J25:42:34Telephone encounter NoteTXT1.2.840.664000.1.13.104.2.7 .2.376816|[id number] for patient bdzl87315-3ZacbKPSDFTXSLQUUqdckgrd d C-CDA narrative text[id number] 89ZEWMSIIFJNAGMDUXYAIPMZ7498-02-31 T08:42:341.2.840.116416.1.72.3.15| 1.2.840.156965.1.13.104.2.7.2.7278 [id number] [facility] 2023-06-28 10:45:00 H2kblhgi5TNztMpszbk4 xoTbS/OfShMtSA 6pgApOPJL3Uy2dtD99RZ0TGgpWTREj0439 -02-10T10:45:00 Images from the original note were not included.Venipuncture collection performed by clean technique on the left anticubitus. Total of 1 attempts were made. Slight pressure and a bandage/dressing were applied to the site(s). The patient experienced no complications. The following specimens were processed according to instructions and sent to [facility] laboratories per lab order on 06/28/2023:LT BLUESST 1REDLAV 2PPTDK GREEN (LiHep)DK GREEN (SodH)GRAYDK BLUE (K2)DK BLUE (S)ACDBlood CultureNIPT/NTDPatient has been identified by and name and was provided with cup, antiseptic towelette, and clean catch instructions. 1 urine specimen(s) sent.Unpreserved 1Urine CultureAptima tubeOther urine 20682-8Cakwv HputAY3316-99-81Z48:33:15Nurse NoteTXT1.2.840.997701.1.13.104.2.7 .2.029024|[id number] for patient wwes24150-5Jnqlg NoteLNNARRATIVEFormatted C-CDA narrative textUT[address] Rn[id number] 49OQTZOJAYCUGKKLMNLZCBLN3285-17-24 T08:33:151.2.840.135876.1.72.3.15| 1.2.840.265579.1.13.104.2.7.2.7278 [id number] [facility] 2023-06-27 15:15:00 gEYxADSMyZj6IUbnp/ls To4LMOg2Xn3H/9 7GL65PjKXFO77S/SeVbSe6DMe5KpzJ9736 -02-09T15:15:00 Pt not fasting and wants to come back another time. 98202-3Yyfye NthyUA5618-82-61N80:26:53Nurse NoteTXT1.2.840.992687.1.13.104.2.7 .2.463984|[id number] for patient qqyw88603-8Ytrps NoteLNNARRATIVEFormatted C-CDA narrative [id number] R Guajard[id number] 66YIBYXBJQSVWYLAWAAVZHSM5160-81-19 T15:26:531.2.840.908839.1.72.3.15| 1.2.840.713349.1.13.104.2.7.2.7278 [id number] Mary Turcios [facility] 2023-01-03 12:57:43 ybEA5msuB3zhHK0SoZJS WkjfyVaG07eMY1 aDiomqDtMmDCZTvY46VK/w7pWUukZ+2022T12:57:43 Spoke with patientHe denies any chest pain, weakness, shortness of breathGiven ER warnings to go if he does experience these symptomsWill start Coreg twice a dayTo continue other medicationsKeep BP log and keep follow up to reviewPatient verbalizes understanding 05861-4Roapseoxk encounter YcxpXD3867-38-48O23:00:28Telephone encounter NoteTXT1.2.840.312817.1.13.104.2.7 .2.462749|[id number] for patient pfyf78869-3OxgwSRJNAWFXBA[id number] 24JHSJEZVQTZOOYXHLEUMBFB9260-91-12 T13:00:281.2.840.576215.1.72.3.15| 1.2.840.231539.1.13.104.2.7.2.7278 [id number] [facility] 2023-01-03 12:46:40 XiKs2WK2thtBkLWEJ/dS EWnGQcLSBVhZGa DFOb0RHKEGEtD8WaojlOtsmzxV2mAE3370 -08-18T12:46:40 Patient states he checked his blood pressure 3 times. It was 169/105, 179/115 and the last time at 1244 pm it was 144/91. He is feeling dizzy and light headed. Nurse notified. 99035-3Myzvonqcj encounter MhnfSD0036-12-90M07:50:34Telephone encounter NoteTXT1.2.840.571850.1.13.104.2.7 .2.726416|[id number] for patient ngag55847-4RvniYC87897150Qsdtb S [id number] 91FTASGZOYCQYYXZFGDDBFGP1566-24-99 T12:50:341.2.840.757019.1.72.3.15| 1.2.840.864440.1.13.104.2.7.2.7278 [id number] Zunilda Buchanan Kali [facility] 2023-01-02 09:15:00 fBzzOtXUevfeF+thzMfJ L9nRJTF/af+dhE 5J6hvqsXlzBOhcnFMRCXqwiXt53HZf5017 -08-17T09:15:00 Images from the original note were not included.Per pt he is here to complete orders by Grisel Gillette FNP .Efren Liriano 01/02/2023 9:22 AMVenipuncture collection performed by clean technique on the left anticubitus. Total of 2 attempts were made. Slight pressure and a bandage/dressing were applied to the site(s). The patient experienced no complications. The following specimens were processed according to instructions and sent to [facility] laboratories per lab order on 01/02/2023: LT BLUE SST 1 RED LAV PPT DK GREEN (LiHep) DK GREEN (SodH) HERRERA DK BLUE (K2) DK BLUE (S) ACD Blood Culture NIPT/NTD 16046-5Edocj QsgxPI0184-59-86Z63:33:03Nurse NoteTXT1.2.840.358832.1.13.104.2.7 .2.472318|[id number] for patient yqui36342-1Vqjyl NoteUT[address] Heb[id number] 25CAKGFCQQKVJXMTEVUXBSAC3924-95-35 T09:33:031.2.840.736859.1.72.3.15| 1.2.840.801822.1.13.104.2.7.2.7278 [id number] [facility] 2022-12-27 17:00:00 DbaUCQkU1R0gwjajLs0v Z+H/7qG1E/CFSL 2gEIbszgE6kvjaKiDAu5hYeSwt/G6I7349T17:00:00 Images from the original note were not included.Pt will be returning for his Lipid Blood Draw. He would like to continue with all other labs. Efren Liriano 12/27/2022 4:56 PMVenipuncture collection performed by clean technique on the right anticubitus. Total of 2 attempts were made (Efren 1-no collection )(Shelly 2-blood draw collected). Slight pressure and a bandage/dressing were applied to the site(s). The patient experienced no complications. The following specimens were processed according to instructions and sent to [facility] laboratories per lab order on 12/27/2022: LT BLUE SST 1 RED LAV 2 PPT DK GREEN (LiHep) DK GREEN (SodH) HERRERA DK BLUE (K2) DK BLUE (S) ACD Blood Culture NIPT/NTD Patient has been identified by and name and was provided with cup, antiseptic towelette, and clean catch instructions. 1 urine specimen(s) sent. Unpreserved 1 Urine Culture Aptima tube Other urine 16151-8Fessm TrkwRN9403-26-26W46:12:35Nurse NoteTXT1.2.840.390730.1.13.104.2.7 .2.198000|[id number] for patient quud99897-2Bbxge NoteLNUT[address] YgslU[id number] 41NQCVZZLSTKKAYOKYZOEZAD1186-24-66 T17:12:351.2.840.793521.1.72.3.15| 1.2.840.365051.1.13.104.2.7.2.7278 [id number] [facility]"
[2023-08-02 20:28] LABS: Absolute Eosinophils 0.1 K/uL (0-0.5); Absolute Lymphocytes (CBC) 0.9 K/uL (0.7-4.9); Absolute Monocytes 0.6 K/uL (0.1-1.3); Absolute Neutrophil 8.1 K/uL (1.8-8.0); Basophils % 0.5 % (0-1.3); Eosinophils % 0.7 % (0-4.4); Hematocrit 40.5 % (39.6-49.0); Hemoglobin 13.6 g/dL (13.6-17.9); Lymphocytes % 9.5 % (15.3-44.8); MCH 29.9 pg (27.0-35.0); MCHC 33.6 g/dL (32.0-36.0); MPV 9.6 fL (7.6-11.3); Monocytes % 5.8 % (3.3-12.3); Neutrophils % 83.5 % (41.7-73.7); Nucleated Red Blood Cells % 0.1 % (0-0); Platelets 212 thou/uL (152-406); RBC Red Blood Cell Count 4.56 M/uL (4.33-5.43)
--- NOTE | 2023-08-02 20:57 | RAD REPORT ---
EXAM DESCRIPTION: US - Abdomen Exam Limited - 08/02/2023 8:44 pm CLINICAL HISTORY: ABD PAIN COMPARISON: No comparisons FINDINGS: The gallbladder demonstrates no gallstones. No pericholecystic fluid or gallbladder wall t hickening. The common bile duct is normal measuring 2-3 mm. The liver demonstrates no findings of intrahepatic biliary dilatation. IMPRESSION: Unremarkable examination.
[2023-08-02 21:19] LABS: Albumin 3.7 g/dL (3.4-5.0); Albumin/Globulin Ratio 0.9 (1.1-1.8); Anion Gap 9.4 mEq/L (5.0-15.0); Bilirubin Total 0.5 mg/dL (0.2-1.0); Globulin 4.1 g/dL (2.3-3.5); Potassium 3.4 mEq/L (3.5-5.1); Protein, Total 7.8 g/dL (6.4-8.2)
[2023-08-02 23:23] LABS: Specific Gravity 1.017 (1.005-1.030); Sqamous Epithelial <5 /HPF (None Seen); Urine Bacteria None Seen /HPF (<20); Urine Bilirubin NEGATIVE (Negative); Urine Blood 1+ (Negative); Urine Clarity Clear (Clear); Urine Color Light-Yellow (Yellow); Urine Crystals Unidentified Few /HPF (None Seen); Urine Culture Reflex Order REFLEXED; Urine Glucose NEGATIVE (Negative); Urine Ketones NEGATIVE (Negative); Urine Microscopic Reflex YN ORDER UMIC; Urine Mucus Slight /HPF (None Seen); Urine Nitrite NEGATIVE (Negative); Urine Protein NEGATIVE (Negative); Urine Urobilinogen Normal (Normal); Urine WBC Clump Rare /HPF (None Seen); Urine Yeast (Budding) Trace /HPF (None Seen); Urine pH 5.5 (5.0-7.0)
--- NOTE | 2023-08-02 23:27 | EDPHYS ---
Physician Documentation [facility] Name: Gurpreet Davis Age: 43 yrs Sex: Male : 1980 Arrival Date: 08/02/2023 Time: 19:48 Bed 5 Private MD: Keyla Elias ED Physician Burke Romo HPI: 08/01 22:48 This 43 yrs old Black Male presents to ER via Ambulatory with complaints of kb Vomiting/Diarrhea. 22:48 Pt is a 43 year old male who presents for vomiting, diarrhea and upper abd pain that kb started this morning. Denies fever, abd tenderness. . Historical: - Allergies: 19:56 No Known Allergies; rv - PMHx: 19:56 Hypertensive disorder; rv - PSHx: 19:56 None; rv - Immunization history:: Adult Immunizations up to date. - Social history:: Smoking status: Patient denies any tobacco usage or history of. ROS: 22:47 Constitutional: As per HPI kb Exam: 22:47 Constitutional: This is a well developed, well nourished patient who is awake, alert, kb and in no acute distress. Head/Face: Normocephalic, atraumatic. ENT: Moist Mucous membranes Cardiovascular: Regular rate Respiratory: Respirations even and unlabored. No increased work of breathing. Talking in full sentences Skin: Warm, dry with normal turgor. Normal color. MS/ Extremity: Pulses equal, no cyanosis. Neurovascular intact. Full, normal range of motion. Neuro: Awake and alert, GCS 15, oriented to person, place, time, and situation. Moves all extremities. Normal gait. 22:47 Abdomen/GI: Inspection: obese Bowel sounds: normal, Palpation: abdomen is soft and non-tender, Vital Signs: 19:55 BP 137 / 73; Pulse 90; Resp 18; Temp 98; Pulse Ox 96% ; Weight 188.24 kg; Height 5 ft. rv 6 in. ; 20:04 BP 153 / 74; Pulse 90; Resp 16; Pulse Ox 96% on R/A; jb4 21:07 BP 136 / 79; Pulse 90; Resp 16; Pulse Ox 94% on R/A; jb4 19:55 Body Mass Index 66.98 (188.24 kg, 167.64 cm) rv MDM: 20:04 Patient medically screened. kb 22:48 Data reviewed: vital signs, nurses notes. kb 22:48 Differential diagnosis: Nonspecific abd pain, gastritis, viral gastroenteritis. kb 22:49 Counseling: I had a detailed discussion with the patient and/or guardian regarding the kb historical points, exam findings, and any diagnostic results supporting the discharge/admit diagnosis, lab results, radiology results, the need for outpatient follow up, a family practitioner, to return to the emergency department if symptoms worsen or persist or if there are any questions or concerns that arise at home. 08/01 20:08 Order name: CBC with Diff; Complete Time: 20:40 kb 08/01 20:08 Order name: CMP; Complete Time: 21:20 kb 08/01 20:08 Order name: Lipase; Complete Time: 21:20 kb 08/01 22:53 Order name: Urinalysis w/ reflexes; Complete Time: 23:25 kb 08/01 23:27 Order name: Urine Culture EDMS 08/01 20:08 Order name: US Abdomen Limited; Complete Time: 20:59 kb 08/01 20:08 Order name: IV Saline Lock; Complete Time: 20:31 kb 08/01 20:08 Order name: Labs collected and sent; Complete Time: 20:32 kb 08/01 22:13 Order name: PO challenge; Complete Time: 22:35 kb Administered Medications: 20:53 Drug: NS 0.9% IV 1000 ml IV at 1 bolus Per protocol; 1000 mL bolus Route: IV; Rate: 1 jb4 bolus; Site: right antecubital; 20:53 Drug: Famotidine IVP 20 mg IVP once; dilute with 10 mL 0.9% NaCl; give over 2 minutes jb4 Route: IVP; Site: right antecubital; 20:53 Drug: Dicyclomine PO 20 mg PO once Route: PO; jb4 20:54 Drug: Ondansetron IVP 4 mg IVP once; over 2 minutes Route: IVP; Site: right antecubital;jb4 22:02 Drug: Ondansetron IVP 4 mg IVP once; over 2 minutes Route: IVP; Site: right antecubital;jb4 Disposition Summary: 08/02/23 23:26 Discharge Ordered Notes: Location: Home kb Condition: Stable kb Diagnosis - Vomiting kb - Diarrhea, unspecified kb - Hematuria, unspecified kb Followup: kb - With: Emergency Department - When: As needed - Reason: Worsening of condition Followup: kb - With: Private Physician - When: 2 - 3 days - Reason: Recheck today's complaints, Continuance of care, Re-evaluation by your physician Discharge Instructions: - Discharge Summary Sheet kb - Food Choices to Help Relieve Diarrhea, Adult kb - Hematuria, Adult kb - Nausea and Vomiting, Adult, Ylza-ws-Tchr kb - Diarrhea, Adult, Palm-yr-Qekv kb Forms: - Work release form kb - Medication Reconciliation Form kb - Thank You Letter kb - Antibiotic Education kb - Prescription Opioid Use kb - Patient Portal Instructions kb - Leadership Thank You Letter kb Prescriptions: - ondansetron 4 mg Oral Tablet,disintegrating - take 1 tablet ORAL route every 6 hours As needed; 12 tablet; Refills: 0, kb Product Selection Permitted - Augmentin 875-125 mg Oral Tablet - take 1 tablet ORAL route every 12 hours for 10 days; 20 tablet; Refills: 0, kb Product Selection Permitted - dicyclomine 20 mg Oral tablet - take 1 tablet ORAL route 4 times per day As needed; 20 tablet; Refills: 0, kb Product Selection Permitted Signatures: Dispatcher [employer] Denisse Heredia, TITRATOR-C TITRATOR-Chetan Brambila, RN RN jb4 Markel Hughes, RN RN rv
--- NOTE | 2023-08-02 23:27 | ER ---
Nurse's Notes [facility] Name: Gurpreet Davis Age: 43 yrs Sex: Male : 1980 Arrival Date: 08/02/2023 Time: 19:48 Bed 5 Private MD: Keyla Elias Diagnosis: Vomiting;Diarrhea, unspecified;Hematuria, unspecified Presentation: 08/01 19:55 Chief complaint: Patient states: ate brisket last night, woke up with nausea and rv vomiting today with diarrhea. denies abd pain. Coronavirus screen: At this time, the client does not indicate any symptoms associated with coronavirus-19. Ebola Screen: No symptoms or risks identified at this time. Initial Sepsis Screen: Does the patient meet any 2 criteria? No. Patient's initial sepsis screen is negative. Does the patient have a suspected source of infection? No. Patient's initial sepsis screen is negative. Risk Assessment: Do you want to hurt yourself or someone else? Patient reports no desire to harm self or others. Onset of symptoms was August 02, 2023. 19:55 Method Of Arrival: Ambulatory rv 19:55 Acuity: YURY 3 rv Triage Assessment: 19:56 General: Appears in no apparent distress. Behavior is calm, cooperative. Pain: Denies rv pain. Neuro: Level of Consciousness is awake, alert, obeys commands, Oriented to person, place, time, situation. Cardiovascular: Capillary refill < 3 seconds Patient's skin is warm and dry. Respiratory: Airway is patent Respiratory effort is even, unlabored. GI: Reports diarrhea, nausea, vomiting. : No signs and/or symptoms were reported regarding the genitourinary system. Derm: Skin is intact. Historical: - Allergies: 19:56 No Known Allergies; rv - PMHx: 19:56 Hypertensive disorder; rv - PSHx: 19:56 None; rv - Immunization history:: Adult Immunizations up to date. - Social history:: Smoking status: Patient denies any tobacco usage or history of. Screenin:57 [facility] ED Fall Risk Assessment (Adult) History of falling in the last 3 months, rv including since admission No falls in past 3 months (0 pts) Score/Fall Risk Level 0 - 2 = Low Risk Oriented to surroundings, Maintained a safe environment, Educated pt \T\ family on fall prevention, incl call for assistance when getting out of bed, Assessed \T\ reinforced patient's understanding of fall precautions. Abuse screen: Denies threats or abuse. Denies injuries from another. Nutritional screening: No deficits noted. Tuberculosis screening: No symptoms or risk factors identified. Assessment: 20:04 General: Appears in no apparent distress. comfortable, Behavior is calm, cooperative, jb4 appropriate for age. Pain: Denies pain. Neuro: Level of Consciousness is awake, alert, obeys commands, Oriented to person, place, time, situation. Cardiovascular: Patient's skin is warm and dry. Respiratory: Airway is patent Respiratory effort is even, unlabored, Respiratory pattern is regular, symmetrical. GI: Abdomen is non-distended, obese, Reports diarrhea, nausea. : No signs and/or symptoms were reported regarding the genitourinary system. EENT: No signs and/or symptoms were reported regarding the EENT system. Derm: Skin is intact, Skin is pink, warm \T\ dry. Skin temperature is. Musculoskeletal: Circulation, motion, and sensation intact. Range of motion: intact in all extremities. 21:07 Reassessment: Patient appears in no apparent distress at this time. Patient and/or jb4 family updated on plan of care and expected duration. Pain level reassessed. Patient is alert, oriented x 3, equal unlabored respirations, skin warm/dry/pink. 22:00 Reassessment: Patient appears in no apparent distress at this time. Patient and/or jb4 family updated on plan of care and expected duration. Pain level reassessed. Patient is alert, oriented x 3, equal unlabored respirations, skin warm/dry/pink. 23:00 Reassessment: Patient appears in no apparent distress at this time. Patient and/or jb4 family updated on plan of care and expected duration. Pain level reassessed. Patient is alert, oriented x 3, equal unlabored respirations, skin warm/dry/pink. Vital Signs: 19:55 BP 137 / 73; Pulse 90; Resp 18; Temp 98; Pulse Ox 96% ; Weight 188.24 kg; Height 5 ft. rv 6 in. ; 20:04 BP 153 / 74; Pulse 90; Resp 16; Pulse Ox 96% on R/A; jb4 21:07 BP 136 / 79; Pulse 90; Resp 16; Pulse Ox 94% on R/A; jb4 19:55 Body Mass Index 66.98 (188.24 kg, 167.64 cm) rv ED Course: 19:51 Patient arrived in ED. mr 19:51 Curt Keyla is Private Physician. mr 19:52 Nakul Denisse, BRYAN is [facility]. cm10 19:56 Triage completed. rv 19:56 Arm band placed on right wrist. rv 19:57 Patient has correct armband on for positive identification. Client placed on continuous rv cardiac and pulse oximetry monitoring. NIBP monitoring applied. 19:57 No provider procedures requiring assistance completed. rv 20:00 Provided Education on: wait times for lab results. jb4 20:04 Burke Romo MD is Attending Physician. kb 20:31 CMP Sent. jb4 20:32 Lipase Sent. jb4 20:46 US Abdomen Limited In Process Unspecified. EDMS 21:07 Chetan Miles, RN is Primary Nurse. jb4 23:35 IV discontinued, intact, bleeding controlled, No redness/swelling at site. Pressure jb4 dressing applied. Administered Medications: 20:53 Drug: NS 0.9% IV 1000 ml IV at 1 bolus Per protocol; 1000 mL bolus Route: IV; Rate: 1 jb4 bolus; Site: right antecubital; 20:53 Drug: Famotidine IVP 20 mg IVP once; dilute with 10 mL 0.9% NaCl; give over 2 minutes jb4 Route: IVP; Site: right antecubital; 20:53 Drug: Dicyclomine PO 20 mg PO once Route: PO; jb4 20:54 Drug: Ondansetron IVP 4 mg IVP once; over 2 minutes Route: IVP; Site: right antecubital;jb4 22:02 Drug: Ondansetron IVP 4 mg IVP once; over 2 minutes Route: IVP; Site: right antecubital;jb4 Medication: 19:57 VIS not applicable for this client. rv Outcome: 23:26 Discharge ordered by . kb 23:35 Discharged to home ambulatory, jb4 23:35 Condition: stable 23:35 Discharge instructions given to patient, Instructed on discharge instructions, follow up and referral plans. medication usage, Demonstrated understanding of instructions, follow-up care, medications, Prescriptions given X 3, 23:35 Patient left the ED. jb4 Signatures: Dispatcher [employer] EDMS Nakul, Denisse, BREAKER LAYER-C BREAKER LAYER-Ckb [place], Maya, [facility] mr Chetan Miles, RN RN jb4 Markel Hughes, RN RN rv Cristina Stephens, RN RN cm10
[2023-08-02 23:46] VITALS: TEMP 98
[2023-08-03 00:28] VITALS: BP 136/79; O2SAT 94
== END ==
LOC: ER 19:48
DX: R11.10 Vomiting, unspecified (principal); R19.7 Diarrhea, unspecified; R31.9 Hematuria, unspecified; R10.10 Upper abdominal pain, unspecified
CPT/HCPCS: 87088; 85025; 81001; 87086; 36415; 83690; 80053; 76705; 96375; 96374; 99284; J2405 ×2; J7030

== ENCOUNTER 2023-11-04 14:42 | Emergency (ER) | payer OTHER ==
--- NOTE | 2023-11-04 15:32 | RAD REPORT ---
EXAM DESCRIPTION: RAD - Chest Single View - 11/04/2023 3:24 pm CLINICAL HISTORY: DYSPNEA Chest pain. COMPARISON: Chest Single View dated 12/25/2022 FINDINGS: Portable technique limits examination quality. The lungs are grossly clear. The heart is normal in size. No displaced fractures. IMPRESSION: No acute intrathoracic process suspected.
--- NOTE | 2023-11-04 15:35 | RAD REPORT ---
EXAM DESCRIPTION: RAD - Ribs Right - 11/04/2023 3:24 pm CLINICAL HISTORY: rib pain Rib pain and swelling COMPARISON: Chest Single View dated 11/04/2023 FINDINGS: No evidence of rib fracture. No aggressive rib lesion.
[2023-11-04 15:48] LABS: Absolute Eosinophils 0.1 K/uL (0-0.5); Absolute Lymphocytes (CBC) 1.5 K/uL (0.7-4.9); Absolute Neutrophil 6.4 K/uL (1.8-8.0); Basophils % 0.5 % (0-1.3); Eosinophils % 1.5 % (0-4.4); Hematocrit 40.3 % (39.6-49.0); Hemoglobin 13.1 g/dL (13.6-17.9); Lymphocytes % 16.9 % (15.3-44.8); MCH 28.7 pg (27.0-35.0); MCHC 32.4 g/dL (32.0-36.0); MCV 88.5 fL (80-100); MPV 10.3 fL (7.6-11.3); Monocytes % 10.7 % (3.3-12.3); Neutrophils % 70.4 % (41.7-73.7); Platelets 220 thou/uL (152-406); RBC Red Blood Cell Count 4.56 M/uL (4.33-5.43); Red Cell Distribution Width 13.6 % (12.1-15.2)
--- OUTSIDE RECORDS SUMMARY | 2023-11-04 15:52 | XMS REPORT | Continuity of Care Document ---
Author Name Unknown Address [address] [facility] [address] [place] [address] [facility] thconnect Address [address] [facility] [address] [place] [address] Care Team Providers Care Sandwich Board Carrier Name Role Phone Grisel Camara Primary Care Physician + [phone] Grisel Camara Attending Clinician + [phone] GRISEL GILLETTE Attending Clinician Unavailable Pob, Adc Lab Main Attending Clinician UnavailRICKY Avelar Attending Clinician Unavailable 2, Adc Lab Attending Clinician Unavailable ANTHONY DOVER Attending Clinician UnavailAnthony Waite MD Attending Clinician [phone] Rosa Maria Agee Attending Clinician [phone] ROSA MARIA NEWSOME Attending Clinician Unavaila ble Doctor Unassigned, Newcomb Attending Clinician U MONIQUE Rand Attending Clinician Unavailable PAULA GONSALES Attending Clinician Unavailab Paula Amezcua DO Attending Clinician [phone] Carol FIELD, Mariza Arias Attending Clinician Unavailab costa Payers Payer Name Policy Type Policy Number Effective Date Expirati on Date Source Problems Condition Name Condition Details Condition Category Status Onset Date Resolution Date Last Treatment Date Treating Clinician Comments Source No known active problems No known active problems Disease [facility] Allergies, Adverse Reactions, Alerts Allergy Name Allergy Type Status Severity Reaction(s) Onset Date Inactive Date Treating Clinician Comments Source NO KNOWN ALLERGIE S Drug Class Active [facility] Social History Social Habit Start Date Stop Date Quantity Comments Source Gender identity [facility] Exposure to SARS-CoV-2 (event) 2022-06-17 00:00:00 2022-06-27 14:15:00 Not sure [facility] Alcoholic beverage intake 2022-06-27 00:00:00 2022-06-27 00:00:00 Lifetime non-drinker (finding) [facility] Alcohol intake 2022-06-27 00:00:00 2022-06-27 00:00:00 Lifetime non-drinker (finding) [facility] History of Social function 2022-06-27 00:00:00 2022-06-27 00:00:00 [facility] Sex assigned at 1980 00:00:00 1980 00:00:00 [facility] Smoking Status Start Date Stop Date Source Tobacco smoking consumption unknown [facility] Medications Ordered Medication Name Filled Medication Name Start Date Stop Date Current Medication? Ordering Clinician Indication Dosage Frequency Signature (SIG) Comments Components Source amLODIPine (NORVASC) 10 mg tablet 10-19 00:00: 00 Yes [id number] 10mg Take 1 tablet by mouth in the morning. [facility] carvediloL (COREG) 25 mg tablet 10-19 00:00: 00 Yes [id number] 25mg Take 1 tablet by mouth in the morning and 1 tablet in the evening. Take with meals. [facility] hydroCHLORO thiazide 25 mg tablet 10-19 00:00: 00 Yes [id number] 25mg Take 1 tablet by mouth in the morning. [facility] levothyroxi ne 25 mcg tablet 10-19 00:00: 00 Yes [id number] 25ug Take 1 tablet by mouth every morning. [facility] tadalafiL (CIALIS) 20 mg tablet 07-30 00:00: 00 Yes [id number] 20mg Take 1 tablet by mouth as needed for Erectile dysfunctio n. [facility] metFORMIN 500 mg tablet 07-24 00:00: 00 10-19 00:00 :00 No [id number] 500mg Take 1 tablet by mouth in the morning and 1 tablet in the evening. Take with meals. [facility] levothyroxi ne 25 mcg tablet 3-08 00:00: 00 10-19 00:00 :00 No [id number] 25ug Take 1 tablet by mouth every morning. [facility] amLODIPine (NORVASC) 10 mg tablet 2-09 00:00: 00 10-19 00:00 :00 No [id number] 10mg Take 1 tablet by mouth in the morning. [facility] carvediloL (COREG) 25 mg tablet 2-09 00:00: 00 10-19 00:00 :00 No [id number] 25mg Take 1 tablet by mouth in the morning and 1 tablet in the evening. Take with meals. [facility] hydroCHLORO thiazide 25 mg tablet 2-09 00:00: 00 10-19 00:00 :00 No [id number] 25mg Take 1 tablet by mouth in the morning. [facility] carvediloL (COREG) 25 mg tablet 2022-05 0-09 00:00: 00 06-27 00:00 :00 No [id number] 25mg Take 1 tablet by mouth in the morning and 1 tablet in the evening. Take with meals. [facility] amLODIPine (NORVASC) 10 mg tablet 2022-05 0-09 00:00: 00 06-27 00:00 :00 No [id number] 10mg Take 1 tablet by mouth in the morning. [facility] hydroCHLORO thiazide 25 mg tablet 2022-05 0-09 00:00: 00 06-27 00:00 :00 No [id number] 25mg Take 1 tablet by mouth in the morning. [facility] carvediloL (COREG) 12.5 mg tablet 8-25 00:00: 00 02-24 00:00 :00 No [id number] 12.5mg Take 1 tablet by mouth in the morning and 1 tablet in the evening. Take with meals. [facility] carvediloL (COREG) 6.25 mg tablet 8-18 00:00: 00 01-10 00:00 :00 No [id number] 6.25mg Take 1 tablet by mouth in the morning and 1 tablet in the evening. Take with meals. [facility] amLODIPine (NORVASC) 10 mg tablet 8-11 00:00: 00 02-24 00:00 :00 No [id number] 10mg Take 1 tablet by mouth in the morning. [facility] hydroCHLORO thiazide 25 mg tablet 8-11 00:00: 00 02-24 00:00 :00 No [id number] 25mg Take 1 tablet by mouth in the morning. [facility] amLODIPine (NORVASC) 5 mg tablet 2-09 00:00: 00 12-27 00:00 :00 No [id number] 5mg Take 1 tablet by mouth in the morning. [facility] amLODIPine (NORVASC) tablet 5 mg 1-10 13:00: 00 05-28 12:20 :00 No 5mg 5 mg, Oral, ONCE, 1 dose, On Fri05/28/22 at 0700, Routine [facility] amLODIPine (NORVASC) 5 mg tablet 1-10 00:00: 00 06-27 00:00 :00 No [id number] 5mg Take 1 tablet by mouth in the morning. [facility] Vital Signs Vital Name Observation Time Observation Value Comments S elisabeth Systolic blood pressure 2023-10-20 13:04:00 145 mm[Hg] [facility] Diastolic blood pressure 2023-10-20 13:04:00 90 mm[Hg] [facility] Heart rate 2023-10-20 13:04:00 74 /min [facility] Body temperature 2023-10-20 13:04:00 36.33 Zenaida [facility] Body weight 2023-10-20 13:04:00 194.593 kg [facility] BMI 2023-10-20 13:04:00 65.23 kg/m2 [facility] Oxygen saturation in Arterial blood by Pulse oximetry 2023-10-20 13:04:00 95 /min [facility] Systolic blood pressure 2023-07-31 14:51:00 141 mm[Hg] [facility] Diastolic blood pressure 2023-07-31 14:51:00 89 mm[Hg] [facility] Heart rate 2023-07-31 14:50:00 75 /min [facility] Body temperature 2023-07-31 14:50:00 36.67 Zenaida [facility] Respiratory rate 2023-07-31 14:50:00 18 /min [facility] Body height 2023-07-31 14:50:00 172.7 cm [facility] Body weight 2023-07-31 14:50:00 188.56 kg [facility] BMI 2023-07-31 14:50:00 63.21 kg/m2 [facility] Oxygen saturation in Arterial blood by Pulse oximetry 2023-07-31 14:50:00 94 /min [facility] Systolic blood pressure 2023-07-25 14:50:00 141 mm[Hg] has not taken bp meds this morning. [facility] Diastolic blood pressure 2023-07-25 14:50:00 81 mm[Hg] has not taken bp meds this morning. [facility] Heart rate 2023-07-25 14:50:00 77 /min [facility] Body temperature 2023-07-25 14:50:00 36.89 Zenaida [facility] Respiratory rate 2023-07-25 14:50:00 19 /min [facility] Body height 2023-07-25 14:50:00 167.6 cm [facility] Body weight 2023-07-25 14:50:00 188.606 kg [facility] BMI 2023-07-25 14:50:00 67.11 kg/m2 [facility] Oxygen saturation in Arterial blood by Pulse oximetry 2023-07-25 14:50:00 98 /min [facility] Systolic blood pressure 2023-06-27 20:50:00 138 mm[Hg] [facility] Diastolic blood pressure 2023-06-27 20:50:00 88 mm[Hg] [facility] Heart rate 2023-06-27 20:50:00 81 /min [facility] Body height 2023-06-27 20:50:00 167.6 cm [facility] Body weight 2023-06-27 20:50:00 184.75 kg [facility] BMI 2023-06-27 20:50:00 65.74 kg/m2 [facility] Oxygen saturation in Arterial blood by Pulse oximetry 2023-06-27 20:50:00 96 /min [facility] Systolic blood pressure 2023-02-24 13:22:00 171 mm[Hg] [facility] Diastolic blood pressure 2023-02-24 13:22:00 82 mm[Hg] [facility] Heart rate 2023-02-24 13:22:00 71 /min [facility] Body height 2023-02-24 13:22:00 167.6 cm [facility] Body weight 2023-02-24 13:22:00 177.13 kg [facility] BMI 2023-02-24 13:22:00 63.03 kg/m2 [facility] Oxygen saturation in Arterial blood by Pulse oximetry 2023-02-24 13:20:00 97 /min [facility] Systolic blood pressure 2023-01-10 18:18:00 136 mm[Hg] [facility] Diastolic blood pressure 2023-01-10 18:18:00 72 mm[Hg] [facility] Heart rate 2023-01-10 18:17:00 72 /min [facility] Body temperature 2023-01-10 18:17:00 36.11 Zenaida [facility] Respiratory rate 2023-01-10 18:17:00 18 /min [facility] Body height 2023-01-10 18:17:00 170.2 cm [facility] Body weight 2023-01-10 18:17:00 178.899 kg [facility] BMI 2023-01-10 18:17:00 61.77 kg/m2 [facility] Oxygen saturation in Arterial blood by Pulse oximetry 2023-01-10 18:17:00 96 /min [facility] Systolic blood pressure 2022-12-27 21:21:00 141 mm[Hg] [facility] Diastolic blood pressure 2022-12-27 21:21:00 91 mm[Hg] [facility] Heart rate 2022-12-27 21:19:00 87 /min [facility] Body temperature 2022-12-27 21:19:00 36.44 Zenaida [facility] Respiratory rate 2022-12-27 21:19:00 16 /min [facility] Body weight 2022-12-27 21:19:00 176.767 kg [facility] BMI 2022-12-27 21:19:00 62.90 kg/m2 [facility] Oxygen saturation in Arterial blood by Pulse oximetry 2022-12-27 21:19:00 97 /min [facility] Systolic blood pressure 2022-06-27 20:36:00 130 mm[Hg] [facility] Diastolic blood pressure 2022-06-27 20:36:00 78 mm[Hg] [facility] Heart rate 2022-06-27 20:36:00 82 /min [facility] Body height 2022-06-27 20:36:00 167.6 cm [facility] Body weight 2022-06-27 20:36:00 175.542 kg [facility] BMI 2022-06-27 20:36:00 62.46 kg/m2 [facility] Oxygen saturation in Arterial blood by Pulse oximetry 2022-06-27 20:36:00 97 /min [facility] Systolic blood pressure 2022-05-28 12:10:00 166 mm[Hg] [facility] Diastolic blood pressure 2022-05-28 12:10:00 104 mm[Hg] [facility] Heart rate 2022-05-28 12:10:00 67 /min [facility] Body temperature 2022-05-28 12:10:00 36.5 Zenaida [facility] Respiratory rate 2022-05-28 12:10:00 22 /min [facility] Body height 2022-05-28 12:10:00 167.6 cm [facility] Body weight 2022-05-28 12:10:00 174.635 kg [facility] BMI 2022-05-28 12:10:00 62.14 kg/m2 [facility] Oxygen saturation in Arterial blood by Pulse oximetry 2022-05-28 12:10:00 99 /min [facility] Procedures Procedure Date / Time Performed Performing Clinician Source DUPLEX VENOUS LEGS BILATERAL - BY VASCULAR LAB 2023-10-21 15:37:26 Grisel Gillette [facility] GLYCOSYLATED HEMOGLOBIN (A1C) 2023-10-20 14:32:00 Grisel Gillette [facility] CONSENT/REFUSAL FOR DIAGNOSIS AND TREATMENT 2023-06-27 20:31:49 Doctor Unassigned, Newcomb [facility] PATIENT QUESTIONNAIRE 2023-02-18 05:01:00 Doctor Unassigned, Newcomb [facility] FREE T4 2022-12-27 22:07:00 Grisel Gillette [facility] THYROID STIMULATING HORMONE 2022-12-27 22:07:00 Grisel Gillette [facility] COMP. METABOLIC PANEL ([id number]) 2022-12-27 22:07:00 Grisel Gillette [facility] CBC WITH DIFF 2022-12-27 22:07:00 Grisel Gillette [facility] GLYCOSYLATED HEMOGLOBIN (A1C) 2022-12-27 22:07:00 Grisel Gillette [facility] URINALYSIS 2022-12-27 22:07:00 Grisel Gillette [facility] ASSIGNMENT OF BENEFITS 2022-06-27 20:16:49 Docto r Unassigned, Newcomb [facility] NOTICE OF PRIVACY PRACTICES 2022-05-28 12:04:25 Doctor Unassigned, Newcomb [facility] CONSENT/REFUSAL FOR DIAGNOSIS AND TREATMENT 2022-05-28 12:00:20 Doctor Unassigned, Newcomb [facility] Encounters Start Date/Time End Date/Time Encounter Type Admission Type Attending Clinicians Care Facility Care Department Encounter ID Source 2023-11-04 00:00:00 2023-11-04 12:43:37 Telephone Grisel Gillette [facility] 1.2.840.114 350.1.13.10 4.2.7.2.686 [id number] [facility] 2023-10-24 10:00:00 2023-10-24 10:00:00 Outpatient R GRISEL GILLETTE [facility] [id number] [facility] 2023-10-22 00:00:00 2023-10-22 14:11:59 [facility] 1.2.840.114 350.1.13.10 4.2.7.2.686 [id number] [facility] 2023-10-21 07:37:25 2023-10-21 23:59:00 Outpatient R GRISEL GILLETTE [facility] [id number] [facility] 2023-10-21 07:37:25 2023-10-21 23:59:00 Hospital Encounter Grisel Gillette [facility] 1.2.840.114 350.1.13.10 4.2.7.2.686 [id number] [facility] 2023-10-21 07:45:00 2023-10-21 08:00:00 Lead Sustainability Specialist Visit Pob, [facility] 1.2.840.114 350.1.13.10 4.2.7.2.686 [id number] [facility] 2023-10-20 09:30:00 2023-10-20 09:45:00 Lead Sustainability Specialist Visit Pob, Adc Lab [facility] Grisel Gillette [facility] 1.2.840.114 350.1.13.10 4.2.7.2.686 [id number] [facility] 2023-10-20 08:00:00 2023-10-20 09:18:55 Outpatient R GRISEL GILLETTE [facility] [id number] [facility] 2023-10-20 08:00:00 2023-10-20 09:18:55 [facility] 1.2.840.114 350.1.13.10 4.2.7.2.686 [id number] [facility] 2023-09-25 08:00:00 2023-09-25 08:00:00 Outpatient R GRISEL GILLETTE [facility] [id number] [facility] 2023-08-15 15:00:00 2023-08-15 15:00:00 Outpatient R RICKY OCHOA [facility] [id number] [facility] 2023-08-04 08:20:00 2023-08-04 08:20:00 Outpatient R GRISEL GILLETTE [facility] [id number] [facility] 2023-07-31 10:00:00 2023-07-31 10:06:37 Outpatient R GRISEL GILLETTE [facility] [id number] [facility] 2023-07-31 10:00:00 2023-07-31 10:06:37 Office Visit Grisel Gillette [facility] 1.2.840.114 350.1.13.10 4.2.7.2.686 [id number] [facility] 2023-07-25 09:45:00 2023-07-25 10:00:00 Lead Sustainability Specialist Visit 2, Adc Lab Rusty Gillettessica [facility] 1.2.840.114 350.1.13.10 4.2.7.2.686 [id number] [facility] 2023-07-25 09:00:00 2023-07-25 09:06:18 Outpatient R GRISEL GILLETTE [facility] [id number] [facility] 2023-07-25 09:00:00 2023-07-25 09:06:18 [facility] 1.2.840.114 350.1.13.10 4.2.7.2.686 [id number] [facility] 2023-07-21 08:30:00 2023-07-21 08:30:00 Outpatient R ANTHONY DOVER [facility] [id number] [facility] 2023-07-18 00:00:00 2023-07-18 00:00:00 Telephone Anthony Dover [facility] 1.2.840.114 350.1.13.10 4.2.7.2.686 [id number] [facility] 2023-07-15 00:00:00 2023-07-15 00:00:00 Telephone Grisel Gillette [facility] 1.2.840.114 350.1.13.10 4.2.7.2.686 [id number] [facility] 2023-06-28 10:45:00 2023-06-28 11:00:00 Lead Sustainability Specialist Visit Pob, Adc Lab Main Rosa Maria Newsome [facility] 1.2.840.114 350.1.13.10 4.2.7.2.686 [id number] [facility] 2023-06-28 10:45:00 2023-06-28 10:45:00 Outpatient R ROSA MARIA NEWSOME [facility] [id number] [facility] 2023-06-27 15:30:00 2023-06-27 15:30:00 Office Visit Grisel Gillette [facility] 1.2.840.114 350.1.13.10 4.2.7.2.686 [id number] [facility] 2023-06-27 15:15:00 2023-06-27 15:30:00 Lead Sustainability Specialist Visit 2, Adc Lab Rusty Gillettessica [facility] 1.2.840.114 350.1.13.10 4.2.7.2.686 [id number] [facility] 2023-06-27 15:30:00 2023-06-27 15:08:17 Outpatient R GILLETTERUSTYGRISEL [facility] [id number] [facility] 2023-06-27 00:00:00 2023-06-27 00:00:00 Orders Only Doctor Unassigned, Newcomb [facility] 1..840.114 350.1.13.10 4.2.7.2.686 [id number] [facility] 2023-03-11 00:00:00 2023-03-11 00:00:00 Patient Secure Msg Doctor Unassigned, Newcomb [facility] 1.2.840.114 350.1.13.10 4.2.7.2.686 [id number] [facility] 2023-03-04 09:20:00 2023-03-04 09:20:00 Outpatient Daniel GIANCARLO GUILLENSHIRLENESHILA [facility] [id number] [facility] 2023-02-24 13:30:00 2023-02-24 13:45:00 Lead Sustainability Specialist Visit 2[facility] 1.2.840.114 350.1.13.10 4.2.7.2.686 [id number] [facility] 2023-02-24 13:30:00 2023-02-24 12:57:30 Outpatient R GRISEL GILLETTE [facility] [id number] [facility] 2023-02-24 08:00:00 2023-02-24 08:50:08 Office Visit Rusty Gillettessica [facility] 1.2.840.114 350.1.13.10 4.2.7.2.686 [id number] [facility] 2023-02-24 00:00:00 2023-02-24 00:00:00 Telephone Nain Grisel [facility] 1.2.840.114 350.1.13.10 4.2.7.2.686 [id number] [facility] 2023-02-20 00:00:00 2023-02-20 00:00:00 [facility]phone [facility] 1.2840.114 350.1.13.10 4.2.7.2.686 [id number] [facility] 2023-02-18 00:00:00 2023-02-18 00:00:00 Orders Only Doctor Unassigned, Newcomb [facility] 1.2840.114 350.1.13.10 4.2.7.2.686 [id number] [facility] 2023-02-17 00:00:00 2023-02-17 00:00:00 Telephone Grisel Gillette [facility] 1.2.840.114 350.1.13.10 4.2.7.2.686 [id number] [facility] 2023-01-10 13:00:00 2023-01-10 13:30:35 Outpatient R NAIN GRISEL [facility] [id number] [facility] 2023-01-10 13:00:00 2023-01-10 13:30:35 Office Visit Nain Grisel [facility] 1.2.840.114 350.1.13.10 4.2.7.2.686 [id number] [facility] 2023-01-03 00:00:00 2023-01-03 00:00:00 Telephone [facility]isel [facility] 1.2.840.114 350.1.13.10 4.2.7.2.686 [id number] [facility] 2023-01-02 09:15:00 2023-01-02 09:30:00 Lead Sustainability Specialist Visit Pob, [facility] 1.2.840.114 350.1.13.10 4.2.7.2.686 [id number] [facility] 2023-01-02 09:15:00 2023-01-02 09:15:00 Outpatient R GRISEL GILLETTE [facility] [id number] [facility] 2022-12-27 17:00:00 2022-12-27 17:15:00 Lead Sustainability Specialist Visit Pob[facility] 1.2.840.114 350.1.13.10 4.2.7.2.686 [id number] [facility] 2022-12-27 16:00:00 2022-12-27 16:31:18 Outpatient R GRISEL GILLETTE [facility] [id number] [facility] 2022-12-27 16:00:00 2022-12-27 16:31:18 Office Visit Grisel Gillette [facility] 1.2.840.114 350.1.13.10 4.2.7.2.686 [id number] [facility] 2022-09-24 15:00:00 2022-09-24 15:00:00 Outpatient R GRISEL GILLETTE [facility] [id number] [facility] 2022-06-27 15:30:00 2022-06-27 15:45:00 Lead Sustainability Specialist Visit 2, Adc Lab Gillette, [facility] 1.2840.114 350.1.13.10 4.2.7.2.686 [id number] [facility] 2022-06-27 14:30:00 2022-06-27 15:17:17 [facility] [id number] [facility] 2022-06-27 14:30:00 2022-06-27 15:17:17 Office Visit Grisel Gillette [facility] 1.2840.114 350.1.13.10 4.2.7.2.686 [id number] [facility] 2022-06-27 00:00:00 2022-06-27 00:00:00 Orders Only Doctor Unassigned, Newcomb [facility] 1.84.114 350.1.13.10 4.2.7.2.686 [id number] [facility] 2022-06-27 00:00:00 2022-06-27 00:00:00 Letter (Out) Rusty Gillettessica [facility] 1.284.114 350.1.13.10 4.2.7.2.686 [id number] [facility] 2022-05-28 06:16:00 2022-05-28 06:27:00 Emergency X PAULA GONSALES [facility] [id number] [facility] 2022-05-28 06:16:00 2022-05-28 06:27:00 Emergency Paula Gonsales [facility] 1.2.114 350.1.13.10 4.2.7.2.686 [id number] [facility] 2022-05-28 00:00:00 2022-05-28 00:00:00 Letter (Out) Mariza Medina [facility] 1.2.114 350.1.13.10 4.2.7.2.686 [id number] [facility] 2006-01-21 00:00:00 2006-01-21 14:20:11 Outpatient [facility] [id number] [facility] Results Test Description Test Time Test Comments Results Result Co mments Source [facility]EMOGLOB[facility] (A1C)2022-12-28 00:47:03* Test Item Value Reference Range Interpretation Comme nts HGB A1C (test code = 4548-4) 6.1 % 4.0-5.7 H CARLOS (test code = CARLOS) Reference RangesNormal: <5.7%Prediabetes: 5.7 - 6.4%Diabetes: > 6.5% Lab Interpretation (test code = 73436-5) [facility]normal [facility] (A1C)2022-12-28 00:47:03* Test Item Value Reference Range Interpretation Comme nts HGB A1C (test code = 4548-4) 6.1 % 4.0-5.7 H CARLOS (test code = CARLOS) Reference RangesNormal: <5.7%Prediabetes: 5.7 - 6.4%Diabetes: > 6.5% Lab Interpretation (test code = 67268-6) [facility]normal [facility]IMULATING YOOTUFM1629-63-90 00:45:22 * Test Item Value Reference Range Interpretation Comme nts TSH (test code = 2619838611) 5.01 See_Comment H [Automated messa ge] The system which generated this result transmitted reference range: 0.45 - 4.70 mIU/L. The reference range was not used to interpret this result as normal/abnormal. Lab Interpretation (test code = 57572-6) [facility]normal [facility] ZGIMPJD8956-59-82 00:45:22 * Test Item Value Reference Range Interpretation Comme nts TSH (test code = 6578639620) 5.01 See_Comment H [Automated messa ge] The system which generated this result transmitted reference range: 0.45 - 4.70 mIU/L. The reference range was not used to interpret this result as normal/abnormal. Lab Interpretation (test code = 89482-0) Abnormal [facility] [id number] 00:31:42* Test Item Value Reference Range Interpretation Comme nts FREE T4 (test code = 0393502605) 0.83 See_Comment [Automated messa ge] The system which generated this result transmitted reference range: 0.78 - 2.20 ng/dL:. The reference range was not used to interpret this result as normal/abnormal. Lab Interpretation (test code = 48975-2) Normal [facility] [id number] 00:31:42* Test Item Value Reference Range Interpretation Comme nts FREE T4 (test code = 5277633232) 0.83 See_Comment [Automated messa ge] The system which generated this result transmitted reference range: 0.78 - 2.20 ng/dL:. The reference range was not used to interpret this result as normal/abnormal. Lab Interpretation (test code = 20061-6) Normal [facility]. METABOLIC PANEL (36272)2022-12-28 00:15:44* Test Item Value Reference Range Interpretation Comme nts NA (test code = 4526760817) 144 mmol/L 135-145 K (test code = 4148639889) 4.9 mmol/L 3.5-5.0 CL (test code = 2604994284) 101 mmol/L 98-108 CO2 TOTAL (test code = 1705769278) 32 mmol/L 23-31 H AGAP (test code = 1402520686) 11 2-16 BUN (test code = 1433146641) 14 mg/dL 7-23 GLUCOSE (test code = 3871866601) 94 mg/dL 70-110 CREATININE (test code = 0146325987) 1.16 mg/dL 0.60-1.25 TOTAL BILI (test code = 8274398324) 0.4 mg/dL 0.1-1.1 CALCIUM (test code = 9057003982) 9.4 mg/dL 8.6-10.6 T PROTEIN (test code = 6011271292) 7.7 g/dL 6.3-8.2 ALBUMIN (test code = 2353965942) 4.5 g/dL 3.5-5.0 ALK PHOS (test code = 2914714377) 105 U/L 34-122 ALTv (test code = 1742-6) 44 U/L 5-50 AST(SGOT) (test code = 0257685720) 48 U/L 13-40 H eGFR (test code = 5893025468) 69.0 mL/min/1.73m2 CARLOS (test code = CARLOS) [...] imaging tests). Lab Interpretation (test code = 60147-5) Abnormal [facility]. METABOLIC PANEL (23089)2022-12-28 00:15:44* Test Item Value Reference Range Interpretation Comme nts NA (test code = 6799437384) 144 mmol/L 135-145 K (test code = 5894369195) 4.9 mmol/L 3.5-5.0 CL (test code = 8776824024) 101 mmol/L 98-108 CO2 TOTAL (test code = 4615465100) 32 mmol/L 23-31 H AGAP (test code = 9832882830) 11 2-16 BUN (test code = 1547782482) 14 mg/dL 7-23 GLUCOSE (test code = 5288071032) 94 mg/dL 70-110 CREATININE (test code = 2608769200) 1.16 mg/dL 0.60-1.25 TOTAL BILI (test code = 1318897258) 0.4 mg/dL 0.1-1.1 CALCIUM (test code = 7565193931) 9.4 mg/dL 8.6-10.6 T PROTEIN (test code = 6492080555) 7.7 g/dL 6.3-8.2 ALBUMIN (test code = 9305782248) 4.5 g/dL 3.5-5.0 ALK PHOS (test code = 4991478368) 105 U/L 34-122 ALTv (test code = 1742-6) 44 U/L 5-50 AST(SGOT) (test code = 1108822983) 48 U/L 13-40 H eGFR (test code = 4938658993) 69.0 mL/min/1.73m2 CARLOS (test code = CARLOS) [...] imaging tests). Lab Interpretation (test code = 69273-0) Abnormal [facility] WITH BRFC3770-78-91 22:30:50* Test Item Value Reference Range Interpretation Comme nts WBC (test code = 6690-2) 8.71 See_Comment [Automated Cubiea ge] The system which generated this result transmitted reference range: 4.20 - 10.70 10*3/?L. The reference range was not used to interpret this result as normal/abnormal. RBC (test code = 789-8) 4.61 See_Comment [Automated Cubiea ge] The system which generated this result [...] 32.1 g/dL 31.2-35.0 RDW-SD (test code = 04121-9) 42.8 fL 38.5-51.6 RDW-CV (test code = 788-0) 12.4 % 12.1-15.4 PLT (test code = 777-3) 254 See_Comment [Automated Cubiea ge] The system which generated this result transmitted reference range: 150 - 328 10*3/?L. The reference range was not used to interpret this result as normal/abnormal. MPV (test code = 87476-6) 11.5 fL 9.8-13.0 NRBC/100 WBC (test code = 6277803496) 0.0 See_Comment [Automated Long Tail ssage] The system which generated this result transmitted reference range: 0.0 - 10.0 /100 WBCs. The reference range was not used to interpret this result as normal/abnormal. NRBC x10^3 (test code = 7344026091) See_Comment [Automated Long Tail ssage] The system which generated this result transmitted reference range: 10*3/?L. The reference range was not used to interpret this result as normal/abnormal. GRAN MAT (NEUT) % (test code = 770-8) 58.7 % IMM GRAN % (test code = 5529007265) 0.50 % LYMPH % (test code = 736-9) 27.9 % MONO % (test code = 5905-5) 10.0 % EOS % (test code = 713-8) 2.2 % BASO % (test code = 706-2) 0.7 % GRAN MAT x10^3(ANC) (test code = 8641225558) 5.12 10*3/uL 1.99-6.95 IMM GRAN x10^3 (test code = 4194624780) 0.04 10*3/uL 0.00-0.06 LYMPH x10^3 (test code = 731-0) 2.43 10*3/uL 1.09-3.23 MONO x10^3 (test code = 742-7) 0.87 10*3/uL 0.36-1.02 EOS x10^3 (test code = 711-2) 0.19 10*3/uL 0.06-0.53 BASO x10^3 (test code = 704-7) 0.06 10*3/uL 0.01-0.09 [facility] WITH BAPR4094-40-71 22:30:50* Test Item Value Reference Range Interpretation Comme nts WBC (test code = 6690-2) 8.71 See_Comment [Automated messa ge] The system which generated this result transmitted reference range: 4.20 - 10.70 10*3/?L. The reference range was not used to interpret this result as normal/abnormal. RBC (test code = 789-8) 4.61 See_Comment [Automated messa ge] The system which [...] 32.1 g/dL 31.2-35.0 RDW-SD (test code = 70395-3) 42.8 fL 38.5-51.6 RDW-CV (test code = 788-0) 12.4 % 12.1-15.4 PLT (test code = 777-3) 254 See_Comment [Automated messa ge] The system which generated this result transmitted reference range: 150 - 328 10*3/?L. The reference range was not used to interpret this result as normal/abnormal. MPV (test code = 56711-6) 11.5 fL 9.8-13.0 NRBC/100 WBC (test code = 1596826284) 0.0 See_Comment [Automated me ssage] The system which generated this result transmitted reference range: 0.0 - 10.0 /100 WBCs. The reference range was not used to interpret this result as normal/abnormal. NRBC x10^3 (test code = 3385521143) See_Comment [Automated me ssage] The system which generated this result transmitted reference range: 10*3/?L. The reference range was not used to interpret this result as normal/abnormal. GRAN MAT (NEUT) % (test code = 770-8) 58.7 % IMM GRAN % (test code = 0948173403) 0.50 % LYMPH % (test code = 736-9) 27.9 % MONO % (test code = 5905-5) 10.0 % EOS % (test code = 713-8) 2.2 % BASO % (test code = 706-2) 0.7 % GRAN MAT x10^3(ANC) (test code = 9799011765) 5.12 10*3/uL 1.99-6.95 IMM GRAN x10^3 (test code = 6004685947) 0.04 10*3/uL 0.00-0.06 LYMPH x10^3 (test code = 731-0) 2.43 10*3/uL 1.09-3.23 MONO x10^3 (test code = 742-7) 0.87 10*3/uL 0.36-1.02 EOS x10^3 (test code = 711-2) 0.19 10*3/uL 0.06-0.53 BASO x10^3 (test code = 704-7) 0.06 10*3/uL 0.01-0.09 [facility] Notes Date/Time Note Provider Source 2023-11-04 12:35:52 2678-80-11Y09:35:[address] Galeano patient needs to report to ER and f/u with Cardiology 53818-3Ycxejftma encounter LhlqZN2985-35-63T07:43:37Telephone encounter NoteTXT1.2.840.131706.1.13.104.2.7.2 .724205|[id number] for patient tnsn92953-1XooaXLMFHREZYIYZdlqatbwb C-CDA narrative sibd11326230Vvou [address] Ex[id number] LBNTUKSQBTFHTOJZRWMFLY9710-07-52X08: 43:371.2.840.596178.1.72.3.15|1.2.84 0.301437.1.13.104.2.7.2.727879_21261 55932 Shellie Gonsales [facility] 2023-11-04 08:37:46 0535-09-22H01:37:46 Per OV note on 10/20/2023, pt was seen for dizziness, was referred stat to Cardiology and pt no showed appt. Pt states he had to go home and get some sleep. Pt reports dizziness has increased, reports pulsation in ears started a couple of weeks after started taking medications. Pt reports has been taking BP at home, last time he took BP was last Friday and reading was 154/80. Has not taken BP again due to low battery in monitor, educated on importance of BP log. Reports SOB only when walking and going upstairs denies chest pain, or any other sx's at this time. Pt reports notices dizziness when going from sitting to standing or laying flat on back. Pt reports has been taking medications as prescribed. 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 Educated on importance of this appt, pt continues to decline appt, Advised if sx's worsen, has chest pain, SOB on rest or other sx's worsen pt will need to proceed to ER, Pt states will go to ER tomorrow if he needs to. Will forward message to provider and Cardiology PSS to schedule appt at pt convenience for f/u.Disp Refills Start End DAWhydroCHLOROthiazide 25 mg tablet 90 tablet 1 10/20/2023 -- --Sig: Take 1 tablet by mouth in the morning.Sent to pharmacy as: hydroCHLOROthiazide 25 mg tablet (ESIDRIX)Class: eRXRoute: OralOrder: [id number]/Time Signed: 10/20/2023 11:36E-Prescribing Status: Receipt confirmed by pharmacy (10/20/2023 11:37 AM CDT)carvediloL (COREG) 25 mg tablet 180 tablet 1 10/20/2023 -- --Sig: Take 1 tablet by mouth in the morning and 1 tablet in the evening. Take with meals.Sent to pharmacy as: carvediloL 25 mg tablet (Coreg)Class: eRXRoute: OralOrder: [id number]/Time Signed: 10/20/2023 11:36E-Prescribing Status: Receipt confirmed by pharmacy (10/20/2023 11:37 AM CDT)amLODIPine (NORVASC) 10 mg tablet 90 tablet 1 10/20/2023 -- --Sig: Take 1 tablet by mouth in the morning.Sent to pharmacy as: amLODIPine 10 mg tablet (Norvasc)Class: eRXRoute: OralOrder: [id number]/Time Signed: 10/20/2023 11:36E-Prescribing Status: Receipt confirmed by pharmacy (10/20/2023 11:37 AM CDT) 74109-3Ftqprrgaw encounter RzrsFQ4108-59-14P59:36:55Telephone encounter NoteTXT1.2.840.154449.1.13.104.2.7.2 .938122|[id number] for patient wovm82330-8GtnvOHHNQMEUBQIKbjoqrwog C-CDA narrative [id number] Chaitanya Roldan RN[id number] BRTXJBWDMOMPQVPVPFYHGK5548-24-86T33: 36:551.2.840.339126.1.72.3.15|1.2.84 0.945159.1.13.104.2.7.2.727879_21258 90417 Peace Roldan RN [facility] 2023-11-04 08:10:06 9200-69-28W21:10:06 Copied from [facility] #[id number]. Topic: Clinical - Medical Advice>> Nov 04, 2023 8:08 AM Patient Peanut Butter Maker wrote:Pt called and states that he feels dizzy whenever he stands up and hears a pulse in his ear. He would like to discuss this with clinic nurses. Please advise. 17464-3Omntfdict encounter NattNP1552-78-45Q86:43:37Telephone encounter NoteTXT1.2.840.277765.1.13.104.2.7.2 .877603|0839879339PQGwfiqgsej for patient jgop28304-0NeadVXZZBZQHADCSffofvsid C-CDA narrative vdru85766708JpjouudCoco Patten[id number] NNOKSXKTVORTOAZSMKPDUL2678-05-24H28: 43:371.2.840.420969.1.72.3.15|1.2.84 0.502655.1.13.104.2.7.2.727879_21258 82680 Coco Suarez [facility] 2023-10-22 14:11:30 4805-58-08I07:11:30 Called patient and informed of US of bilateral leg. 56141-8Zxtwwkqpt encounter JiyrVA1273-91-55Z36:11:59Telephone encounter NoteTXT1.2.840.478551.1.13.104.2.7.2 .964233|4585043784JXInqzoltec for patient ssfn23460-0VpcpWSHCEKEZICBMyannrwfi C-CDA narrative [id number] M Serrano [address][id number] ACBGATPKVRQOTLWDPBHDHS7288-02-35W05: 11:591.2.840.763116.1.72.3.15|1.2.84 0.381065.1.13.104.2.7.2.727879_21161 08050 Misa Valdovinos MA [facility] 2023-10-22 14:00:30 9930-60-67P75:00:30 Copied from [facility] #[id number]. Topic: Clinical - Medical Advice>> Oct 22, 2023 1:59 PM Patient Peanut Butter Maker wrote:Pt is requesting results of a scan on legs. 97262-3Qzjvoykdg encounter TznnXU6716-70-52E06:00:54Telephone encounter NoteTXT1.2.840.925234.1.13.104.2.7.2 .920372|5162550424JBEvcxckdlf for patient cbtj76399-5SyvuQZAKXVIBEJRNeuhagbug C-CDA narrative ioek93572033Fmxzh J [facility] Centerellahahnemann hospitalCRISTINA91 [id number] FHEUDLMCWJDZUFSTGSLUXU1763-94-39R98: 00:541.2.840.312764.1.72.3.15|1.2.84 0.458789.1.13.104.2.7.2.727879_21161 95156 Gretta Birmingham [facility] 2023-10-21 15:00:00 5139-97-11K67:00:00 Interpretation Summary The BILATERAL lower extremity venous system was examined. The RIGHT mid to distal femoral and BILATERAL peroneal veins were not visualized. No evidence of deep or superficial venous thrombosis in either lower extremityPlease follow up with CardiologyPlease schedule STAT referral/appointmentER for any chest pain, dizziness, weakness 93729-7Yczmshgx ocihRR2175-77-13C88:14:03Progress noteTXT1.2.840.005252.1.13.104.2.7.2 .492169|4676418469HJAuznfpaxx for patient xgtn75965-2BtruPOCDXBFNZZDYgykfrajr C-CDA narrative textCRISTINA91 [address] [id number] IYWGZRLNPJMKSQBACZKJEA8061-14-81M82: 14:031.2.840.674613.1.72.3.15|1.2.84 0.083437.1.13.104.2.7.2.727879_[address] [facility] 2023-10-21 07:45:00 6477-64-51S48:45:00 Images from the original note were not included.Venipuncture collection performed by clean technique on the left anticubitus. Total of 1 attempts were made. Slight pressure and a bandage/dressing were applied to the site(s). The patient experienced no complications. The following specimens were processed according to instructions and sent to [facility] laboratories per lab order on 10/21/2023:LT BLUESST 1REDLAVPPTDK GREEN (LiHep)DK GREEN (SodH)GRAYDK BLUE (K2)DK BLUE (S)ACDBlood CultureNIPT/NTD 99547-5Oxnmw ZijdSF3880-47-64P66:39:32Nurse NoteTXT1.2.840.471383.1.13.104.2.7.2 .769842|3719556445YOBbcmukbak for patient fxep98627-5Lrvoa NoteLNNARRATIVEFormatted C-CDA narrative text[address] StreetGfeqCrun[id number] LSNRDJIGVXYIPCPYPMJFLM7319-74-66E76: 39:321.2.840.300648.1.72.3.15|1.2.84 0.494785.1.13.104.2.7.2.727879_211[address] [facility] 2023-10-20 09:30:00 0231-36-48S07:30:00Summary: Patient not fasting. Will return for Lipids Images from the original note were not included.Venipuncture collection performed by clean technique on the left anticubitus. Total of 1 attempts were made. Slight pressure and a bandage/dressing were applied to the site(s). The patient experienced no complications. The following specimens were processed according to instructions and sent to [facility] laboratories per lab order on 10/20/2023:LT BLUESST 1REDLAV 1PPTDK GREEN (LiHep)DK GREEN (SodH)GRAYDK BLUE (K2)DK BLUE (S)ACDBlood CultureNIPT/NTD 69952-7Jhezr JdzbKU0455-81-97F23:36:26Nurse NoteTXT1.2.840.253682.1.13.104.2.7.2 .236811|7652622031WWTkfeesoss for patient mxpy61934-5Kezuo NoteLNNARRATIVEFormatted C-CDA narrative text[id number] LURVFEATORMJFJYHYYDBQZ5999-70-51A92: 36:261.2.840.777182.1.72.3.15|1.2.84 0.308406.1.13.104.2.7.2.727879_[address] [facility] 2023-10-20 08:00:00 6499-81-46Y12:00:00Addended by: GRISEL CAMARA on: 10/20/2023 11:37 AMModules accepted: Orders 80582-9Wefhvssj DtiumzrcJE7416-88-74Z39:37:10Addendu DocumentTXT1.2.840.157914.1.13.104.2 .7.2.342637|[id number] for patient hngw15449-6IbtkQNSYSPTCUMQCvbxpjxrk C-CDA narrative [id number] CIMOCONZBZRKPTOZLOLKQO4969-53-03O90: 37:101.2.840.840486.1.72.3.15|1.2.84 0.786335.1.13.104.2.7.2.727879_211[address] [facility] 2023-07-25 09:45:00 1408-22-85Y19:45:00 Images from the original note were not included.Patient has been identified by and name and was provided with cup, antiseptic towelette, and clean catch instructions. 2 urine specimen(s) sent.Unpreserved 1Urine Culture 1Aptima tubeOther urine 16660-7Soees WraiSA1059-79-53M02:31:24Nurse NoteTXT1.2.840.824483.1.13.104.2.7.2 .376468|8655078241LALfksymezq for patient vhmp00539-6Wffzx NoteLNNARRATIVEFormatted C-CDA narrative text[id number] AMVOAULIRYFGFCLIOILRUU3909-80-66Y06: 31:241.2.840.922864.1.72.3.15|1.2.84 0.868111.1.13.104.2.7.2.727879_[address] [facility] 2023-07-18 14:54:16 6355-24-88W27:54:16 Patient requesting to get SELF PAY estimate for CPT 88367. 71882-6Wlvepmzen encounter WgkbNP6243-61-99U02:55:18Telephone encounter NoteTXT1.2.840.421084.1.13.104.2.7.2 .536991|5411136954KHRmhcoyjdh for patient leyc28526-6JfmgYCOVHUUKMBLVeitcwhja C-CDA narrative fnbh562086829Egswtc L [address]vdGalvestonGalvestonTXTX[address]75[address] PGVFLYLDXNDHQQCVJFSKXH4686-41-30I97: 55:181.2.840.798054.1.72.3.15|1.2.84 0.995422.1.13.104.2.7.2.727879_20388 [address] Claudine Falcon [facility] 2023-07-18 14:51:25 8026-37-04V28:51:25 Bariatric Surgery Benefits VerificationDr. Jessa Portillo NPI [id number]. Anthony Dover NPI [id number] Providers Individual Tax ID: [id number] Tax ID: [id number] [facility] [address]En. [phone] Ijvcojk Name: Gurpreet Davis : 1980 Carrier: [facility] Insurance #: [id number] ID: [id number] Ins Group#: [id number] need to verify benefits for bariatric surgery.CPT: 64985 - Laparoscopic Procedures on the StomachDiagnosis Code: E66.01 - Morbid (severe) obesity due to excess caloriesDate of New Patient Appt: CANCELEDBMI: ?4035-39 At least one comorbidity:30-35: Diabetes onlyName of senior human resources representative: Juhi Call reference number: [id number] does the patients insurance plan year start: 05/19/2023Is this a covered benefit under this patient's policy? NoCompleted by: CLAUDINE FALCON07/18/23 79112-7Leadvlesr encounter SbxlGX9484-14-61E40:55:18Telephone encounter NoteTXT1.2.840.237083.1.13.104.2.7.2 .577942|[id number] for patient qehp94002-6JadlQZWCUMXLVMYKvjraxrtw C-CDA narrative textUTCARRIE TINGLEY [facility] - [address] KckkP[id number] YZRKYBFUYUVOCBHIDOFFLS8160-11-56F40: 55:181.2.840.909604.1.72.3.15|1.2.84 0.492375.1.13.104.2.7.2.727879_[address] [facility] 2023-07-15 13:17:48 4198-28-60C74:17:48 Pt has a scheduled appointment on 07/24. 65737-8Ocguvlvtj encounter KtmaVW7722-60-43K55:18:06Telephone encounter NoteTXT1.2.840.492956.1.13.104.2.7.2 .322960|7966485261CSSpfhqzqaw for patient pboo98457-5GjrfKIVWSIIDIQDBqzjqdvun C-CDA narrative lzhh938190137Qsgcpxt D Bo[address] [id number] FLKLYFNUZAQSLMTYJSVQGE8277-46-85F74: 18:061.2.840.560387.1.72.3.15|1.2.84 0.849685.1.13.104.2.7.2.727879_20352 [address] Dinora Diaz [facility] 2023-07-15 08:42:16 1668-89-36E38:42:16 Please schedule follow up next weekNeed to discuss abnormal labs and treatment 33966-6Luosnthmj encounter HssvQW2493-92-69X07:42:34Telephone encounter NoteTXT1.2.840.761342.1.13.104.2.7.2 .469062|7775956295RRWihlefouu for patient umxp23363-4GzghQLZVEDBLYTITusvtjwrg C-CDA narrative text[id number] AKFFVBQZHCDSOHDCWCOTHY1351-29-46N53: 42:341.2.840.818258.1.72.3.15|1.2.84 0.912367.1.13.104.2.7.2.727879_[address] [facility] 2023-06-28 10:45:00 5372-70-53C59:45:00 Images from the original note were not included.Venipuncture collection performed by clean technique on the left anticubitus. Total of 1 attempts were made. Slight pressure and a bandage/dressing were applied to the site(s). The patient experienced no complications. The following specimens were processed according to instructions and sent to [facility] laboratories per lab order on 06/28/2023:LT BLUESST 1REDLAV 2PPTDK GREEN (LiHep)DK GREEN (SodH)GRAYDK BLUE (K2)DK BLUE (S)ACDBlood CultureNIPT/NTDPatient has been identified by and name and was provided with cup, antiseptic towelette, and clean catch instructions. 1 urine specimen(s) sent.Unpreserved 1Urine CultureAptima tubeOther urine 35048-6Dmyaj CpilBY6054-69-04S98:33:15Nurse NoteTXT1.2.840.043176.1.13.104.2.7.2 .441303|[id number] for patient zdcs98894-7Mzsdr NoteLNNARRATIVEFormatted C-CDA narrative text[address] EnaaC[id number] BPMKTBIIBVFOUOSTWPTCEQ5226-50-39C66: 33:151.2.840.457580.1.72.3.15|1.2.84 0.148248.1.13.104.2.7.2.727879_[address] [facility] 2023-06-27 15:15:00 8365-71-66D10:15:00 Pt not fasting and wants to come back another time. 64502-2Swaxk DmzvYO2547-41-47H97:26:53Nurse NoteTXT1.2.840.645481.1.13.104.2.7.2 .465835|[id number] for patient bmmg27059-4Hzwbd NoteLNNARRATIVEFormatted C-CDA narrative [id number] R Guajard[address] [id number] LEYAGWKBKJIIUDTAQDIPCI1512-53-53S44: 26:531.2.840.323595.1.72.3.15|1.2.84 0.874197.1.13.104.2.7.2.727879_ 40967 Mary Turcios [facility] 2023-01-03 12:57:43 5134-49-85M46:57:43 Spoke with patientHe denies any chest pain, weakness, shortness of breathGiven ER warnings to go if he does experience these symptomsWill start Coreg twice a dayTo continue other medicationsKeep BP log and keep follow up to reviewPatient verbalizes understanding 95474-4Ymvyjepzs encounter BidhLT5408-85-58S02:00:28Telephone encounter NoteTXT1.2.840.197194.1.13.104.2.7.2 .838467|[id number] for patient mpls46737-2WjbeUVUAFANMNE[address] [id number] ZSSACXKSBNSAGHOVBPMYNF5285-15-22J82: 00:281.2.840.876837.1.72.3.15|1.2.84 0.962184.1.13.104.2.7.2.727879_18[address] [facility] 2023-01-03 12:46:40 1532-96-92X22:46:40 Patient states he checked his blood pressure 3 times. It was 169/105, 179/115 and the last time at 1244 pm it was 144/91. He is feeling dizzy and light headed. Nurse notified. 21255-9Vnkigkyfi encounter DogqMN4167-00-74I19:50:34Telephone encounter NoteTXT1.2.840.198524.1.13.104.2.7.2 .387107|[id number] for patient [id number] S Hernandez[address] Vp[id number] UVSQTOWIIIAWGPYENPOSPQ5372-87-86Y61: 50:341.2.840.571607.1.72.3.15|1.2.84 0.425710.1.13.104.2.7.2.727879_18778 126[address] [address] [facility] 2023-01-02 09:15:00 7428-78-39F06:15:00 Images from the original note were not [...] processed according to instructions and sent to [facility] laboratories per lab order on 01/02/2023: LT BLUE SST 1 RED LAV PPT DK GREEN (LiHep) DK GREEN (SodH) HERRERA DK BLUE (K2) DK BLUE (S) ACD Blood Culture NIPT/NTD 82103-2Tlfnc TthuKK5765-16-65E67:33:03Nurse NoteTXT1.2.840.034654.1.13.104.2.7.2 .707632|[id number] for patient gsxe82921-5Ljzvq NoteLNUT[address]Es[id number] BEGIQSIIBHULJCJYQEHQZZ5553-36-53A69: 33:031.2.840.053943.1.72.3.15|1.2.84 0.718923.1.13.104.2.7.2.727879_[address] [facility] 2022-12-27 17:00:00 8616-17-49K98:00:00 Images from the original note were not [...] processed according to instructions and sent to [facility] laboratories per lab order on 12/27/2022: LT BLUE SST 1 RED LAV 2 PPT DK GREEN (LiHep) DK GREEN (SodH) HERRERA DK BLUE (K2) DK BLUE (S) ACD Blood Culture NIPT/NTD Patient has been identified by and name and was provided with cup, antiseptic towelette, and clean catch instructions. 1 urine specimen(s) sent. Unpreserved 1 Urine Culture Aptima tube Other urine [id number] [id number]:12:35Nurse [id number] for patient [id number] [address] [id number] [id number]: 12:[id number]|1.2.84 [id number] [facility]
[2023-11-04 16:06] LABS: Anion Gap 9.4 mEq/L (5.0-15.0); Potassium 3.4 mEq/L (3.5-5.1); Troponin High Sensitivity 7.6 pg/mL (<58.9)
[2023-11-04 17:24] VITALS: BP 120/67; TEMP 97.5; O2SAT 99
--- NOTE | 2023-11-04 18:13 | EDPHYS ---
Physician Documentation [facility] Name: Gurpreet Davis Age: 43 yrs Sex: Male : 1980 Arrival Date: 11/04/2023 Time: 14:42 Bed 15 Private MD: ED Physician Rommel Pierre HPI: 11/03 15:02 This 43 yrs old Black Male presents to ER via Ambulatory with complaints of Back Pain, ec2 Dizziness. 15:02 Patient arrives today for evaluation of back pain and dizziness.. ec2 15:03 Patient arrives today for 2 weeks of dizziness which she describes as lightheadedness ec2 when he goes from a sitting to a standing position. Patient reports some occasional nausea, no vomiting. Reports that he does not drink enough water typically. Patient denies any abdominal pain. Also reports right mid back pain. Denies any falls injuries or trauma. Denies any radiation pain into the lower extremities.. Historical: - PMHx: 14:46 Hypertensive disorder; ll1 - PSHx: 14:50 None; ll1 - Immunization history:: Adult Immunizations up to date. - Infectious Disease History:: Denies. - Social history:: Smoking status: Patient denies any tobacco usage or history of. ROS: 15:03 Constitutional: as per hpi ec2 Exam: 15:03 Constitutional: GEN: NAD Head: atraumatic Eyes: EOMI Ears: External ears are ec2 normal. CV: regular rate LUNGS: no respiratory distress ABD: non-distended, soft, nontender, no guarding, not rigid. SKIN: no evidence of rashes MSK: no evidence of trauma NEURO: moves all extremities equally, cranial nerves II through XII intact, strength intact all 4 extremities. Vital Signs: 14:46 BP 168 / 71; Pulse 81; Resp 18; Temp 97.5; Pulse Ox 97% on R/A; Weight 181.44 kg; ll1 Height 5 ft. 6 in. ; Pain 5/10; 16:00 BP 120 / 67; Pulse 74; Resp 17; Pulse Ox 99% on R/A; rs5 16:35 BP 125 / 74; Pulse 71; Resp 17; Pulse Ox 99% on R/A; rs5 14:46 Body Mass Index 64.56 (181.44 kg, 167.64 cm) ll1 14:46 Pain Scale: Adult ll1 MDM: 15:02 Patient medically screened. ec2 15:03 Data reviewed: vital signs. ED course: Patient arrives today for lightheadedness as ec2 well as right rib pain. Examination remarkable for well-appearing neuro intact individual is otherwise in no acute distress with a reassuring examination. Will obtain lab work, EKG, chest x-ray and rib series. Differential diagnosis includes electrolyte disturbances, arrhythmia, anemia, orthostatic hypotension. . 15:37 ED course: Chest x-ray and rib series showed no traumatic processes . ec2 16:03 ED course: EKG independently reviewed and interpreted by me, shows normal sinus rhythm, ec2 rate 70, benign early repolarization noted, component of hypertrophy noted as well. 16:25 ED course: Metabolic profile shows slight hypokalemia with a potassium of 3.4, no ec2 significant renal abnormality, CBC is reassuring, troponin is reassuring. Understands the patient remains well-appearing in no acute distress. Suspect orthostasis causing the patient's symptoms. Will discharge home, check to monitor potassium intake. Return precautions given . 11/03 15:02 Order name: Basic Metabolic Panel; Complete Time: 16:25 ec2 11/03 15:02 Order name: CBC with Diff; Complete Time: 16:25 ec2 11/03 15:02 Order name: NT PRO-BNP; Complete Time: 16:25 ec2 11/03 15:02 Order name: Troponin HS; Complete Time: 16:25 ec2 11/03 15:02 Order name: XRAY Chest (1 view); Complete Time: 15:37 ec2 11/03 15:03 Order name: Ribs Right XRAY; Complete Time: 15:37 ec2 11/03 15:02 Order name: EKG; Complete Time: 15:03 ec2 11/03 15:02 Order name: Cardiac monitoring; Complete Time: 15:56 ec2 11/03 15:02 Order name: EKG - Nurse/Tech; Complete Time: 15:56 ec2 11/03 15:02 Order name: IV Saline Lock; Complete Time: 15:56 ec2 11/03 15:02 Order name: Labs collected and sent; Complete Time: 15:56 ec2 11/03 15:02 Order name: O2 Per Protocol; Complete Time: 15:56 ec2 11/03 15:02 Order name: O2 Sat Monitoring; Complete Time: 15:56 ec2 Administered Medications: 15:35 Drug: NS 0.9% IV 1000 ml IV at 1 bolus Per protocol; 1000 mL bolus Route: IV; Rate: 1 rs5 bolus; Site: right hand; 16:00 Follow up: Response: No adverse reaction rs5 Disposition Summary: 11/04/23 16:25 Discharge Ordered Notes: Location: Home ec2 Condition: Stable ec2 Diagnosis - Hypokalemia ec2 - Orthostatic hypotension ec2 Followup: ec2 - With: Private Physician - When: - Reason: Re-evaluation by your physician Discharge Instructions: - Discharge Summary Sheet ec2 - Potassium Content of Foods ec2 - Orthostatic Hypotension ec2 Forms: - Work release form rs5 - Medication Reconciliation Form ec2 - Antibiotic Education ec2 - Prescription Opioid Use ec2 - Patient Portal Instructions ec2 - Leadership Thank You Letter ec2 Signatures: Dispatcher [employer] Jose Haro RN RN ll1 Bernabe Vaughn RN RN rs5 Rommel Pierre MD MD ec2 Corrections: (The following items were deleted from the chart) 15:03 15:03 BASIC METABOLIC PANEL+C.LAB.BRZ ordered. EDMS EDMS 15:03 15:03 CBC+H.LAB.BRZ ordered. EDMS EDMS 15:03 15:03 PROBNP+C.LAB.BRZ ordered. EDMS EDMS 15:03 15:03 Troponin High Sensitivity+C.LAB.BRZ ordered. EDMS EDMS 15:03 15:03 Ribs Right+RAD.RAD.BRZ ordered. EDMS EDMS
--- NOTE | 2023-11-04 18:13 | ER ---
Nurse's Notes [facility] Name: Gurpreet Davis Age: 43 yrs Sex: Male : 1980 Arrival Date: 11/04/2023 Time: 14:42 Bed 15 Private MD: Diagnosis: Hypokalemia;Orthostatic hypotension Presentation: 11/03 14:46 Chief complaint: Patient states: Dizziness for 2 weeks. Feels like he might pass out ll1 after standing quickly. Back pain for 2-3 days. Coronavirus screen: Client denies travel out of the [place] in the last 14 days. At this time, the client does not indicate any symptoms associated with coronavirus-19. Ebola Screen: Patient denies travel to an Ebola-affected area in the 21 days before illness onset. Initial Sepsis Screen: Does the patient meet any 2 criteria? No. Patient's initial sepsis screen is negative. Does the patient have a suspected source of infection? No. Patient's initial sepsis screen is negative. Risk Assessment: Do you want to hurt yourself or someone else? Patient reports no desire to harm self or others. Onset of symptoms was October 21, 2023. 14:46 Method Of Arrival: Ambulatory ll1 14:46 Acuity: YURY 3 ll1 Triage Assessment: 14:51 General: Appears uncomfortable, Behavior is calm, cooperative, appropriate for age. ll1 Pain: Complains of pain in back Quality of pain is described as aching. Neuro: Reports dizziness, a syncopal episode. Musculoskeletal: Reports pain in back. Historical: - PMHx: 14:46 Hypertensive disorder; ll1 - PSHx: 14:50 None; ll1 - Immunization history:: Adult Immunizations up to date. - Infectious Disease History:: Denies. - Social history:: Smoking status: Patient denies any tobacco usage or history of. Screenin:52 [facility] ED Fall Risk Assessment (Adult) History of falling in the last 3 months, rs5 including since admission No falls in past 3 months (0 pts) Confusion or Disorientation No (0 pts) Intoxicated or Sedated No (0 pts) Impaired Gait No (0 pts) Mobility Assist Device Used No (0 pt) Altered Elimination No (0 pt) Score/Fall Risk Level 0 - 2 = Low Risk Oriented to surroundings, Maintained a safe environment. 14:52 Abuse screen:. Nutritional screening: No deficits noted. Tuberculosis screening: No rs5 symptoms or risk factors identified. Assessment: 14:52 General: Appears in no apparent distress. comfortable, Behavior is calm, cooperative. rs5 Pain: Complains of pain in back Pain currently is 3 out of 10 on a pain scale. Quality of pain is described as aching, Is intermittent. Neuro: Level of Consciousness is awake, alert, obeys commands, Oriented to person, place, time, situation. Cardiovascular: Patient's skin is warm and dry. Rhythm is regular. Respiratory: Airway is patent Respiratory effort is even, unlabored, Respiratory pattern is regular, symmetrical. GI: Abdomen is round non-distended, Abd is soft and non tender X 4 quads. GI: Reports increased back pain when attempting to pass stool. pt denies abnormal stool patters and denies diarrhea. : No signs and/or symptoms were reported regarding the genitourinary system. EENT: No signs and/or symptoms were reported regarding the EENT system. Derm: Skin is intact, Skin is moist, Skin is normal, Skin temperature is warm. 16:05 Reassessment: Patient and/or family updated on plan of care and expected duration. Pain rs5 level reassessed. Patient is alert, oriented x 3, equal unlabored respirations, skin warm/dry/pink. Patient denies pain at this time. 16:44 Reassessment: No changes from previously documented assessment. rs5 Vital Signs: 14:46 BP 168 / 71; Pulse 81; Resp 18; Temp 97.5; Pulse Ox 97% on R/A; Weight 181.44 kg; ll1 Height 5 ft. 6 in. ; Pain 5/10; 16:00 BP 120 / 67; Pulse 74; Resp 17; Pulse Ox 99% on R/A; rs5 16:35 BP 125 / 74; Pulse 71; Resp 17; Pulse Ox 99% on R/A; rs5 14:46 Body Mass Index 64.56 (181.44 kg, 167.64 cm) ll1 14:46 Pain Scale: Adult ll1 ED Course: 14:46 Patient arrived in ED. ll1 14:46 Rommel Pierre MD is Attending Physician. ec2 14:46 Arm band placed on. ll1 14:50 Triage completed. ll1 14:52 Patient has correct armband on for positive identification. Placed in gown. Bed in low rs5 position. Call light in reach. Side rails up X2. 15:00 Inserted saline lock: 22 gauge in right hand, using aseptic technique. rs5 15:26 XRAY Chest (1 view) In Process Unspecified. EDMS 15:26 Ribs Right XRAY In Process Unspecified. EDMS 15:42 Bernabe Vaughn, RN is Primary Nurse. rs5 15:59 No provider procedures requiring assistance completed. rs5 16:45 IV discontinued, intact, bleeding controlled, No redness/swelling at site. Pressure rs5 dressing applied. Administered Medications: 15:35 Drug: NS 0.9% IV 1000 ml IV at 1 bolus Per protocol; 1000 mL bolus Route: IV; Rate: 1 rs5 bolus; Site: right hand; 16:00 Follow up: Response: No adverse reaction rs5 Medication: 15:59 VIS not applicable for this client. rs5 Outcome: 16:25 Discharge ordered by . ec2 16:40 Discharged to home ambulatory, rs5 16:40 Condition: stable 16:40 Discharge instructions given to patient, family, Instructed on discharge instructions, follow up and referral plans. Demonstrated understanding of instructions, follow-up care, 16:49 Patient left the ED. rs5 Signatures: Dispatcher [employer] Jose Haro RN RN ll1 Bernabe Vaughn, RN RN rs5 Rommel Pierre MD MD ec2 Corrections: (The following items were deleted from the chart) 14:50 14:46 Pulse 81bpm; Resp 18bpm; Pulse Ox 97% RA; Temp 97.5F; 181.44 kg; Height 5 ft. 6 ll1 in.; BMI: 64.5; Pain 5/10, Adult; ll1
== END 2023-11-04 16:49 | disposition home or self-care (01) ==
LOC: ER 14:42
DX: E87.6 Hypokalemia (principal); I95.1 Orthostatic hypotension; M54.9 Dorsalgia, unspecified
CPT/HCPCS: 36415; 71045; 80048; 83880; 84484; 85025; 93005